=== PATIENT | female | born 1940 | race Caucasian/White ===

== ENCOUNTER → 2017-08-06 | Outpatient (CLI) | payer MEDICARE ==
[~2017-08-06] MED LIST: ALLO300 PO; ASPI325 PO; ASPI81CH; CALCAVITD PO; CEFU250 PO; CEPH500 PO; CYCL10 PO; DOCU100 PO; ELIQUIS5 MG PO; ERGO50000 PO; EXEM25 PO; FENO160 PO; FERR325 PO; FISH OIL PO; HYDACE5 PO; HYDACE7.5; HYDACE7.5 PO; HYDCOR2.5B TOP; HYDMOR2 PO; Hydrocodone-Ap1 EA20; IBUPROFEN PO; LEVSOD75 PO; LINZESS145 MCG PO; LISI20 PO; LISINOPRIL PO; METO100ER PO; MULTIVITAMIN PO; MULVITA PO; MULVITMIND PO; NAPR550 PO; NORT10 PO; NORT50 PO; Norco 7.5-3251 EACH PO; Nystatin15 GM TOP; OLME20; OXYB5 PO; PANT40 PO; Percocet 5-3251 EACH PO; SENN187 PO; SILSUL1TC; SIMV10 PO; STOMUL PO; STOOL SOFTENER PO; TRAZ100 PO; TRIM100 PO; VITAMIN C PO; WARF5; ZESTRIL40 MG PO
[2017-08-06 10:15] LABS: BASOPHILS ABSOLUTE AUTO 0.08 K/mm3 (0.00-0.23); BASOPHILS PERCENT AUTO 1 % (0-2); EOSINOPHILS ABSOLUTE AUTO 0.27 K/mm3 (0.00-0.68); EOSINOPHILS PERCENT AUTO 3 % (0-6); Hematocrit 46.4 % (33.0-51.0); Hemoglobin 15.4 g/dL (11.5-16.0); IMMATURE GRAN ABSOLUTE AUTO 0.04 K/mm3 (0.00-0.10); IMMATURE GRAN PERCENT AUTO 1 % (0-1); LYMPHOCYTES PERCENT AUTO 23 % (21-46); MONOCYTES ABSOLUTE AUTO 0.98 K/mm3 (0.16-1.47); MONOCYTES PERCENT AUTO 12 % (4-13); Mean Corpuscular HGB 32.5 pg (26.0-34.0); Mean Corpuscular HGB Conc 33.2 g/dL (31.5-36.5); Mean Corpuscular Volume 98 fL (80-100); Mean Platelet Volume 10.5 fL (9.1-12.4); NEUTROPHILS ABSOLUTE AUTO 5.07 K/mm3 (1.96-9.15); NEUTROPHILS PERCENT AUTO 61 % (41-73); Platelet Count 200 K/mm3 (150-400); RDW Coefficient Variation 13.6 % (11.7-14.2); RDW Standard Deviation 49.7 fL (35.1-46.3); Red Blood Cell Count 4.74 M/mm3 (3.80-5.20); White Blood Cell Count 8.34 K/mm3 (4.00-11.30)
[2017-08-06 10:28] LABS: Albumin, Blood 3.5 g/dL (3.4-5.0); Albumin/Globulin Ratio 0.9 (0.8-1.8); Bilirubin, Total 0.6 mg/dL (0.1-1.0); Bun/Creatinine Ratio 13.5 (12.0-20.0); Calcium, Blood 8.7 mg/dL (8.5-10.1); Creatinine, Blood 1.04 mg/dL (0.40-1.00); Globulin, Blood 3.7 g/dL (2.2-4.0); Total Protein, Blood 7.2 g/dL (6.4-8.2)
== END ==
LOC: LAB EV 10:12 → LAB SHORT 10:12
PROVIDERS: General Practice
DX: R06.2 Wheezing (principal)
CPT/HCPCS: 80053; 85025

== ENCOUNTER → 2017-08-15 | Outpatient (CLI) | payer MEDICARE | LOC: LAB EV 16:07 | DX: R05 Cough (principal) | CPT/HCPCS: 87070; 87077; 87186; 87205 ==

== ENCOUNTER 2017-12-29 00:20 | Emergency (ER) | payer OTHER, MEDICARE ==
[~2017-12-29] VITALS: Ht 152.4 cm; Wt 120.2 kg
[2017-12-29 04:45] LABS: Calcium, Ionized (POC) 1.14 mmol/L (1.10-1.46); Chloride (POC) 110 mmol/L (98-108); Creatinine (POC) 0.8 mg/dL (0.6-1.0); Glucose (ISTAT POC) 101 mg/dL (70-99); Sodium (POC) 144 mmol/L (135-148); Total CO2 (POC) 24 mmol/L (21-32)
== END 2017-12-29 05:33 | disposition home or self-care (01) ==
LOC: ER 00:20
PROVIDERS: Emergency Medicine
DX: R60.0 Localized edema (principal); E11.9 Type 2 diabetes mellitus without complications; Z79.899 Other long term (current) drug therapy; Z79.01 Long term (current) use of anticoagulants
CPT/HCPCS: 36415; 80047; 83880; 85014; 99284

== ENCOUNTER → 2018-02-19 | Outpatient (CLI) | payer MEDICARE | END | disposition home or self-care (01) | LOC: LAB EV 17:29 → LAB SHORT 17:29 | DX: N75.0 Cyst of Bartholin's gland (principal) | CPT/HCPCS: 87070; 87075; 87205 ==

== ENCOUNTER → 2018-04-23 | Outpatient (CLI) | payer MEDICARE | END | disposition home or self-care (01) | LOC: LAB 14:48 → LAB SHORT 14:48 | DX: N89.9 Noninflammatory disorder of vagina, unspecified (principal) | CPT/HCPCS: 87529 ==

== ENCOUNTER → 2019-02-02 | Outpatient (CLI) | payer MEDICARE, SELFPAY ==
[2019-02-02 10:40] LABS: BASOPHILS ABSOLUTE AUTO 0.04 K/mm3 (0.00-0.23); BASOPHILS PERCENT AUTO 0 % (0-2); EOSINOPHILS ABSOLUTE AUTO 0.01 K/mm3 (0.00-0.68); EOSINOPHILS PERCENT AUTO 0 % (0-6); Hematocrit 40.7 % (33.0-51.0); Hemoglobin 13.8 g/dL (11.5-16.0); IMMATURE GRAN ABSOLUTE AUTO 0.08 K/mm3 (0.00-0.10); IMMATURE GRAN PERCENT AUTO 1 % (0-1); LYMPHOCYTES ABSOLUTE AUTO 1.37 K/mm3 (0.84-5.20); LYMPHOCYTES PERCENT AUTO 8 % (21-46); MONOCYTES ABSOLUTE AUTO 1.09 K/mm3 (0.16-1.47); MONOCYTES PERCENT AUTO 7 % (4-13); Mean Corpuscular HGB 32.9 pg (26.0-34.0); Mean Corpuscular HGB Conc 33.9 g/dL (31.5-36.5); Mean Corpuscular Volume 97 fL (80-100); Mean Platelet Volume 10.7 fL (9.1-12.4); NEUTROPHILS ABSOLUTE AUTO 13.75 K/mm3 (1.96-9.15); NEUTROPHILS PERCENT AUTO 84 % (41-73); Platelet Count 153 K/mm3 (150-400); RDW Coefficient Variation 14.1 % (11.7-14.2); RDW Standard Deviation 50.1 fL (35.1-46.3); Red Blood Cell Count 4.19 M/mm3 (3.80-5.20); White Blood Cell Count 16.34 K/mm3 (4.00-11.30)
[2019-02-02 10:49] LABS: Albumin, Blood 2.7 g/dL (3.4-5.0); Albumin/Globulin Ratio 0.7 (0.8-1.8); Bilirubin, Total 0.9 mg/dL (0.1-1.0); Bun/Creatinine Ratio 13.3 (12.0-20.0); Creatinine, Blood 0.98 mg/dL (0.40-1.00); Globulin, Blood 3.9 g/dL (2.2-4.0); Potassium, Blood 4.1 mmol/L (3.5-5.5); Total Protein, Blood 6.6 g/dL (6.4-8.2)
[2019-02-02 11:20] LABS: International Normalized Ratio 1.41; Prothrombin Time Results 14.5 Sec (9.7-11.5)
== END ==
LOC: LAB EV 10:34 → LAB SHORT 10:34
PROVIDERS: Physician Assistant
DX: Z79.01 Long term (current) use of anticoagulants (principal); Z51.81 Encounter for therapeutic drug level monitoring; L03.119 Cellulitis of unspecified part of limb
CPT/HCPCS: 80053; 85025; 85610

== ENCOUNTER → 2019-02-03 | Outpatient (CLI) | payer MEDICARE, SELFPAY ==
[2019-02-03 11:41] LABS: BASOPHILS ABSOLUTE AUTO 0.05 K/mm3 (0.00-0.23); BASOPHILS PERCENT AUTO 1 % (0-2); EOSINOPHILS ABSOLUTE AUTO 0.11 K/mm3 (0.00-0.68); EOSINOPHILS PERCENT AUTO 1 % (0-6); Hematocrit 41.7 % (33.0-51.0); Hemoglobin 13.6 g/dL (11.5-16.0); IMMATURE GRAN ABSOLUTE AUTO 0.04 K/mm3 (0.00-0.10); IMMATURE GRAN PERCENT AUTO 0 % (0-1); LYMPHOCYTES ABSOLUTE AUTO 1.44 K/mm3 (0.84-5.20); LYMPHOCYTES PERCENT AUTO 15 % (21-46); MONOCYTES ABSOLUTE AUTO 0.74 K/mm3 (0.16-1.47); MONOCYTES PERCENT AUTO 8 % (4-13); Mean Corpuscular HGB 32.5 pg (26.0-34.0); Mean Corpuscular HGB Conc 32.6 g/dL (31.5-36.5); Mean Platelet Volume 10.5 fL (9.1-12.4); NEUTROPHILS ABSOLUTE AUTO 7.32 K/mm3 (1.96-9.15); NEUTROPHILS PERCENT AUTO 76 % (41-73); Platelet Count 158 K/mm3 (150-400); RDW Coefficient Variation 14.1 % (11.7-14.2); RDW Standard Deviation 51.8 fL (35.1-46.3); Red Blood Cell Count 4.19 M/mm3 (3.80-5.20)
[2019-02-03 11:43] LABS: Mean Corpuscular Volume 100 fL (80-100)
[2019-02-03 11:51] LABS: Alanine Aminotransfer (ALT/SGP 35 U/L (12-78); Albumin, Blood 2.8 g/dL (3.4-5.0); Albumin/Globulin Ratio 0.7 (0.8-1.8); Alk Phos 53 U/L (40-126); Anion Gap 10 mmol/L (6-16); Aspartate Aminotrans (AST/SGOT 29 U/L (12-37); Bilirubin, Total 0.4 mg/dL (0.1-1.0); Blood Urea Nitrogen 19 mg/dL (8-24); Bun/Creatinine Ratio 21.3 (12.0-20.0); CO2, Blood 26 mmol/L (21-32); Calcium, Blood 8.1 mg/dL (8.5-10.1); Chloride, Blood 104 mmol/L (98-108); Creatinine, Blood 0.89 mg/dL (0.40-1.00); Glomerular Filtration Rate >60 (60-); Glucose, Blood 174 mg/dL (70-99); Potassium, Blood 3.9 mmol/L (3.5-5.5); Sodium, Blood 140 mmol/L (136-145); Total Protein, Blood 6.8 g/dL (6.4-8.2)
[2019-02-03 12:25] LABS: International Normalized Ratio 1.4; Prothrombin Time Results 14.4 Sec (9.7-11.5)
== END | disposition home or self-care (01) ==
LOC: LAB EV 11:36 → LAB SHORT 11:36
PROVIDERS: Physician Assistant
DX: Z79.01 Long term (current) use of anticoagulants (principal); Z51.81 Encounter for therapeutic drug level monitoring; L03.119 Cellulitis of unspecified part of limb
CPT/HCPCS: 80053; 85025; 85610

== ENCOUNTER → 2019-04-22 | Outpatient (CLI) | payer MEDICARE | END | disposition home or self-care (01) | LOC: LAB EV 10:19 → LAB SHORT 10:19 | DX: S81.801A Unspecified open wound, right lower leg, initial encounter (principal) | CPT/HCPCS: 87070; 87075; 87077; 87186; 87205 ==

== ENCOUNTER → 2019-08-16 | Outpatient (CLI) | payer OTHER ==
[2019-08-17 10:32] LABS: Candida species (DNA Probe) Negative (NEGATIVE); G. vaginalis (DNA Probe) Positive (NEGATIVE); T. vaginalis (DNA Probe) Negative (NEGATIVE)
== END | disposition home or self-care (01) ==
LOC: LAB SHORT 11:45 → LAB 11:45
PROVIDERS: Advanced Practice Midwife
DX: N76.0 Acute vaginitis (principal)
CPT/HCPCS: 87070; 87147; 87205; 87480; 87510; 87660

== ENCOUNTER → 2019-09-09 | Outpatient (CLI) | payer OTHER ==
[2019-09-10 13:23] LABS: Candida species (DNA Probe) Negative (NEGATIVE); G. vaginalis (DNA Probe) Negative (NEGATIVE); T. vaginalis (DNA Probe) Negative (NEGATIVE)
== END | disposition home or self-care (01) ==
LOC: LAB SHORT 11:38 → LAB 11:38
PROVIDERS: Advanced Practice Midwife
DX: N76.0 Acute vaginitis (principal)
CPT/HCPCS: 87480; 87510; 87660

== ENCOUNTER → 2019-09-20 | Outpatient (CLI) | payer OTHER | END | disposition home or self-care (01) | LOC: LAB 10:28 → LAB SHORT 10:28 | DX: N76.0 Acute vaginitis (principal) | CPT/HCPCS: 87070; 87205 ==

== ENCOUNTER → 2019-11-13 | Outpatient (CLI) | payer OTHER | END | disposition home or self-care (01) | LOC: LAB SHORT 15:32 → LAB 15:32 → EDSTATUS 11-12 14:55 → LAB FUT 11-12 14:55 | DX: L08.9 Local infection of the skin and subcutaneous tissue, unspecified (principal) | CPT/HCPCS: 87070; 87205 ==

== ENCOUNTER 2020-01-19 13:04 | Inpatient (IN) | payer OTHER ==
[~2020-01-19] VITALS: Ht 172.7 cm; Wt 121.6 kg
[~2020-01-19 13:04] MED LIST changes: -ZESTRIL40 MG PO
[2020-01-19 13:52] LABS: PO2 Arterial 64.4 mmHg (80-100); pH Blood Arterial 7.43 (7.35-7.45)
[2020-01-19] MEDS ORDERED: WARF5 PO (13:54)
[2020-01-19] MEDS ORDERED: WARF2.5 PO (13:55)
[2020-01-19] MEDS ORDERED: ACYC200 PO (13:56)
[2020-01-19] MEDS ORDERED: OXYB5 PO (13:56)
[2020-01-19 14:06] LABS: BASOPHILS ABSOLUTE AUTO 0.06 K/mm3 (0.00-0.23); BASOPHILS PERCENT AUTO 0 % (0-2); EOSINOPHILS PERCENT AUTO 0 % (0-6); Hematocrit 43.9 % (33.0-51.0); Hemoglobin 14.1 g/dL (11.5-16.0); IMMATURE GRAN ABSOLUTE AUTO 0.09 K/mm3 (0.00-0.10); IMMATURE GRAN PERCENT AUTO 1 % (0-1); LYMPHOCYTES ABSOLUTE AUTO 1.13 K/mm3 (0.84-5.20); LYMPHOCYTES PERCENT AUTO 7 % (21-46); MONOCYTES ABSOLUTE AUTO 1.55 K/mm3 (0.16-1.47); MONOCYTES PERCENT AUTO 10 % (4-13); Mean Corpuscular HGB 30.2 pg (26.0-34.0); Mean Corpuscular HGB Conc 32.1 g/dL (31.5-36.5); Mean Corpuscular Volume 94 fL (80-100); Mean Platelet Volume 10.7 fL (9.1-12.4); NEUTROPHILS ABSOLUTE AUTO 12.37 K/mm3 (1.96-9.15); NEUTROPHILS PERCENT AUTO 81 % (41-73); Platelet Count 189 K/mm3 (150-400); RDW Coefficient Variation 14.4 % (11.7-14.2); Red Blood Cell Count 4.67 M/mm3 (3.80-5.20)
[2020-01-19 14:32] LABS: Alanine Aminotransfer (ALT/SGP 19 U/L (12-78); Albumin/Globulin Ratio 0.6 (0.8-1.8); Alk Phos 50 U/L (50-136); Anion Gap 4 mmol/L (6-16); Aspartate Aminotrans (AST/SGOT 33 U/L (12-37); Blood Urea Nitrogen 18 mg/dL (8-24); Bun/Creatinine Ratio 16.8 (12.0-20.0); CO2, Blood 27 mmol/L (21-32); Calcium, Blood 8.3 mg/dL (8.5-10.1); Chloride, Blood 104 mmol/L (98-108); Creatinine, Blood 1.07 mg/dL (0.40-1.00); Globulin, Blood 4.8 g/dL (2.2-4.0); Glomerular Filtration Rate 52 (60-); Glucose, Blood 162 mg/dL (70-99); Potassium, Blood 4.9 mmol/L (3.5-5.5); Sodium, Blood 135 mmol/L (136-145); Total Protein, Blood 7.8 g/dL (6.4-8.2); Troponin I <0.015 ng/mL (0.000-0.040)
[2020-01-19 16:34] LABS: Source, Urine Catheter
[2020-01-19 16:38] LABS: Bilirubin, Urine Neg (Neg); Blood, Urine 5+ (Neg); Glucose Qualitative, Urine Neg (Neg); Ketones, Urine 2+ (Neg); Leukocyte Esterase, Urine 3+ (Neg); Nitrite, Urine Pos (Neg); Protein, Urine 2+ (Neg); Urobilinogen, Urine NORM (Normal); pH, Urine 6.5 (5.0-8.0)
[2020-01-19 16:45] LABS: Appearance, Urine Hazy (Clear); Color, Urine Yellow (P-Yellow)
[2020-01-19 16:46] LABS: White Blood Cells, Urine TNTC /hpf (0-5)
[2020-01-19 16:47] LABS: Bacteria Many /hpf; Squamous Epithelial Cells Few /hpf (Few)
[2020-01-19] MEDS ORDERED: HYDACE10B PO (18:06)
[2020-01-19 19:23] LABS: International Normalized Ratio 2.52; Prothrombin Time Results 25.6 Sec (9.7-11.5)
[2020-01-20 03:53] LABS: BASOPHILS ABSOLUTE AUTO 0.06 K/mm3 (0.00-0.23); BASOPHILS PERCENT AUTO 0 % (0-2); EOSINOPHILS PERCENT AUTO 0 % (0-6); Hematocrit 39.9 % (33.0-51.0); Hemoglobin 12.5 g/dL (11.5-16.0); IMMATURE GRAN ABSOLUTE AUTO 0.09 K/mm3 (0.00-0.10); IMMATURE GRAN PERCENT AUTO 1 % (0-1); LYMPHOCYTES ABSOLUTE AUTO 2.32 K/mm3 (0.84-5.20); LYMPHOCYTES PERCENT AUTO 12 % (21-46); MONOCYTES PERCENT AUTO 11 % (4-13); Mean Corpuscular HGB 30.4 pg (26.0-34.0); Mean Corpuscular HGB Conc 31.3 g/dL (31.5-36.5); Mean Corpuscular Volume 97 fL (80-100); Mean Platelet Volume 10.7 fL (9.1-12.4); NEUTROPHILS ABSOLUTE AUTO 14.88 K/mm3 (1.96-9.15); NEUTROPHILS PERCENT AUTO 77 % (41-73); Platelet Count 161 K/mm3 (150-400); RDW Coefficient Variation 14.6 % (11.7-14.2); RDW Standard Deviation 52.7 fL (35.1-46.3); Red Blood Cell Count 4.11 M/mm3 (3.80-5.20); White Blood Cell Count 19.45 K/mm3 (4.00-11.30)
[2020-01-20 04:09] LABS: Bun/Creatinine Ratio 14.7 (12.0-20.0); Calcium, Blood 7.2 mg/dL (8.5-10.1); Creatinine, Blood 1.16 mg/dL (0.40-1.00); Potassium, Blood 4.2 mmol/L (3.5-5.5)
[2020-01-20 04:17] LABS: International Normalized Ratio 2.43; Prothrombin Time Results 24.7 Sec (9.7-11.5)
--- NOTE | 2020-01-20 06:11 | NUR ---
ADMIT NOTE/SHIFT SUMMARY PATIENT VERY SLEEPY UPON ADMIT AND IS UNABLE TO FINISH HER SENTENCES. PATIENT ALSO SLOW WITH HER RESPONSES. PATIENT MEDICATED FOR AN ELEIVATED TEMP PER ORDERS. THROUGHOUT THE NIGHT PATIENT APPEARED TO BE ABLE TO STAY AWAKE BETTER AND CARRY ON A CONVERSATION BETTER. PATIENT APPEARED TO BE ALERT AND ORIENTED X 3. PATIENT ENCOURAGED TO TURN BUT DOES NOT LIKE TO HAVE THE PILLOW UNDERNEATH HER. IV FLUIDS RUNNING PER ORDERS. WILL CONTINUE TO MONITOR PATIENT AND REPORT TO ONCOMING RN.
--- NOTE | 2020-01-20 18:12 | NUR ---
SHIFT SUMMARY; A/A/OX4 DURING AM SHIFT. BEDREST DURING SHIFT. JOHNSON IN PLACE DRAINING CLOUDY DARK YELLOW URINE. IV FLUIDS INFUSING AT 100ML/HR. AT APPROX 1600 APPEARED AGITATED AND CONFUSED. SEVERAL REQUESTS BY PT, THEN TOLD RN'S TO "GET OUT OF ROOM". STATES IS BRINGING COCKTAILS FOR A CLOSET LIBERTARIAN. SPOUSE ARRIVES AND STATES APPEARS AT BASELINE AND JUST GETS FRUSTRATED AND EXPRESSES HERSELF IN THIS MANOR. ASKED SPOUSE SEVERAL TIMES IF HE FEELS SHE IS MORE CONFUSED THAN YESTERDAY AND HE STATES NO. ASSISTED TO BEDPAN FOR BM IN EVENING. REDNESS NOTED TO RIGHT BUTTOX WITH SMALL BUMP WITH NO TISSUE BREAKDOWN. Q2 TURNS MAINTAINED DURING SHIFT. WILL CONTINUE TO MONITOR AND TREAT UNTIL SHIFT CHANGE.
--- NOTE | 2020-01-20 21:25 | NUR ---
ASSUMED CARE OF PATIENT AT APPROXIMATELY 1900 FROM SIDNEY Cool RN. PATIENT ALERT AND ORIENTED X4; MAKES ODD STATEMENTS AT TIMES. PATIENT BEDREST; Q2H TURNS. PATIENT DENIES PAIN, NUMBNESS, TINGLING, DIZZINESS OR NAUSEA. PATIENT NSR W/ BBB ON TELE; OXYGEN SATURATION ABOVE 90% ON 3LPM VIA NC (BASELINE). IVF INFUSING PER ORDER. URINARY CATH DRAINING OH URINE. PATIENT ATTEMPTED BM ON BEDPAN BUT ONLY HAD GAS. PATIENT CURRENTLY RESTING IN BED; CALL LIGHT IN REACH; BED IN LOWEST POSISTION; BED ALARM ON; WILL CONTINUE TO MONITOR AND ASSESS UNTIL END OF SHIFT.
--- NOTE | 2020-01-21 04:13 | NUR ---
CALLED DR. IRVING REGARDING PATIENT'S INCREASE IN BLOOD PRESSURE; ORDERS TO D/C IV FLUIDS. WILL CONTINUE TO MONITOR AND ASSESS UNTIL END OF SHIFT
[2020-01-21 04:31] LABS: BASOPHILS ABSOLUTE AUTO 0.03 K/mm3 (0.00-0.23); BASOPHILS PERCENT AUTO 0 % (0-2); EOSINOPHILS ABSOLUTE AUTO 0.01 K/mm3 (0.00-0.68); EOSINOPHILS PERCENT AUTO 0 % (0-6); Hematocrit 40.2 % (33.0-51.0); Hemoglobin 12.3 g/dL (11.5-16.0); IMMATURE GRAN ABSOLUTE AUTO 0.08 K/mm3 (0.00-0.10); IMMATURE GRAN PERCENT AUTO 1 % (0-1); LYMPHOCYTES ABSOLUTE AUTO 1.58 K/mm3 (0.84-5.20); LYMPHOCYTES PERCENT AUTO 11 % (21-46); MONOCYTES ABSOLUTE AUTO 1.78 K/mm3 (0.16-1.47); MONOCYTES PERCENT AUTO 12 % (4-13); Mean Corpuscular HGB 29.4 pg (26.0-34.0); Mean Corpuscular HGB Conc 30.6 g/dL (31.5-36.5); Mean Corpuscular Volume 96 fL (80-100); Mean Platelet Volume 11.5 fL (9.1-12.4); NEUTROPHILS ABSOLUTE AUTO 11.12 K/mm3 (1.96-9.15); NEUTROPHILS PERCENT AUTO 76 % (41-73); Platelet Count 167 K/mm3 (150-400); RDW Coefficient Variation 14.4 % (11.7-14.2); RDW Standard Deviation 51.6 fL (35.1-46.3); Red Blood Cell Count 4.18 M/mm3 (3.80-5.20)
[2020-01-21 04:43] LABS: International Normalized Ratio 2.18; Prothrombin Time Results 22.3 Sec (9.7-11.5)
[2020-01-21 04:55] LABS: Anion Gap 3 mmol/L (6-16); Blood Urea Nitrogen 14 mg/dL (8-24); Bun/Creatinine Ratio 15.5 (12.0-20.0); CO2, Blood 28 mmol/L (21-32); Calcium, Blood 7.4 mg/dL (8.5-10.1); Chloride, Blood 108 mmol/L (98-108); Glomerular Filtration Rate >60 (60-); Glucose, Blood 143 mg/dL (70-99); Potassium, Blood 4.1 mmol/L (3.5-5.5); Sodium, Blood 139 mmol/L (136-145)
--- NOTE | 2020-01-21 06:16 | NUR ---
PATIENT SLEPT ABOUT SIX HOURS LAST NIGHT. PATIENT REQUESTED BEDPAN MULTIPLE TIMES AND DID NOT HAVE MUCH OUTPUT; SMALL PELLETS. WILL CONTINUE TO MONITOR AND ASSESS UNTIL END OF SHIFT.
--- NOTE | 2020-01-21 18:47 | NUR ---
Call to Nena Duenas regarding pt's elevated blood pressure, still maintaining following administration of regularly scheduled meds this evening. New orders received for apresoline, which was administered at this time.
[2020-01-22 03:41] LABS: BASOPHILS ABSOLUTE AUTO 0.05 K/mm3 (0.00-0.23); BASOPHILS PERCENT AUTO 0 % (0-2); EOSINOPHILS ABSOLUTE AUTO 0.01 K/mm3 (0.00-0.68); EOSINOPHILS PERCENT AUTO 0 % (0-6); Hematocrit 42.9 % (33.0-51.0); Hemoglobin 13.4 g/dL (11.5-16.0); IMMATURE GRAN ABSOLUTE AUTO 0.05 K/mm3 (0.00-0.10); IMMATURE GRAN PERCENT AUTO 0 % (0-1); LYMPHOCYTES PERCENT AUTO 12 % (21-46); MONOCYTES ABSOLUTE AUTO 1.59 K/mm3 (0.16-1.47); MONOCYTES PERCENT AUTO 12 % (4-13); Mean Corpuscular HGB Conc 31.2 g/dL (31.5-36.5); Mean Corpuscular Volume 96 fL (80-100); Mean Platelet Volume 10.3 fL (9.1-12.4); NEUTROPHILS ABSOLUTE AUTO 9.71 K/mm3 (1.96-9.15); NEUTROPHILS PERCENT AUTO 75 % (41-73); Platelet Count 173 K/mm3 (150-400); RDW Coefficient Variation 14.2 % (11.7-14.2); Red Blood Cell Count 4.47 M/mm3 (3.80-5.20); White Blood Cell Count 12.91 K/mm3 (4.00-11.30)
[2020-01-22 03:55] LABS: International Normalized Ratio 2.3; Prothrombin Time Results 23.5 Sec (9.7-11.5)
[2020-01-22 04:02] LABS: Anion Gap 6 mmol/L (6-16); Blood Urea Nitrogen 12 mg/dL (8-24); Bun/Creatinine Ratio 18.2 (12.0-20.0); CO2, Blood 23 mmol/L (21-32); Calcium, Blood 7.8 mg/dL (8.5-10.1); Chloride, Blood 107 mmol/L (98-108); Creatinine, Blood 0.66 mg/dL (0.40-1.00); Glomerular Filtration Rate >60 (60-); Glucose, Blood 140 mg/dL (70-99); Potassium, Blood 4.1 mmol/L (3.5-5.5); Sodium, Blood 136 mmol/L (136-145)
--- NOTE | 2020-01-22 05:31 | NUR ---
SHIFT SUMMARY PT SLEEPING IN ROOM COMFORTABLY AT THIS TIME. NO ACUTE CHANGES IN STATUS T/O NIGHT. PT SLEPT WELL T/O NIGHT. RESP EVEN UNLABORED ON 3.5 L NC W/ SATS >92%. JOHNSON CATH IN PLACE DRAINING TO GRAVITY. PT SORES TO LABIA CLEANED ONCE DURING NIGHT, D/T PT SCRATCHING AT THEM AND CAUSING BLEEDING. PT DENIED OTHER NEEDS. DENIED ANY CP OR SOB. MEDICATED FOR HIGH BP DURING NIGHT. PT CONTINUES TO HAVE HTN DESPITE PRN MEDS. CALL LIGHT IN REACH.
--- NOTE | 2020-01-22 08:52 | NUR ---
CARE ASSUMED CARE AND REPORT ASSUMED FROM NIGHT RN. PT SITTING UPRIGHT IN BED BUT IS DROWSY AND SLOW TO RESPOND. A/O X 3. DENIES ANY PAIN THIS AM. STATES VAGINAL BURNING AND STINGING HAS RESOLVED SINCE HAVING JOHNSON CATHETER INSERTED. LUNG SOUNDS DIMINISHED THROUGHOUT ALL HU. SPO2 93% ON 3.5L. BP ELEVATED 212/110. MD ROJAS AWARE AND NORVASC 2.5 MG GIVEN. CXR TO BE OBTAINED THIS AM. PT REFUSING TO BE FITTED FOR CPAP. TEMP 99.4. UPDATED AT BEDSIDE. IV SALINE LOCKED. IRREGULAR RHYTHM, HR 100-120. 0845 - PT WHEELED DOWN TO XRAY WITH TRANSPORT.
--- NOTE | 2020-01-22 09:27 | NUR ---
RETURN FROM XRY 0915 - PT RETURNED FROM XRAY. SITTING UP IN BED EATING BREAKFAST. SPO2 94% ON 4L NC
--- NOTE | 2020-01-22 12:28 | NUR ---
REASSESSMENT PT SITTING UPRIGHT IN BED. WAS SLEEPING UPON ENTRANCE INTO ROOM. BP ELEVATED; SEE TRENDS. HYDRALAZINE 10 MG IVP GIVEN AT 1220; WILL RECHECK BP AFTER LUNCH. PT CONTINUES TO WEAR 4L NC O2. WILL CONTINUE TO MONITOR.
--- NOTE | 2020-01-22 16:22 | NUR ---
REASSESSMENT PT RECEIVED COMPLETE BEDBATH AND LINEN CHANGE WITH CATHETER CARE AND SKIN CARE TO PERINEUM. HAD SMEAR OF A BM. BREIF CHANGED UNDER BUTTOCKS AND MEPILEX APPLIED TO BUTTOCKS. OXYCODONE PO GIVEN FOR PAIN. ANBX INFUSING. HYDRALAZINE 10 MG IVP GIVEN FOR ELEVATED BP. LOW GRADE TEMP. WILL CONTINUE TO MONITOR.
--- NOTE | 2020-01-22 18:09 | NUR ---
SHIFT SUMMARY PT REMAINED IN BED ENTIRE SHIFT. BP ELEVATED DURING SHIFT. PT RECEIVED 2 DOSES OF HYDRALAZINE AND HAS BEEN STARTED ON NORVASC. TMAX 99.6. 02 NEEDS DOWN TO 2L NC. CONTINUES TO REFUSE RECOMMENDATIONS FOR CPAP. RECIEVED COMPLETE BEDBATH AND LINEN CHANGE. BRIEF LOOSELY PLACED UNDER PT TO OBTAIN CONTENTS LEAKING FROM LESIONS IN RADHA AREA. TRAIMCINOLONE AND NYSTATIN CREAM APPLIED TO PANUS AND ABDOMINAL FOLDS. HAS BEEN AT BEDSIDE OFF/ON DURING ENTIRE SHIFT. WILL GIVE BEDSIDE, HANDOFF REPORT TO KOBE BOO.
[2020-01-23 04:10] LABS: BASOPHILS ABSOLUTE AUTO 0.06 K/mm3 (0.00-0.23); BASOPHILS PERCENT AUTO 1 % (0-2); EOSINOPHILS ABSOLUTE AUTO 0.04 K/mm3 (0.00-0.68); EOSINOPHILS PERCENT AUTO 0 % (0-6); Hematocrit 42.3 % (33.0-51.0); Hemoglobin 13.8 g/dL (11.5-16.0); IMMATURE GRAN ABSOLUTE AUTO 0.05 K/mm3 (0.00-0.10); IMMATURE GRAN PERCENT AUTO 0 % (0-1); LYMPHOCYTES ABSOLUTE AUTO 1.97 K/mm3 (0.84-5.20); LYMPHOCYTES PERCENT AUTO 17 % (21-46); MONOCYTES ABSOLUTE AUTO 1.65 K/mm3 (0.16-1.47); MONOCYTES PERCENT AUTO 14 % (4-13); Mean Corpuscular HGB Conc 32.6 g/dL (31.5-36.5); Mean Corpuscular Volume 92 fL (80-100); Mean Platelet Volume 10.7 fL (9.1-12.4); NEUTROPHILS ABSOLUTE AUTO 7.67 K/mm3 (1.96-9.15); NEUTROPHILS PERCENT AUTO 67 % (41-73); Platelet Count 225 K/mm3 (150-400); RDW Coefficient Variation 14.3 % (11.7-14.2); RDW Standard Deviation 48.3 fL (35.1-46.3); White Blood Cell Count 11.44 K/mm3 (4.00-11.30)
[2020-01-23 04:24] LABS: International Normalized Ratio 2.57; Prothrombin Time Results 26.1 Sec (9.7-11.5)
[2020-01-23 04:31] LABS: Anion Gap 7 mmol/L (6-16); Blood Urea Nitrogen 11 mg/dL (8-24); Bun/Creatinine Ratio 16.5 (12.0-20.0); CO2, Blood 25 mmol/L (21-32); Calcium, Blood 8.1 mg/dL (8.5-10.1); Chloride, Blood 105 mmol/L (98-108); Creatinine, Blood 0.67 mg/dL (0.40-1.00); Glomerular Filtration Rate >60 (60-); Glucose, Blood 133 mg/dL (70-99); Potassium, Blood 3.7 mmol/L (3.5-5.5); Sodium, Blood 137 mmol/L (136-145)
--- NOTE | 2020-01-23 06:33 | NUR ---
SHIFT SUMMARY PT RESTING IN ROOM AT THIS TIME. PT HAS HAD SEVERAL EPISODES OF AGGITATION AND FRUSTRATION DURING NIGHT. PT MADE MULTIPLE ODD COMMENTS DURING NIGHT DEMANDING STAFF TO LEAVE THE ROOM, OR TO "PAY HER WHAT SHE'S DUE". PT THREATENED TO SLAP INFORMATION SYSTEMS SECURITY DEVELOPER DURING MORNING DRAW. AND APPEARS TO BE MORE CONFUSED THIS AM. RESP EVEN AND SLIGHTLY TACHY ON 2L NC W/ SATS >92%. JOHNSON CATH IN PLACE DRAINING YELLOW URINE. LABIA SORES CLEANED DURING NIGHT AFTER BOOST, PT REPORTS PAINFUL TO TOUCH, MINOR BLEEDING NOTED TO AREA, SOME REDNESS FROM SCRATCHING NOTED. PT ALSO STATES THIS AM "DO NOT TALK ABOUT THAT DIABETIC NONSENSE IN HERE. IF YOU MENTION DIABETES I'LL SLAP YOU AND KICK YOU OUT". AT THIS TIME, EDUCATION IS NOT CONDUCIVE TO CALMING PT. WILL PASS ALONG TO DAY SHIFT RN. CALL LIGHT IN REACH.
--- NOTE | 2020-01-23 07:25 | NUR ---
ASSUMED PATIENT CARE. PATIENT RESTING COMFORTABLY IN BED, NO SIGNS OF ACUTE DISTRESS, WCTM.
--- NOTE | 2020-01-23 10:45 | NUR ---
PATIENT BP REMAINS ELEVATED, DR. ROJAS NOTIFIED. THIS RN RECHECKED BP AFTER PO BP MEDS ADMINISTERED, BP REMAINED ELEVATED AND HYDRALAZINE GIVEN. WCJOHN.
[2020-01-23 14:44] LABS: Thyroid Stimulating Hormone 3.19 uIU/mL (0.360-4.800); Troponin I 0.025 ng/mL (0.000-0.040)
--- NOTE | 2020-01-23 18:14 | NUR ---
NO ACUTE EVENTS THIS SHIFT. PATIENT MINIMALLY PARTICIPATED IN REPOSITIONING T/O SHIFT. PATIENT'S RADHA AREA CHECKED T/O SHIFT, NO NOTABLE DISCHARGE NOTED. PATIENT IS ANXIOUS REGARDING DISCHARGE PLANS, PERSONAL FINANCES, AND FAMILY DYNAMICS, THERAPEUTIC LISTENING PROVIDED BY THIS RN. BP ELEVATED THIS SHIFT, DR. ROJAS NOTIFIED, MEDICATIONS ADJUSTED AND GIVEN PER EMAR BY THIS RN. PLAN IS TO DISCHARGE TO SNF PENDING PT EVAL AND AFEBRILE STATUS.
--- NOTE | 2020-01-23 19:17 | NUR ---
RELINQUISHED PATIENT CARE.
[2020-01-24 04:19] LABS: BASOPHILS ABSOLUTE AUTO 0.11 K/mm3 (0.00-0.23); BASOPHILS PERCENT AUTO 1 % (0-2); EOSINOPHILS ABSOLUTE AUTO 0.14 K/mm3 (0.00-0.68); EOSINOPHILS PERCENT AUTO 1 % (0-6); Hematocrit 48.1 % (33.0-51.0); Hemoglobin 15.6 g/dL (11.5-16.0); IMMATURE GRAN ABSOLUTE AUTO 0.14 K/mm3 (0.00-0.10); IMMATURE GRAN PERCENT AUTO 1 % (0-1); LYMPHOCYTES ABSOLUTE AUTO 1.88 K/mm3 (0.84-5.20); LYMPHOCYTES PERCENT AUTO 17 % (21-46); MONOCYTES ABSOLUTE AUTO 1.47 K/mm3 (0.16-1.47); MONOCYTES PERCENT AUTO 13 % (4-13); Mean Corpuscular HGB 29.7 pg (26.0-34.0); Mean Corpuscular HGB Conc 32.4 g/dL (31.5-36.5); Mean Corpuscular Volume 92 fL (80-100); Mean Platelet Volume 10.3 fL (9.1-12.4); NEUTROPHILS ABSOLUTE AUTO 7.37 K/mm3 (1.96-9.15); NEUTROPHILS PERCENT AUTO 66 % (41-73); Platelet Count 253 K/mm3 (150-400); RDW Standard Deviation 47.8 fL (35.1-46.3); Red Blood Cell Count 5.25 M/mm3 (3.80-5.20); White Blood Cell Count 11.11 K/mm3 (4.00-11.30)
[2020-01-24 04:42] LABS: Alanine Aminotransfer (ALT/SGP 30 U/L (12-78); Albumin, Blood 2.4 g/dL (3.4-5.0); Albumin/Globulin Ratio 0.5 (0.8-1.8); Alk Phos 59 U/L (50-136); Anion Gap 8 mmol/L (6-16); Aspartate Aminotrans (AST/SGOT 41 U/L (12-37); Bilirubin, Total 0.5 mg/dL (0.1-1.0); Blood Urea Nitrogen 13 mg/dL (8-24); Bun/Creatinine Ratio 19.2 (12.0-20.0); CO2, Blood 25 mmol/L (21-32); Calcium, Blood 8.3 mg/dL (8.5-10.1); Chloride, Blood 105 mmol/L (98-108); Creatinine, Blood 0.68 mg/dL (0.40-1.00); Globulin, Blood 5.1 g/dL (2.2-4.0); Glomerular Filtration Rate >60 (60-); Glucose, Blood 133 mg/dL (70-99); Potassium, Blood 3.7 mmol/L (3.5-5.5); Sodium, Blood 138 mmol/L (136-145); Total Protein, Blood 7.5 g/dL (6.4-8.2)
--- NOTE | 2020-01-24 05:43 | NUR ---
SHIFT SUMMARY PT SLEEPING IN ROOM COMFORTABLY AT THIS TIME. NO ACUTE CHANGES IN STATUS. PT DID HAVE 1 LARGE BM DURING NIGHT. PT WAS ABLE TO MOVE TO BSC W/ 1 ASSIST FOR BM. PT NOW ON RA W/ SATS >92%. DENIED ANY SOB OR CP. PT CONTINUES TO HAVE CONFUSION UPON WAKING. REQUIRES SOME REORIENTATION. PT CONTINUES TO MAKE ODD STATEMENTS AND BE AGGITATED TO STAFF AT TIMES. LABIA SORES OPEN AND CONTINUE TO OOZE SMALL AMOUNTS OF BLOOD. SORES CLEANED AND DRIED DURING SHIFT. PT DENIED OTHER NEEDS. CALL LIGHT IN REACH.
--- NOTE | 2020-01-24 08:28 | NUR ---
ASSUMED CARE AT 0700, REPORT EMA HARMON. RESTING IN BED IN LOW FOWLERS SUPINE. JOHNSON CATH IN PLACE DRAINING OH URINE. LABIAL LESIONS OPEN AND APPEAR RAW, SLIGHT SERIOUS DRAINAGE AT THIS TIME. PT STATES SHE TOOK A VACATION TO [place] ON THE TV, THEN CHANGES SUBJECT AND STATES DOESN'T LIKE TO LOOK AT BIG THINGS. POINTS AT COMMODE AND STATES DID YOU SEE THAT LITTLE THING. WILL CONTINUE TO MONITOR AND PLAN FOR POSSIBLE DC TODAY TO [facility].
[2020-01-24 11:47] LABS: International Normalized Ratio 3.16; Prothrombin Time Results 31.7 Sec (9.7-11.5)
--- NOTE | 2020-01-24 17:39 | NUR ---
SHIFT SUMMARY PATIENT TO THE FLOOR MID AFTERNOON. PATIENT ALERT AND ORIENTED THIS SHIFT. PATIENT REPONDS WITH SHORT ANSWERS. PATIENT HAS REMIANED IN BED THIS SHIFT. PATIENT'S IN THE ROOM SHORTLY AFTER PATIENT'S ARRIVAL. PATIENT PROVIDED WITH ICE WATER. NO FURTHER NEEDS AT THIS TIME.
--- NOTE | 2020-01-25 04:43 | NUR ---
SHIFT SUMMARY: 79 Y/O OBESE FEMALE RESTED COMFORTABLY ALL SHIFT; PTS JOHNSON DRAINING CLEAR YELLOW FLUID; DENIES PAIN OR NAUSEA; ALERT AND ORIENTED X 2, ABLE TO FOLLOW SIMPLE VERBAL COMMANDS; BED ALARM APPLIED, BED LOW POSITION WITH CALL LIGHT AT SIDE.
[2020-01-25 04:53] LABS: International Normalized Ratio 2.69; Prothrombin Time Results 27.2 Sec (9.7-11.5)
[2020-01-25 04:55] LABS: Albumin, Blood 2.4 g/dL (3.4-5.0); Anion Gap 6 mmol/L (6-16); Blood Urea Nitrogen 13 mg/dL (8-24); Bun/Creatinine Ratio 16.8 (12.0-20.0); CO2, Blood 27 mmol/L (21-32); Calcium, Blood 8.3 mg/dL (8.5-10.1); Chloride, Blood 108 mmol/L (98-108); Creatinine, Blood 0.78 mg/dL (0.40-1.00); Glomerular Filtration Rate >60 (60-); Glucose, Blood 126 mg/dL (70-99); Magnesium, Blood 2.1 mg/dL (1.6-2.4); Phosphorus, Blood 3.8 mg/dL (2.5-4.9); Potassium, Blood 3.7 mmol/L (3.5-5.5); Sodium, Blood 141 mmol/L (136-145)
[2020-01-25] MEDS ORDERED: ACET500 PO (11:15)
[2020-01-25] MEDS ORDERED: AMLO5 PO (11:16)
[2020-01-25] MEDS ORDERED: CEFTRIAXON2 GM/50 M1 IV (11:17)
[2020-01-25] MEDS ORDERED: FURO20 PO (11:17)
[2020-01-25] MEDS ORDERED: NYSTRIT TOP (11:18)
[2020-01-25] MEDS ORDERED: POTA20LUD PO (11:19)
[2020-01-25] MEDS ORDERED: ONDA4 PO (11:19)
[2020-01-25] MEDS ORDERED: SPIR25 PO (11:20)
[2020-01-25] MEDS ORDERED: VISBIOME PROBIOTIC PO (11:21)
--- NOTE | 2020-01-25 16:29 | NUR ---
DISCHARGE NOTE PATIENT HAS BEEN ALERT AND ORIENTED THROUGHOUT THIS SHIFT. PATIENT'S IN THE ROOM THIS MORNING AND AGAIN THIS AFTERNOON. PATIENT DISCHARGED TO [facility] VIA WHEELCHAIR AMBULANCE. REPORT CALLED TO [facility]. JOHNSON CATHETER REMOVED PRIOR TO DISCHARGE. POWERGLIDE WAS PLACED BY SARAHI Arana THIS AM FOR ANTIBIOTIC ADMINISTRATION AT [facility]. PATIENT WORKED WITH PT THIS SHIFT. PATIENT TRANSFERED TO WHEELCHAIR WITH 2 PERSON MODERATE ASSIST. PATIENT BELONGINGS WITH PATIENT'S UPON DISCHARGE.
== END 2020-01-25 16:19 | DRG 871 ==
LOC: ER 13:04 → ERHOLD 13:05 → PCU 13:05 → ERHOLD 13:05 → PCU 20:10 → MEDS 01-24 15:43
PROVIDERS: Emergency Medicine; Family Medicine; Internal Medicine Gastroenterology; Physician Assistant; ADMIT Internal Medicine Endocrinology, Diabetes & Metabolism
DX: A41.50 Gram-negative sepsis, unspecified (principal); J96.01 Acute respiratory failure with hypoxia; G92 Toxic encephalopathy; Z68.43 Body mass index [BMI] 50.0-59.9, adult; E66.2 Morbid (severe) obesity with alveolar hypoventilation; N39.0 Urinary tract infection, site not specified; E03.9 Hypothyroidism, unspecified; I10 Essential (primary) hypertension; Z90.12 Acquired absence of left breast and nipple; Z96.641 Presence of right artificial hip joint; E11.9 Type 2 diabetes mellitus without complications; R32 Unspecified urinary incontinence; Z96.653 Presence of artificial knee joint, bilateral; Z79.01 Long term (current) use of anticoagulants; G89.4 Chronic pain syndrome; I27.20 Pulmonary hypertension, unspecified; Z86.711 Personal history of pulmonary embolism
CPT/HCPCS: 36415; 36416; 36600; 51702; 71046; 71260; 80048; 80053; 80069; 81001; 82803; 82947; 83605; 83735; 83880; 84443; 84484; 85025; 85610; 87040; 87077; 87086; 87186; 93005; 93010; 93306; 94640; 96361-59; 96365-59; 96367-59; 96376-59; 97110; 97162; 97166; 97530; 99285-25; A9270; J0360; J0456; J0696; J7030; J7050; Q9967; U0002

== ENCOUNTER → 2020-04-06 | Outpatient (CLI) | payer OTHER ==
[~2020-04-06] MED LIST changes: +ACET500 PO; +ACYC200 PO; +AMLO5 PO; +CEFTRIAXON2 GM/50 M1 IV; +FURO20 PO; +HYDACE10B PO; +NYSTRIT TOP; +ONDA4 PO; +POTA20LUD PO; +SPIR25 PO; +VISBIOME PROBIOTIC PO; +WARF2.5 PO; +WARF5 PO
== END | disposition home or self-care (01) ==
LOC: LAB 18:47 → LAB SHORT 18:47
DX: R10.2 Pelvic and perineal pain (principal); Z96.0 Presence of urogenital implants
CPT/HCPCS: 87077; 87086; 87186

== ENCOUNTER 2020-04-19 20:02 | Emergency (ER) | payer OTHER ==
[~2020-04-19] VITALS: Ht 154.9 cm; Wt 110.7 kg
== END 2020-04-20 02:47 | disposition home or self-care (01) ==
LOC: ER 20:02
DX: Z48.00 Encounter for change or removal of nonsurgical wound dressing (principal); E11.9 Type 2 diabetes mellitus without complications; Z88.5 Allergy status to narcotic agent; Z88.6 Allergy status to analgesic agent; Z79.01 Long term (current) use of anticoagulants; Z79.899 Other long term (current) drug therapy
CPT/HCPCS: 99283

== ENCOUNTER → 2020-05-14 | Outpatient (CLI) | payer OTHER ==
[~2020-05-14] MED LIST changes: +LIDO700A20 TOP
== END | disposition home or self-care (01) ==
LOC: LAB 17:48
DX: K12.0 Recurrent oral aphthae (principal)
CPT/HCPCS: 87070; 87147; 87205

== ENCOUNTER → 2020-08-20 | Outpatient (CLI) | payer OTHER, SELFPAY | END | disposition home or self-care (01) | LOC: LAB SHORT 11:49 → LAB 11:49 | DX: K12.0 Recurrent oral aphthae (principal) | CPT/HCPCS: 87070; 87077; 87147; 87186; 87205 ==

== ENCOUNTER 2020-10-07 01:10 | Day surgery (SDC) | payer OTHER ==
[~2020-10-07 01:10] MED LIST changes: -LIDO700A20 TOP
== END 2020-10-07 23:23 | disposition home or self-care (01) ==
LOC: WOUND 01:10
DX: S31.40XA Unspecified open wound of vagina and vulva, initial encounter (principal); X58.XXXA Exposure to other specified factors, initial encounter; L30.4 Erythema intertrigo
CPT/HCPCS: A9270; G0463

== ENCOUNTER → 2020-10-20 | Outpatient (CLI) | payer OTHER ==
[~2020-10-20] MED LIST changes: +LIDO700A20 TOP
== END | disposition home or self-care (01) ==
LOC: LAB SHORT 18:09 → LAB 18:09
DX: N76.4 Abscess of vulva (principal)
CPT/HCPCS: 87070; 87075; 87205

== ENCOUNTER 2020-10-26 00:18 | Day surgery (SDC) | payer OTHER | END 2020-10-26 22:56 | disposition home or self-care (01) | LOC: WOUND 00:18 | DX: S31.40XD Unspecified open wound of vagina and vulva, subsequent encounter (principal); X58.XXXD Exposure to other specified factors, subsequent encounter; N76.4 Abscess of vulva; L02.214 Cutaneous abscess of groin; B00.9 Herpesviral infection, unspecified; E03.9 Hypothyroidism, unspecified; E78.5 Hyperlipidemia, unspecified; Z86.711 Personal history of pulmonary embolism; E11.9 Type 2 diabetes mellitus without complications; E66.01 Morbid (severe) obesity due to excess calories | CPT/HCPCS: A9270; G0463 ==

== ENCOUNTER 2020-11-02 00:19 | Day surgery (SDC) | payer OTHER | END 2020-11-02 23:02 | disposition home or self-care (01) | LOC: WOUND 00:19 | DX: S31.40XD Unspecified open wound of vagina and vulva, subsequent encounter (principal); L02.214 Cutaneous abscess of groin; N76.4 Abscess of vulva; B00.9 Herpesviral infection, unspecified; E11.9 Type 2 diabetes mellitus without complications; E66.01 Morbid (severe) obesity due to excess calories; E03.9 Hypothyroidism, unspecified; E78.5 Hyperlipidemia, unspecified | CPT/HCPCS: A9270; G0463 ==

== ENCOUNTER 2020-11-16 00:43 | Day surgery (SDC) | payer OTHER | END 2020-11-16 23:02 | disposition home or self-care (01) | LOC: WOUND 00:43 | DX: S31.40XD Unspecified open wound of vagina and vulva, subsequent encounter (principal); X58.XXXD Exposure to other specified factors, subsequent encounter; N76.4 Abscess of vulva; L02.214 Cutaneous abscess of groin; B00.9 Herpesviral infection, unspecified | CPT/HCPCS: A9270; G0463 ==

== ENCOUNTER 2020-11-30 00:57 | Day surgery (SDC) | payer OTHER | END 2020-12-01 02:59 | disposition home or self-care (01) | LOC: WOUND 00:57 | DX: S31.40XD Unspecified open wound of vagina and vulva, subsequent encounter (principal); X58.XXXD Exposure to other specified factors, subsequent encounter; N76.4 Abscess of vulva; L02.214 Cutaneous abscess of groin; B00.9 Herpesviral infection, unspecified; E03.9 Hypothyroidism, unspecified; E78.5 Hyperlipidemia, unspecified; E11.9 Type 2 diabetes mellitus without complications | CPT/HCPCS: A9270; G0463 ==

== ENCOUNTER 2020-12-07 00:40 | Day surgery (SDC) | payer OTHER | END 2020-12-07 23:41 | disposition home or self-care (01) | LOC: WOUND 00:40 | DX: L98.492 Non-pressure chronic ulcer of skin of other sites with fat layer exposed (principal); N76.4 Abscess of vulva; B00.9 Herpesviral infection, unspecified; E78.5 Hyperlipidemia, unspecified; I47.1 Supraventricular tachycardia; E03.9 Hypothyroidism, unspecified; M10.9 Gout, unspecified; E66.01 Morbid (severe) obesity due to excess calories; Z68.42 Body mass index [BMI] 45.0-49.9, adult; Z86.711 Personal history of pulmonary embolism; Z85.3 Personal history of malignant neoplasm of breast | CPT/HCPCS: A9270; G0463 ==

== ENCOUNTER 2020-12-21 03:40 | Day surgery (SDC) | payer OTHER | END 2020-12-21 23:00 | disposition home or self-care (01) | LOC: WOUND 03:40 | DX: S31.40XD Unspecified open wound of vagina and vulva, subsequent encounter (principal); X58.XXXD Exposure to other specified factors, subsequent encounter; N76.4 Abscess of vulva; L02.214 Cutaneous abscess of groin; B00.9 Herpesviral infection, unspecified; E03.9 Hypothyroidism, unspecified; E78.5 Hyperlipidemia, unspecified; E11.9 Type 2 diabetes mellitus without complications; Z86.711 Personal history of pulmonary embolism | CPT/HCPCS: G0463 ==

== ENCOUNTER 2021-01-04 02:47 | Day surgery (SDC) | payer OTHER | END 2021-01-04 23:49 | disposition home or self-care (01) | LOC: WOUND 02:47 | DX: S31.40XD Unspecified open wound of vagina and vulva, subsequent encounter (principal); X58.XXXD Exposure to other specified factors, subsequent encounter; N76.4 Abscess of vulva; L02.214 Cutaneous abscess of groin; B00.9 Herpesviral infection, unspecified; E03.9 Hypothyroidism, unspecified; E78.5 Hyperlipidemia, unspecified; E11.9 Type 2 diabetes mellitus without complications | CPT/HCPCS: A9270; G0463 ==

== ENCOUNTER 2021-01-06 10:41 | Inpatient (IN) | payer OTHER, MEDICARE ==
[~2021-01-06] VITALS: Ht 154.9 cm; Wt 108.9 kg
[2021-01-06 11:15] LABS: BASOPHILS ABSOLUTE AUTO 0.08 K/mm3 (0.00-0.23); BASOPHILS PERCENT AUTO 1 % (0-2); EOSINOPHILS ABSOLUTE AUTO 0.01 K/mm3 (0.00-0.68); EOSINOPHILS PERCENT AUTO 0 % (0-6); IMMATURE GRAN ABSOLUTE AUTO 0.08 K/mm3 (0.00-0.10); IMMATURE GRAN PERCENT AUTO 1 % (0-1); LYMPHOCYTES ABSOLUTE AUTO 3.39 K/mm3 (0.84-5.20); LYMPHOCYTES PERCENT AUTO 22 % (21-46); MONOCYTES ABSOLUTE AUTO 1.42 K/mm3 (0.16-1.47); MONOCYTES PERCENT AUTO 9 % (4-13); Mean Corpuscular HGB 29.6 pg (26.0-34.0); Mean Corpuscular HGB Conc 32.4 g/dL (31.5-36.5); Mean Corpuscular Volume 91 fL (80-100); Mean Platelet Volume 10.5 fL (9.1-12.4); NEUTROPHILS ABSOLUTE AUTO 10.56 K/mm3 (1.96-9.15); NEUTROPHILS PERCENT AUTO 68 % (41-73); Platelet Count 228 K/mm3 (150-400); RDW Standard Deviation 57.8 fL (35.1-46.3); Red Blood Cell Count 4.05 M/mm3 (3.80-5.20); White Blood Cell Count 15.54 K/mm3 (4.00-11.30)
[2021-01-06 11:27] LABS: Albumin, Blood 3.2 g/dL (3.4-5.0); Albumin/Globulin Ratio 0.7 (0.8-1.8); Bilirubin, Total 0.5 mg/dL (0.1-1.0); Bun/Creatinine Ratio 17.5 (12.0-20.0); Calcium, Blood 8.5 mg/dL (8.5-10.1); Creatinine, Blood 1.26 mg/dL (0.40-1.00); Globulin, Blood 4.6 g/dL (2.2-4.0); Potassium, Blood 5.7 mmol/L (3.5-5.5); Total Protein, Blood 7.8 g/dL (6.4-8.2)
[2021-01-06] MEDS ORDERED: ZESTRIL40 M1 PO (12:31)
[2021-01-06 13:07] LABS: Source, Urine Clean Catch
[2021-01-06 13:10] LABS: Appearance, Urine Hazy (Clear); Bilirubin, Urine Neg (Neg); Blood, Urine 1+ (Neg); Color, Urine Yellow (P-Yellow); Glucose Qualitative, Urine Neg (Neg); Ketones, Urine Neg (Neg); Leukocyte Esterase, Urine 3+ (Neg); Nitrite, Urine Neg (Neg); Protein, Urine 1+ (Neg); Urobilinogen, Urine NORM (Normal)
[2021-01-06 13:27] LABS: Bacteria Many /hpf; Red Blood Cells, Urine 0-2 /hpf (0-2); Squamous Epithelial Cells Rare /hpf (Few); White Blood Cells, Urine 50-100 /hpf (0-5)
[2021-01-06] MEDS ORDERED: WARF4 PO (13:31)
[2021-01-06 18:01] LABS: International Normalized Ratio 1.88; Prothrombin Time Results 19.6 Sec (9.7-11.5)
--- NOTE | 2021-01-06 19:24 | NUR ---
SHIFT SUMMARY: ASSUMED CARE OF PATIENT UPON HER ARRIVAL FROM ED AT 1814. AROUSES TO SPEECH, IS GRUNTING WITH MOVEMENT. OXYGEN AT 2 L/MIN NC, PLACED IN ED SHE DESATS TO MID 80%'S WHEN SLEEPING. JOHNSON CATHETER DRAINING CLOUDY YELLOW URINE. C/O PAIN NEAR LABIAL WOUND, BUT DENIED NEED FOR PAIN MEDICATION AT THIS TIME. REPORT GIVEN TO KOBE DUTTON RN.
--- NOTE | 2021-01-07 04:33 | NUR ---
SHIFT SUMMARY PATIENT HAD NO ACUTE CHANGES OBSERVED. AXO X 3 AND BEDREST. ON 2L O2 NC. JOHNSON PATENT AND DRAINING TO GRAVITY. PIV REMAINS INTACT. IV ABX INFUSED. NS INFUSING AT 100 mL/HR. LOW GRADE TEMP 99.0 DOWN FROM 100.6 AT SHIFT CHANGE. VSS. DENIES SOB AND N/V. RIGHT LABIA PAIN AT TIMES BUT DENIES PAIN MEDICATION. TAKES MEDICATION WHOLE WITH WATER. CALL LIGHT IN REACH. BED IN LOWEST POSITION. WILL CONTINUE TO MONITOR UNTIL DAY SHIFT NURSE ASSUMES CARE.
[2021-01-07 05:28] LABS: BASOPHILS ABSOLUTE AUTO 0.07 K/mm3 (0.00-0.23); BASOPHILS PERCENT AUTO 1 % (0-2); EOSINOPHILS ABSOLUTE AUTO 0.07 K/mm3 (0.00-0.68); EOSINOPHILS PERCENT AUTO 1 % (0-6); Hematocrit 34.5 % (33.0-51.0); Hemoglobin 11.1 g/dL (11.5-16.0); IMMATURE GRAN ABSOLUTE AUTO 0.04 K/mm3 (0.00-0.10); IMMATURE GRAN PERCENT AUTO 0 % (0-1); LYMPHOCYTES ABSOLUTE AUTO 3.67 K/mm3 (0.84-5.20); LYMPHOCYTES PERCENT AUTO 39 % (21-46); MONOCYTES ABSOLUTE AUTO 1.08 K/mm3 (0.16-1.47); MONOCYTES PERCENT AUTO 12 % (4-13); Mean Corpuscular HGB 29.7 pg (26.0-34.0); Mean Corpuscular HGB Conc 32.2 g/dL (31.5-36.5); Mean Corpuscular Volume 92 fL (80-100); Mean Platelet Volume 10.4 fL (9.1-12.4); NEUTROPHILS ABSOLUTE AUTO 4.42 K/mm3 (1.96-9.15); NEUTROPHILS PERCENT AUTO 47 % (41-73); Platelet Count 191 K/mm3 (150-400); RDW Coefficient Variation 17.1 % (11.7-14.2); RDW Standard Deviation 58.3 fL (35.1-46.3); Red Blood Cell Count 3.74 M/mm3 (3.80-5.20); White Blood Cell Count 9.35 K/mm3 (4.00-11.30)
[2021-01-07 05:39] LABS: International Normalized Ratio 1.79; Prothrombin Time Results 18.7 Sec (9.7-11.5)
[2021-01-07 06:11] LABS: Alanine Aminotransfer (ALT/SGP 18 U/L (12-78); Albumin, Blood 2.8 g/dL (3.4-5.0); Albumin/Globulin Ratio 0.8 (0.8-1.8); Alk Phos 39 U/L (50-136); Anion Gap 6 mmol/L (6-16); Aspartate Aminotrans (AST/SGOT 20 U/L (12-37); Bilirubin, Total 0.5 mg/dL (0.1-1.0); Blood Urea Nitrogen 14 mg/dL (8-24); Bun/Creatinine Ratio 15.7 (12.0-20.0); CO2, Blood 23 mmol/L (21-32); Calcium, Blood 7.8 mg/dL (8.5-10.1); Chloride, Blood 111 mmol/L (98-108); Creatinine, Blood 0.89 mg/dL (0.40-1.00); Globulin, Blood 3.5 g/dL (2.2-4.0); Glomerular Filtration Rate >60 (60-); Glucose, Blood 111 mg/dL (70-99); Phosphorus, Blood 3.6 mg/dL (2.5-4.9); Potassium, Blood 4.9 mmol/L (3.5-5.5); Sodium, Blood 140 mmol/L (136-145); Total Protein, Blood 6.3 g/dL (6.4-8.2)
[2021-01-07] MEDS ORDERED: Norco 10-325 T1 EACH PO (11:03)
--- NOTE | 2021-01-07 19:26 | NUR ---
SHIFT SUMMARY: NO ACUTE EVENTS. MENTATION HAS CLEARED, AND NEIGHBOR STATED SHE IS BACK TO HER BASLINE. NO EVENTS ON TELEMETRY. C/O PAIN IN PERIAREA WHILE SITTING IN CHAIR; MEDICATED PER EMAR WITH GOOD RELIEF. APPLIED LIDOCAINE OINTMENT AFTER CATH AND PERICARE THIS AFTERNOON. R LABIA IS INDURATED, RUST COLORED DRAINAGE ON ATTENDS. JOHNSON DRAINING ADEQUATE URINE. DR. LUIS A VYAS (SP?), HER SILL WORKER, STOPPED IN FOR A VISIT TODAY, STATED THAT WOUND CULTURES ARE PENDING. GOOD APPETITE, CBG < 150. WORKED WITH PT/OT. HOPING TO GO HOME TOMORROW.
--- NOTE | 2021-01-08 03:54 | NUR ---
SHIFT SUMMARY PATIENT HAD NO ACUTE CHANGES OBSERVED. AXOX 3 AND ONE ASSIST TO BSC. JOHNSON PATENT AND DRAINING TO GRAVITY. PIV REMAINS INTACT. NS INFUSING AT 50 mL/HR. IV ABX INFUSED. SOLAR THERMAL TECHNICIAN REPORTS NSR 88. RIGHT LABIA PAIN AT TIMES AND DENIES PAIN MEDICATION. VSS/AFEBRILE. DENIES SOB AND N/V. ANXIOUS T/O SHIFT. CALL LIGHT IN REACH. BED IN LOWEST POSITION. WILL CONTINUE TO MONITOR UNTIL DAY SHIFT NURSE ASSUMES CARE.
[2021-01-08 05:53] LABS: BASOPHILS ABSOLUTE AUTO 0.07 K/mm3 (0.00-0.23); BASOPHILS PERCENT AUTO 1 % (0-2); EOSINOPHILS ABSOLUTE AUTO 0.24 K/mm3 (0.00-0.68); EOSINOPHILS PERCENT AUTO 3 % (0-6); Hematocrit 34.5 % (33.0-51.0); Hemoglobin 10.9 g/dL (11.5-16.0); IMMATURE GRAN ABSOLUTE AUTO 0.05 K/mm3 (0.00-0.10); IMMATURE GRAN PERCENT AUTO 1 % (0-1); LYMPHOCYTES ABSOLUTE AUTO 3.43 K/mm3 (0.84-5.20); LYMPHOCYTES PERCENT AUTO 42 % (21-46); MONOCYTES ABSOLUTE AUTO 1.05 K/mm3 (0.16-1.47); MONOCYTES PERCENT AUTO 13 % (4-13); Mean Corpuscular HGB 29.2 pg (26.0-34.0); Mean Corpuscular HGB Conc 31.6 g/dL (31.5-36.5); Mean Corpuscular Volume 93 fL (80-100); Mean Platelet Volume 10.4 fL (9.1-12.4); NEUTROPHILS ABSOLUTE AUTO 3.35 K/mm3 (1.96-9.15); NEUTROPHILS PERCENT AUTO 41 % (41-73); Platelet Count 199 K/mm3 (150-400); RDW Coefficient Variation 16.9 % (11.7-14.2); RDW Standard Deviation 57.8 fL (35.1-46.3); Red Blood Cell Count 3.73 M/mm3 (3.80-5.20); White Blood Cell Count 8.19 K/mm3 (4.00-11.30)
[2021-01-08 06:04] LABS: International Normalized Ratio 2.15; Prothrombin Time Results 22.2 Sec (9.7-11.5)
[2021-01-08 06:16] LABS: Anion Gap 6 mmol/L (6-16); Blood Urea Nitrogen 12 mg/dL (8-24); Bun/Creatinine Ratio 14.4 (12.0-20.0); CO2, Blood 23 mmol/L (21-32); Calcium, Blood 7.8 mg/dL (8.5-10.1); Chloride, Blood 110 mmol/L (98-108); Creatinine, Blood 0.83 mg/dL (0.40-1.00); Glomerular Filtration Rate >60 (60-); Glucose, Blood 132 mg/dL (70-99); Potassium, Blood 4.2 mmol/L (3.5-5.5); Sodium, Blood 139 mmol/L (136-145)
--- NOTE | 2021-01-08 16:30 | NUR ---
PRUNE JUICE OFFERRED TO THE PATIENT. SHE REFUSED.
--- NOTE | 2021-01-08 17:26 | NUR ---
PATIENT IS ALERT AND ORIENTED. SHE C/O RIGHT LABIA PAIN. C/O BACK/BUTTOCKS PAIN WHILE LAYING IN BED, REPOSITIONED IN BED WITH PILLOWS. C/O CONSTIPATION, GIVEN PRUNE JUICE. JOHNSON IS IN PLACE. NS @ 50 ML/HR. HER VISITED HER AT THE BEDSIDE DURING VISITING HOURS. WORKED WITH PT AND OT TODAY. WILL CONTINUE TO MONITOR.
[2021-01-08 21:12] LABS: Vancomycin, Trough 11.3 ug/mL (5.0-10.0)
--- NOTE | 2021-01-09 02:06 | NUR ---
PT UP TO A RECLINING CHAIR, PER HER REQUEST. SHE REPORTS SHE SLEEPS IN A RECLINER AT HOME.
[2021-01-09 05:47] LABS: International Normalized Ratio 1.99; Prothrombin Time Results 20.7 Sec (9.7-11.5)
--- NOTE | 2021-01-09 06:20 | NUR ---
SHIFT SUMMARY - NO ACUTE CHANGES THROUGHOUT THIS SHIFT. PT WAS UNABLE TO GET COMFORTABLE IN BED. PT REPORTED SHE SLEPT IN A RECLINER CHAIR AT HOME. WE PROVIDED A RECLINER CHAIR, AND PT WAS ABLE TO SLEEP FOR APPX 2 HOURS TONIGHT. JOHNSON IS DRAINING CLEAR YELLOW URINE. NORMAL SALINE INFUSING TO R HAND IV SITE WITHOUT COMPLICATIONS. PT HAS REMAINED ALERT AND ORIENTED THROUGHOUT THE NIGHT, AND HAS BEEN COOPERATIVE WITH CARE. CALL LIGHT WITHIN REACH. BED IN LOW POSITION. FLUIDS AT BEDSIDE.
[2021-01-09] MEDS ORDERED: ACET325 PO (14:27)
[2021-01-09] MEDS ORDERED: CEFD300 PO (14:28)
== END 2021-01-09 14:52 | disposition home or self-care (01) | DRG 871 ==
LOC: ER 10:41 → MEDS 15:35 → ERHOLD 15:35 → MEDS 18:11
PROVIDERS: Student in an Organized Health Care Education/Training Program; ADMIT Hospitalist
DX: A41.59 Other Gram-negative sepsis (principal); G92 Toxic encephalopathy; N39.0 Urinary tract infection, site not specified; N17.9 Acute kidney failure, unspecified; D68.59 Other primary thrombophilia; L03.315 Cellulitis of perineum; Z68.42 Body mass index [BMI] 45.0-49.9, adult; N76.1 Subacute and chronic vaginitis; E11.9 Type 2 diabetes mellitus without complications; I10 Essential (primary) hypertension; K80.20 Calculus of gallbladder without cholecystitis without obstruction; E87.5 Hyperkalemia; E66.01 Morbid (severe) obesity due to excess calories; G47.33 Obstructive sleep apnea (adult) (pediatric); B02.9 Zoster without complications; K57.30 Diverticulosis of large intestine without perforation or abscess without bleeding; G89.4 Chronic pain syndrome; Z96.652 Presence of left artificial knee joint; I89.0 Lymphedema, not elsewhere classified; R32 Unspecified urinary incontinence; Z96.641 Presence of right artificial hip joint; B96.4 Proteus (mirabilis) (morganii) as the cause of diseases classified elsewhere; Z99.89 Dependence on other enabling machines and devices; W18.39XA Other fall on same level, initial encounter; Y92.009 Unspecified place in unspecified non-institutional (private) residence as the place of occurrence of the external cause; Z90.89 Acquired absence of other organs; Z79.899 Other long term (current) drug therapy; Z79.01 Long term (current) use of anticoagulants; Z90.710 Acquired absence of both cervix and uterus; Z85.3 Personal history of malignant neoplasm of breast; Z90.722 Acquired absence of ovaries, bilateral; Z90.12 Acquired absence of left breast and nipple; Z86.711 Personal history of pulmonary embolism; Z99.81 Dependence on supplemental oxygen
CPT/HCPCS: 36415; 51702; 71045; 74177; 80048; 80053; 80202; 81001; 82947; 83605; 83735; 84100; 85025; 85610; 87040; 87077; 87086; 87186; 96365-59; 96366; 96375; 97110; 97116; 97162; 97167; 97530; 99285-25; A9270; J0696; J1170; J3370; J7030; J7050; P9046; Q9967

== ENCOUNTER 2021-01-18 00:19 | Day surgery (SDC) | payer OTHER ==
[~2021-01-18 00:19] MED LIST changes: +ACET325 PO; +CEFD300 PO; +Norco 10-325 T1 EACH PO; +WARF4 PO; +ZESTRIL40 M1 PO
== END 2021-01-18 22:59 | disposition home or self-care (01) ==
LOC: WOUND 00:19
DX: S31.40XD Unspecified open wound of vagina and vulva, subsequent encounter (principal); X58.XXXD Exposure to other specified factors, subsequent encounter; N76.4 Abscess of vulva; L02.214 Cutaneous abscess of groin; B00.9 Herpesviral infection, unspecified
CPT/HCPCS: A9270; G0463

== ENCOUNTER 2021-02-01 02:25 | Day surgery (SDC) | payer OTHER | END 2021-02-01 23:50 | disposition home or self-care (01) | LOC: WOUND 02:25 | DX: L02.214 Cutaneous abscess of groin (principal); B00.9 Herpesviral infection, unspecified; E03.9 Hypothyroidism, unspecified; E78.5 Hyperlipidemia, unspecified; E11.9 Type 2 diabetes mellitus without complications; E66.01 Morbid (severe) obesity due to excess calories; Z86.711 Personal history of pulmonary embolism; Z85.3 Personal history of malignant neoplasm of breast; Z68.42 Body mass index [BMI] 45.0-49.9, adult | CPT/HCPCS: A9270; G0463 ==

== ENCOUNTER 2021-07-15 07:45 | Day surgery (SDC) | payer OTHER ==
[~2021-07-15] VITALS: Ht 154.9 cm; Wt 118.4 kg
[~2021-07-15 07:45] MED LIST changes: +NYAMYC15 G1 TOP
[2021-07-15] MEDS ORDERED: Vitamin D1000 UNI1 PO (08:29)
[2021-07-15] MEDS ORDERED: ALEVAZOL56.7 G1 TOP (08:29)
--- NOTE | 2021-07-15 10:05 | NUR ---
PT TO RECOVERY ROOM POST PROCEDURE. PT DROWSY, BUT CONVERSING APPROPRIATELY; DENIES PAIN POST PROCEDURE. MONITOR SR 90'S, B/P 123/76, AFEBRILE, SPO2 96% RA. LOWER ABD SP CATH IN PLACE, NO SWELLING/HEMATOMA, GAUZE AND TEGADERM DRSG INTACT; CONNECTED TO DRAINAGE BAG DRAINING YELLOW URINE.
--- NOTE | 2021-07-15 12:15 | NUR ---
PT TOTAL ASSIT DRESSING AND TRANSFER TO W/C, SITE UNCHANGED; IV REMOVED-CANNULA INTACT.
--- NOTE | 2021-07-15 12:28 | NUR ---
PT AND RECEIVED DISCHARGE INSTRUCTIONS, MED LIST AND AFTER CARE INSTRUCTIONS; VERBALIZED GOOD UNDERSTANDING. PT LEFT FACILITY VIA W/C, CONDITION STABLE.
[2021-07-15] MEDS ORDERED: SPIRONOLACTONE25 MG PO (23:28)
[2021-07-15] MEDS ORDERED: CYCL10 PO (23:29)
[2021-07-15] MEDS ORDERED: EXEM25 PO (23:29)
[2021-07-15] MEDS ORDERED: JANTOVEN4 M2 PO (23:29)
[2021-07-15] MEDS ORDERED: SOLI5 (23:30)
[2021-07-15] MEDS ORDERED: HYDROCODONE-AC1 EAC7 PO (23:34)
== END 2021-07-15 12:28 | disposition home or self-care (01) ==
LOC: MHTC 07:45
DX: R32 Unspecified urinary incontinence (principal); S31.4 Open wound of vagina and vulva; X58.XXXS Exposure to other specified factors, sequela; I10 Essential (primary) hypertension; E78.5 Hyperlipidemia, unspecified; E11.40 Type 2 diabetes mellitus with diabetic neuropathy, unspecified; G47.33 Obstructive sleep apnea (adult) (pediatric); Z97.8 Presence of other specified devices; Z88.5 Allergy status to narcotic agent; Z79.01 Long term (current) use of anticoagulants; Z79.899 Other long term (current) drug therapy
CPT/HCPCS: 99152; 99153; C1729; C1769; C1894; J2250; J3010; J7030; J7040; Q9967

== ENCOUNTER 2021-07-15 22:14 | Inpatient (IN) | payer OTHER ==
[~2021-07-15] VITALS: Ht 162.6 cm; Wt 118.8 kg
[~2021-07-15 22:14] MED LIST changes: +ALEVAZOL56.7 G1 TOP; +Vitamin D1000 UNI1 PO
[2021-07-15 22:53] LABS: BASOPHILS ABSOLUTE AUTO 0.04 K/mm3 (0.00-0.23); BASOPHILS PERCENT AUTO 0 % (0-2); EOSINOPHILS ABSOLUTE AUTO 0.02 K/mm3 (0.00-0.68); EOSINOPHILS PERCENT AUTO 0 % (0-6); Hematocrit 35.3 % (33.0-51.0); Hemoglobin 10.9 g/dL (11.5-16.0); IMMATURE GRAN ABSOLUTE AUTO 0.06 K/mm3 (0.00-0.10); IMMATURE GRAN PERCENT AUTO 0 % (0-1); LYMPHOCYTES ABSOLUTE AUTO 3.38 K/mm3 (0.84-5.20); LYMPHOCYTES PERCENT AUTO 19 % (21-46); MONOCYTES ABSOLUTE AUTO 1.42 K/mm3 (0.16-1.47); MONOCYTES PERCENT AUTO 8 % (4-13); Mean Corpuscular HGB Conc 30.9 g/dL (31.5-36.5); Mean Corpuscular Volume 87 fL (80-100); Mean Platelet Volume 10.3 fL (9.1-12.4); NEUTROPHILS ABSOLUTE AUTO 12.69 K/mm3 (1.96-9.15); NEUTROPHILS PERCENT AUTO 72 % (41-73); Platelet Count 278 K/mm3 (150-400); RDW Coefficient Variation 16.5 % (11.7-14.2); RDW Standard Deviation 52.2 fL (35.1-46.3); Red Blood Cell Count 4.04 M/mm3 (3.80-5.20); White Blood Cell Count 17.61 K/mm3 (4.00-11.30)
[2021-07-15 23:13] LABS: Albumin, Blood 3.2 g/dL (3.4-5.0); Albumin/Globulin Ratio 0.7 (0.8-1.8); Bilirubin, Total 0.4 mg/dL (0.1-1.0); Bun/Creatinine Ratio 18.5 (12.0-20.0); Calcium, Blood 8.3 mg/dL (8.5-10.1); Creatinine, Blood 0.97 mg/dL (0.40-1.00); Globulin, Blood 4.3 g/dL (2.2-4.0); Potassium, Blood 5.1 mmol/L (3.5-5.5); Total Protein, Blood 7.5 g/dL (6.4-8.2)
[2021-07-15] MEDS ORDERED: SPIRONOLACTONE25 MG PO (23:28)
[2021-07-15] MEDS ORDERED: JANTOVEN4 M2 PO (23:29)
[2021-07-15] MEDS ORDERED: CYCL10 PO (23:29)
[2021-07-15] MEDS ORDERED: EXEM25 PO (23:29)
[2021-07-15 23:30] LABS: Source, Urine Foley catheter
[2021-07-15] MEDS ORDERED: SOLI5 (23:30)
[2021-07-15] MEDS ORDERED: HYDROCODONE-AC1 EAC7 PO (23:34)
[2021-07-15 23:36] LABS: Bilirubin, Urine Neg (Neg); Blood, Urine 5+ (Neg); Glucose Qualitative, Urine Neg (Neg); Ketones, Urine Neg (Neg); Leukocyte Esterase, Urine 3+ (Neg); Nitrite, Urine Neg (Neg); Protein, Urine 3+ (Neg); Urobilinogen, Urine NORM (Normal)
[2021-07-15 23:46] LABS: Appearance, Urine Hazy (Clear); Color, Urine Yellow (P-Yellow)
[2021-07-15 23:47] LABS: Amorphous Light (0-Heavy); Bacteria Many /hpf; Squamous Epithelial Cells Few /hpf (Few); White Blood Cells, Urine TNTC /hpf (0-5)
[2021-07-16 01:03] LABS: Adenovirus Not Detected (NOT DETECT); Bordetella pertussis Not Detected (NOT DETECT); Chlamydophila pneumoniae Not Detected (NOT DETECT); Coronavirus 229E Not Detected (NOT DETECT); Coronavirus HKU1 Not Detected (NOT DETECT); Coronavirus NL63 Not Detected (NOT DETECT); Coronavirus OC43 Not Detected (NOT DETECT); Human Metapneumovirus Not Detected (NOT DETECT); Human Rhinovirus/Enterovirus Not Detected (NOT DETECT); Influenza A/2009-H1 Not Detected (NOT DETECT); Influenza A/H1 Not Detected (NOT DETECT); Influenza A/H3 Not Detected (NOT DETECT); Influenza B Not Detected (NOT DETECT); Mycoplasma pneumoniae Not Detected (NOT DETECT); Parainfluenza Virus 1 Not Detected (NOT DETECT); Parainfluenza Virus 2 Not Detected (NOT DETECT); Parainfluenza Virus 3 Not Detected (NOT DETECT); Parainfluenza Virus 4 Not Detected (NOT DETECT); Respiratory Syncytial Virus Not Detected (NOT DETECT); SARS-Cov-2 (COVID-19), BioFire Not Detected (NOT DETECT)
[2021-07-16 03:12] LABS: Albumin/Globulin Ratio 0.7 (0.8-1.8); Bilirubin, Total 0.5 mg/dL (0.1-1.0); Bun/Creatinine Ratio 17.3 (12.0-20.0); Creatinine, Blood 0.99 mg/dL (0.40-1.00); Globulin, Blood 4.3 g/dL (2.2-4.0); Potassium, Blood 4.7 mmol/L (3.5-5.5); Total Protein, Blood 7.3 g/dL (6.4-8.2)
--- NOTE | 2021-07-16 05:03 | NUR ---
SHIFT SUMMARY 80 YR F ADMITTED ON 07/15/21 FOR WEAKNESS. SHE HAD A SUPRA PUBIC CATHETER PLACED THIS MORNING AND BY AFTERNOON SHE WAS FEELING WEAK AND HAD A LOW GRADE TEMP. SHE WAS DX W/ RIGHT LUNG PNEUMONIA. SHE HAS ISSUES WITH MOBILITY DUE TO OBESITY AND IS HEAVY ON THE CALL LIGHT. SHE DENIES PAIN AND THE AREA OF THE S P CATHETER INSERTION IS C,D,I. HER SHOULD BE BRINGING HER ALVARO LIST TODAY FOR VERIFICATION. PT STATES SHE HAS NO IDEA WHAT MEDS SHE TAKES OR AT WHAT FREQUENCY. SHE STATES THAT HER TAKES CARE OF ALL OF THAT.
[2021-07-16 05:38] LABS: International Normalized Ratio 1.19; Prothrombin Time Results 12.4 Sec (9.7-11.5)
--- NOTE | 2021-07-16 17:52 | NUR ---
SHIFT SUMMARY; PATIENT REMAINS IN BED THROUGHOUT DAY ONLY GETTING UP TO WORK WITH PT OT. PATIENT HAS MUCH ANXIETY NOTED THIS AM AND IS CRYING WHEN SPEAKING WITH HER SPOUSE ON PHONE. SHE HAS EXPRESSIVE APHASIA NOTED AND IS UNABLE TO CARRY ON PHONE CONVERSATION FOR VERY LONG SHE APPEARS VERY UPSET. AFTER PHONE CALL THIS RN CALMS PATIENT DOWN AND IS ABLE TO CALM HER FEARS. SHE HAD BEEN TOLD BY A FAMILY FRIEND THAT ONLY PEOPLE WITH COVID CAME TO THE MED FLOOR AND WERE SENT THERE TO . AFTER MUCH REASSURANCE PATIENT CALMS HER FEARS AND IS ABLE TO VERBALIZE UNDERSTANDING THAT SHE DOES NOT HAVE COVID AND IS NOT SENT HERE TO . PATIENTS VITAL SIGNS ARE WNL TODAY AND HER LUNGS ARE CLEAR IN ALL 4 QUADS. PER DURING HIS ROUNDING SHE MAY GO HOME TOMORROW. WILL REMAIN AVAILABLE FOR THIS PATIENT FOR ANY WANTS OR NEEDS THAT MAY COME UP PRIOR TO SHIFT CHANGE.
--- NOTE | 2021-07-17 03:08 | NUR ---
SHIFT SUMMARY PATIENT HAD NO ACUTE CHANGES OBSERVED. AXOX 3 AND 1-2 ASSIST TO BSC. TAKES MEDICATION WHOLE WITH WATER. PIV REMAINS INTACT. ADMINISTRATIVE ASSISTANT OFFICE MANAGER REPORTS NSR @ 80. CBG 133. SUPRA PUBIC CATH PATENT AND DRAINING TO GRAVITY. VSS/AFEBRILE. DENIES PAIN, SOB, AND N/V. IV ABXS INFUSED. CALL LIGHT IN REACH. BED IN LOWEST POSITION. WILL CONTINUE TO MONITOR UNTIL DAY SHIFT NURSE ASSUMES CARE.
[2021-07-17 05:07] LABS: Hematocrit 33.5 % (33.0-51.0); Hemoglobin 10.4 g/dL (11.5-16.0); Mean Corpuscular HGB 27.5 pg (26.0-34.0); Mean Corpuscular Volume 89 fL (80-100); Mean Platelet Volume 10.1 fL (9.1-12.4); Platelet Count 244 K/mm3 (150-400); RDW Coefficient Variation 16.6 % (11.7-14.2); RDW Standard Deviation 53.8 fL (35.1-46.3); Red Blood Cell Count 3.78 M/mm3 (3.80-5.20); White Blood Cell Count 18.11 K/mm3 (4.00-11.30)
[2021-07-17 05:21] LABS: International Normalized Ratio 1.15
[2021-07-17 05:27] LABS: BASOPHILS PERCENT MAN 0 % (0-2); EOSINOPHILS PERCENT MAN 0 % (0-6); LYMPHOCYTES ABSOLUTE MAN 5.07 K/mm3 (0.84-5.20); LYMPHOCYTES PERCENT MAN 28 % (21-46); MONOCYTES ABSOLUTE MAN 2.53 K/mm3 (0.16-1.47); MONOCYTES PERCENT MAN 14 % (4-13); SEG NEUTROPHILS PERCENT MAN 58 % (41-73); TOTAL CELLS COUNTED 100
[2021-07-17 05:31] LABS: Albumin, Blood 2.7 g/dL (3.4-5.0); Albumin/Globulin Ratio 0.6 (0.8-1.8); Bilirubin, Total 0.6 mg/dL (0.1-1.0); Calcium, Blood 8.3 mg/dL (8.5-10.1); Creatinine, Blood 0.94 mg/dL (0.40-1.00); Globulin, Blood 4.6 g/dL (2.2-4.0); Phosphorus, Blood 3.1 mg/dL (2.5-4.9); Potassium, Blood 4.5 mmol/L (3.5-5.5); Total Protein, Blood 7.3 g/dL (6.4-8.2)
--- NOTE | 2021-07-17 17:29 | NUR ---
PT HAS BEEN A/O T/O THE SHIFT, AMBULATING TO BR WITH GAIT BELT, WALKER AND SBA. UP AND IN THE KENNEDY AND ROOM WITH P.T., TOLERATED WELL. IV ZITHRO CHANGED TO PO THIS AFTERNOON. NO ACUTE CHANGES NOTED THIS SHIFT, WILL CONTINUE TO MONITOR AND REPORT TO ONCOMING RN
--- NOTE | 2021-07-18 03:50 | NUR ---
SHIFT SUMMARY PATIENT HAD NO ACUTE CHANGES OBSERVED. AXOX 3 AND ONE ASSIST TO BSC. PIV REMAINS INTACT. IV ABX INFUSED. TELE DAIRA REPORTS NSR 70. CBG 137. SUPRA PUBIC CATH PATENT AND DRAINING TO GRAVITY. VSS/AFEBRILE. DENIES PAIN, SOB, AND N/V. CALL LIGHT IN REACH. BED IN LOWEST POSITION. WILL CONTINUE TO MONITOR UNTIL DAY SHIFT NURSE ASSUMES CARE.
[2021-07-18 06:17] LABS: BASOPHILS ABSOLUTE AUTO 0.08 K/mm3 (0.00-0.23); BASOPHILS PERCENT AUTO 1 % (0-2); EOSINOPHILS ABSOLUTE AUTO 0.27 K/mm3 (0.00-0.68); EOSINOPHILS PERCENT AUTO 2 % (0-6); Hematocrit 35.1 % (33.0-51.0); Hemoglobin 10.7 g/dL (11.5-16.0); Mean Corpuscular HGB 27.2 pg (26.0-34.0); Mean Corpuscular HGB Conc 30.5 g/dL (31.5-36.5); Mean Corpuscular Volume 89 fL (80-100); Mean Platelet Volume 10.1 fL (9.1-12.4); Platelet Count 238 K/mm3 (150-400); RDW Coefficient Variation 16.7 % (11.7-14.2); RDW Standard Deviation 53.6 fL (35.1-46.3); Red Blood Cell Count 3.94 M/mm3 (3.80-5.20); White Blood Cell Count 15.56 K/mm3 (4.00-11.30)
[2021-07-18 06:31] LABS: International Normalized Ratio 1.24; Prothrombin Time Results 12.8 Sec (9.7-11.5)
[2021-07-18 06:34] LABS: IMMATURE GRAN ABSOLUTE AUTO 0.06 K/mm3 (0.00-0.10); IMMATURE GRAN PERCENT AUTO 0 % (0-1); LYMPHOCYTES ABSOLUTE AUTO 4.99 K/mm3 (0.84-5.20); LYMPHOCYTES PERCENT AUTO 32 % (21-46); MONOCYTES ABSOLUTE AUTO 1.37 K/mm3 (0.16-1.47); MONOCYTES PERCENT AUTO 9 % (4-13); NEUTROPHILS ABSOLUTE AUTO 8.79 K/mm3 (1.96-9.15); NEUTROPHILS PERCENT AUTO 57 % (41-73)
[2021-07-18 06:38] LABS: Alanine Aminotransfer (ALT/SGP 14 U/L (12-78); Albumin, Blood 2.8 g/dL (3.4-5.0); Albumin/Globulin Ratio 0.6 (0.8-1.8); Alk Phos 38 U/L (50-136); Anion Gap 7 mmol/L (6-16); Aspartate Aminotrans (AST/SGOT 14 U/L (12-37); Bilirubin, Total 0.5 mg/dL (0.1-1.0); Blood Urea Nitrogen 14 mg/dL (8-24); Bun/Creatinine Ratio 16.4 (12.0-20.0); CO2, Blood 22 mmol/L (21-32); Calcium, Blood 8.4 mg/dL (8.5-10.1); Chloride, Blood 107 mmol/L (98-108); Creatinine, Blood 0.86 mg/dL (0.40-1.00); Globulin, Blood 4.6 g/dL (2.2-4.0); Glomerular Filtration Rate >60 (60-); Glucose, Blood 123 mg/dL (70-99); Potassium, Blood 4.2 mmol/L (3.5-5.5); Sodium, Blood 136 mmol/L (136-145); Total Protein, Blood 7.4 g/dL (6.4-8.2)
--- NOTE | 2021-07-18 15:20 | NUR ---
SHIFT SUMMARY: NO ACUTE EVENTS. TELE IS SR 80'S WITH OCC PVC'S AND INTERMITTENT ATRIAL ESCAPE BEATS. ON ROOM AIR, BECOMES ALMONTE. INR 1.24 TODAY, WILL RE-START COUMADIN TONIGHT. OOB WITH FWW AND 1 PERSON ASSIST. WILL LIKELY D/C HOME TOMORROW.
--- NOTE | 2021-07-18 18:32 | NUR ---
PATIENT BROKE UPPER DENTURES "TAKING A BITE ON THE SALAD.THIS IS THE SECOND TIME I'VE BROKEN THESE." PLATE APPEARS VERY THIN. CHARGE NURSES, VIKTORIYA JOHNSON ANITA AND COLE SHOWN BROKEN PLATE. PLACED IN LABELLED BAG AND BROUGHT DOWN TO SOUTH ENTRANCE AND GIVEN TO NATIONAL GUARD AND ENTRANCE SCREENER. AWARE TO LOOK FOR 80'S YEAR OLD GENTLEMAN COMING IN TO CLINICAL LAB ASSISTANT DENTURES.
--- NOTE | 2021-07-19 03:37 | NUR ---
SHIFT SUMMARY PATIENT HAD NO ACUTE CHANGES OBSERVED. AXOX 3 AND ONE ASSIST TO BSC. ON ROOM AIR. CBG 113. PIV REMAINS INTACT. IV ABX INFUSED. VIDEO GAME ENGINEER REPORTS NSR 70. DENIES PAIN, SOB, AND N/V. VSS/AFEBRILE. SUPRA PUBIC CATH INTACT AND DRAINING TO GRAVITY. CALL LIGHT IN REACH. BED IN LOWEST POSITION. WILL CONTINUE TO MONITOR UNTIL DAY SHIFT NURSE ASSUMES CARE.
--- NOTE | 2021-07-19 04:45 | NUR ---
TRANSPORTATION AID REPORTS FIVE BEAT RUN OF V-TACH AND BACK TO NSR. PATIENT NSR 71 TO START SHIFT.
[2021-07-19 05:21] LABS: BASOPHILS ABSOLUTE AUTO 0.08 K/mm3 (0.00-0.23); BASOPHILS PERCENT AUTO 1 % (0-2); EOSINOPHILS ABSOLUTE AUTO 0.33 K/mm3 (0.00-0.68); EOSINOPHILS PERCENT AUTO 2 % (0-6); Hematocrit 35.9 % (33.0-51.0); Hemoglobin 11.5 g/dL (11.5-16.0); IMMATURE GRAN ABSOLUTE AUTO 0.11 K/mm3 (0.00-0.10); IMMATURE GRAN PERCENT AUTO 1 % (0-1); LYMPHOCYTES PERCENT AUTO 32 % (21-46); MONOCYTES ABSOLUTE AUTO 1.32 K/mm3 (0.16-1.47); MONOCYTES PERCENT AUTO 10 % (4-13); Mean Corpuscular HGB 27.3 pg (26.0-34.0); Mean Corpuscular Volume 85 fL (80-100); Mean Platelet Volume 10.3 fL (9.1-12.4); NEUTROPHILS ABSOLUTE AUTO 7.47 K/mm3 (1.96-9.15); NEUTROPHILS PERCENT AUTO 55 % (41-73); Platelet Count 230 K/mm3 (150-400); RDW Coefficient Variation 16.3 % (11.7-14.2); Red Blood Cell Count 4.21 M/mm3 (3.80-5.20); White Blood Cell Count 13.61 K/mm3 (4.00-11.30)
[2021-07-19 05:30] LABS: International Normalized Ratio 1.41; Prothrombin Time Results 14.5 Sec (9.7-11.5)
--- NOTE | 2021-07-19 10:28 | NUR ---
@ 1015, SPOUSE CALLED TO CHECK ON DISCHARGE STATUS. INFORMED HIM NO D/C ORDERS CURRENTLY.
--- NOTE | 2021-07-19 14:02 | NUR ---
DISCHARGE INSTRUCTIONS DISCUSSED WITH PATIENT AND COPY PROVIDED. VERBALIZED UNDERSTANDING. DISCHARGE HOME [facility] WHEELCHAIR PER PERSONAL VEHICLE WITH SPOUSE. AAO X 4. NO NEEDS VOICED AT DISCHARGE.
--- NOTE | 2021-07-19 14:03 | NUR ---
@ 1342, L UPPER ARM IV D/C'D WITH JELCO INTACT AND PRESSURE DRESSING APPLIED. TELEMETRY REMOVED PER GREEN CHAIN MARKER. GREEN CHAIN MARKER ASSISTING PATIENT TO DRESS. AWAITING DISCHARGE PAPERWORK.
--- NOTE | 2021-07-19 16:21 | NUR ---
Per Dr. Quiroz discharge appropriate. Patient does not oppose discharge. Patient discharged SNF: [facility]. Date of discharge: 07/19/2021 Date of admission: 07/16/2021 Provisional diagnosis at time of admission: Cellulitis of perineum Final Diagnosis at time of discharge: Cellulitis of perineum Location: Patient is discharged to residence: [address] [place] [address] Transportation provided by: Family/spouse Shaan [phone] DME Ordered: None needed/patient has a wheelchair/walker/cane Follow-ups needed: [facility] SERGO will contact [facility] to schedule hospital follow-up with PCP Dr. Kelli Lee Confirmed numbers: Patient: [phone] Spouse Shaan: [phone] Provider/PCP: Dr. Kelli Lee MD When: WITHIN 1 WEEK Specialty: N/A When: N/A Comment: No barriers to discharge. Patient has a strong support network. Patient's assists with ADL's. Patient has a daughter Edita Johnson whom resides in [place] and assists when needed. Patient's neighbor Evi Marte assists when needed and will take care of legal affairs in the event of an emergency.
== END 2021-07-19 14:31 | disposition home or self-care (01) | DRG 872 ==
LOC: ER 22:14 → MEDS 07-16 00:10
PROVIDERS: Hospitalist; Student in an Organized Health Care Education/Training Program; ADMIT Internal Medicine
DX: A41.51 Sepsis due to Escherichia coli [E. coli] (principal); L03.315 Cellulitis of perineum; D68.59 Other primary thrombophilia; N39.0 Urinary tract infection, site not specified; Z68.43 Body mass index [BMI] 50.0-59.9, adult; R65.20 Severe sepsis without septic shock; I10 Essential (primary) hypertension; R32 Unspecified urinary incontinence; E03.9 Hypothyroidism, unspecified; Z20.822 Contact with and (suspected) exposure to COVID-19; Z86.711 Personal history of pulmonary embolism; I89.0 Lymphedema, not elsewhere classified; M19.90 Unspecified osteoarthritis, unspecified site; E78.5 Hyperlipidemia, unspecified; Z85.3 Personal history of malignant neoplasm of breast; Z90.710 Acquired absence of both cervix and uterus; Z90.12 Acquired absence of left breast and nipple; Z98.890 Other specified postprocedural states; Z90.722 Acquired absence of ovaries, bilateral; Z66 Do not resuscitate; Z88.5 Allergy status to narcotic agent; Z88.8 Allergy status to other drugs, medicaments and biological substances; G47.33 Obstructive sleep apnea (adult) (pediatric); E66.01 Morbid (severe) obesity due to excess calories; Z79.01 Long term (current) use of anticoagulants
CPT/HCPCS: 0202U; 36415; 71045; 80053; 81001; 82947; 83605; 83735; 83880; 84100; 84145; 85025; 85610; 85651; 86140; 87040; 87077; 87086; 87186; 93005; 93010; 96365; 96375; 97110; 97116-CQ; 97162; 97166; 97530; 97530-CQ; 99285-25; A9270; J0456; J0696; J7030; J7050

== ENCOUNTER 2022-05-06 16:43 | Inpatient (IN) | payer OTHER ==
[~2022-05-06] VITALS: Ht 154.9 cm; Wt 127.0 kg
[~2022-05-06 16:43] MED LIST changes: +ALLOPURINOL100 M1 PO; +HYDROCODONE-AC1 EAC7 PO; +JANTOVEN4 M2 PO; +SOLI5; +SPIRONOLACTONE25 MG PO
[2022-05-06 17:44] LABS: BASOPHILS ABSOLUTE AUTO 0.04 K/mm3 (0.00-0.23); BASOPHILS PERCENT AUTO 0 % (0-2); EOSINOPHILS ABSOLUTE AUTO 0.02 K/mm3 (0.00-0.68); EOSINOPHILS PERCENT AUTO 0 % (0-6); Hematocrit 36.2 % (33.0-51.0); Hemoglobin 11.1 g/dL (11.5-16.0); IMMATURE GRAN ABSOLUTE AUTO 0.09 K/mm3 (0.00-0.10); IMMATURE GRAN PERCENT AUTO 1 % (0-1); LYMPHOCYTES PERCENT AUTO 19 % (21-46); MONOCYTES ABSOLUTE AUTO 1.21 K/mm3 (0.16-1.47); MONOCYTES PERCENT AUTO 11 % (4-13); Mean Corpuscular HGB 25.5 pg (26.0-34.0); Mean Corpuscular HGB Conc 30.7 g/dL (31.5-36.5); Mean Corpuscular Volume 83 fL (80-100); NEUTROPHILS ABSOLUTE AUTO 7.79 K/mm3 (1.96-9.15); NEUTROPHILS PERCENT AUTO 69 % (41-73); Platelet Count 232 K/mm3 (150-400); RDW Coefficient Variation 18.9 % (11.7-14.2); RDW Standard Deviation 57.5 fL (35.1-46.3); Red Blood Cell Count 4.35 M/mm3 (3.80-5.20); White Blood Cell Count 11.35 K/mm3 (4.00-11.30)
[2022-05-06] MEDS ORDERED: ACYCLOVIR400 MG PO (18:00)
[2022-05-06] MEDS ORDERED: HYDROCODONE-AC1 EAC7 PO (18:00)
[2022-05-06] MEDS ORDERED: Atarax10 MG PO (18:00)
[2022-05-06] MEDS ORDERED: LIDO5TO TOP (18:01)
[2022-05-06] MEDS ORDERED: FUROSEMIDE20 MG PO (18:01)
[2022-05-06 18:02] LABS: Albumin, Blood 3.1 g/dL (3.4-5.0); Albumin/Globulin Ratio 0.7 (0.8-1.8); Bilirubin, Total 0.4 mg/dL (0.1-1.0); Bun/Creatinine Ratio 14.9 (12.0-20.0); Calcium, Blood 8.2 mg/dL (8.5-10.1); Creatinine, Blood 0.87 mg/dL (0.40-1.00); Globulin, Blood 4.6 g/dL (2.2-4.0); Total Protein, Blood 7.7 g/dL (6.4-8.2)
[2022-05-06 18:22] LABS: Influenza B, PCR NEGATIVE (NEGATIVE); Resp Syncytial Virus, PCR NEGATIVE (NEGATIVE); SARS-Cov-2 (COVID-19) PCR, MMC NEGATIVE (NEGATIVE)
[2022-05-06 18:23] LABS: Influenza A, PCR POSITIVE (NEGATIVE)
[2022-05-06 22:26] LABS: International Normalized Ratio 1.46
--- NOTE | 2022-05-06 23:44 | NUR ---
ADMIT NOTE HANDOFF RECEIVED FROM SQUARE DANCE CALLEREMA CARRILLO. PT ARRIVED TO FLOOR VIA GURJORGE LUIS. PERSONAL POSSESSIONS WITH PT. TELEMETRY IS IN PLACE. PT ORIENTED TO UNIT. CALL BUTTON WITHIN REACH. BED ALARM IS ACTIVE. SUPRAPUBIC CATHETER IS PATENT AND DRAINING. 2 LPM O2 VIA NC. O2 SAT IS 95%. DROPLET PRECAUTIONS IN PLACE FOR INFLUENZA A
--- NOTE | 2022-05-07 04:41 | NUR ---
SHIFT SUMMARY NOC ADMIT FROM ED FOR INFLUENZA A. PT IS A/OX2. PT HAS HAD COUGHING FITS. ROBITUSSIN AND TESSALON ORDERS WERE OBTAINED. HYDRALAZINE 10MG IV PRN WAS OBTAINED FOR ELEVATED BP. PT IS ON 2L/NC AND MAINTAINING SPON >93%. PT HAS BEEN CONFUSED DURING SHIFT. PT HAS HX OF CHRONIC UTIS AND HAS A SUPRAPUBIC CATHETER DRAINING CLEAR YELLOW URINE TO GRAVITY. PT IS CURRENTLY AWAKE SITTING UP IN BED, BED ALARM IS ARMED, BED RAILS UP, BED IN LOWEST POSITION, AND CALL LIGHT WITHIN REACH. PT'S WILL BE IN LATER THIS AM. HE WILL ASSIST WITH RX RECONCILIATION AND WILL BRING PT'S ACTUAL GLASSES.
[2022-05-07 05:48] LABS: BASOPHILS ABSOLUTE AUTO 0.05 K/mm3 (0.00-0.23); BASOPHILS PERCENT AUTO 1 % (0-2); EOSINOPHILS PERCENT AUTO 0 % (0-6); Hematocrit 36.2 % (33.0-51.0); Hemoglobin 10.9 g/dL (11.5-16.0); IMMATURE GRAN ABSOLUTE AUTO 0.06 K/mm3 (0.00-0.10); IMMATURE GRAN PERCENT AUTO 1 % (0-1); LYMPHOCYTES ABSOLUTE AUTO 1.87 K/mm3 (0.84-5.20); LYMPHOCYTES PERCENT AUTO 21 % (21-46); MONOCYTES ABSOLUTE AUTO 0.28 K/mm3 (0.16-1.47); MONOCYTES PERCENT AUTO 3 % (4-13); Mean Corpuscular HGB 25.1 pg (26.0-34.0); Mean Corpuscular HGB Conc 30.1 g/dL (31.5-36.5); Mean Corpuscular Volume 83 fL (80-100); NEUTROPHILS PERCENT AUTO 75 % (41-73); Platelet Count 232 K/mm3 (150-400); RDW Coefficient Variation 18.7 % (11.7-14.2); RDW Standard Deviation 57.1 fL (35.1-46.3); Red Blood Cell Count 4.34 M/mm3 (3.80-5.20); White Blood Cell Count 8.96 K/mm3 (4.00-11.30)
[2022-05-07 06:12] LABS: Albumin/Globulin Ratio 0.7 (0.8-1.8); Bilirubin, Total 0.3 mg/dL (0.1-1.0); Bun/Creatinine Ratio 16.6 (12.0-20.0); Creatinine, Blood 0.9 mg/dL (0.40-1.00); Globulin, Blood 4.4 g/dL (2.2-4.0); Potassium, Blood 5.3 mmol/L (3.5-5.5); Total Protein, Blood 7.4 g/dL (6.4-8.2)
[2022-05-07 10:37] LABS: International Normalized Ratio 1.46
--- NOTE | 2022-05-07 18:40 | NUR ---
SHIFT SUMMARY PT IS A&O X 2. CONFUSED AND FORGETFUL AT TIMES. RE-ORIENTS WELL. PARTICIPATED WITH PHYS THERAPY THIS MORNING. IS WEAK & UNABLE TO GET OUT OF BED. IS IN ISO FOR INFLUENZA A. IS ON 2 L's O2 SATS >90%. WILL DE-SAT WITHOUT O2 ESPECIALLY WHEN SHE COUGHS. HAS RESTED QUIETLY & COMFORTABLY MOST OF THE SHIFT. RESP EVEN & UNLABORED. APPETITE IS MARGINAL THOUGH SHE REPORTS SHE'S "TRYING TO EAT TO SUSTAIN HER STRENTGH". SUPRA-PUBIC CATH IS INATCT & PATENT. SKIN AROUND INSERTION SITE IS RED. NEW CLEAN SOFT FLUFF 4X4 PLACED AT INSERTION SITE. URINE IS YELLOW. SUSPECT SHE WILL NEED PLACEMENT UPON HOSPITAL DC.
--- NOTE | 2022-05-08 04:14 | NUR ---
Summary: Patient very weak. 2 person total care. Patient turned q2 hours in bed throughout night. On 2L NC. Patient Aox2. Granddaughter called for update but she was not listed in chart. Asked patient if we could update her granddaughter she stated she would call them in the morning. Suprapublic catheter draining to gravity. Not a lot of output overnight. Patient has a lot of excoriation in her folds. Patient has a productive cough with thick yellow mucus. Cough meds given PRN.
[2022-05-08 05:49] LABS: BASOPHILS ABSOLUTE AUTO 0.02 K/mm3 (0.00-0.23); BASOPHILS PERCENT AUTO 0 % (0-2); EOSINOPHILS PERCENT AUTO 0 % (0-6); Hematocrit 35.1 % (33.0-51.0); Hemoglobin 10.5 g/dL (11.5-16.0); IMMATURE GRAN ABSOLUTE AUTO 0.05 K/mm3 (0.00-0.10); IMMATURE GRAN PERCENT AUTO 0 % (0-1); LYMPHOCYTES ABSOLUTE AUTO 2.31 K/mm3 (0.84-5.20); LYMPHOCYTES PERCENT AUTO 19 % (21-46); MONOCYTES ABSOLUTE AUTO 0.75 K/mm3 (0.16-1.47); MONOCYTES PERCENT AUTO 6 % (4-13); Mean Corpuscular HGB 25.4 pg (26.0-34.0); Mean Corpuscular HGB Conc 29.9 g/dL (31.5-36.5); Mean Corpuscular Volume 85 fL (80-100); Mean Platelet Volume 9.9 fL (9.1-12.4); NEUTROPHILS ABSOLUTE AUTO 9.17 K/mm3 (1.96-9.15); NEUTROPHILS PERCENT AUTO 75 % (41-73); Platelet Count 219 K/mm3 (150-400); RDW Coefficient Variation 18.6 % (11.7-14.2); Red Blood Cell Count 4.14 M/mm3 (3.80-5.20)
[2022-05-08 05:56] LABS: International Normalized Ratio 1.45; Prothrombin Time Results 14.9 Sec (9.7-11.5)
[2022-05-08 06:10] LABS: Albumin, Blood 2.7 g/dL (3.4-5.0); Albumin/Globulin Ratio 0.6 (0.8-1.8); Bilirubin, Total 0.3 mg/dL (0.1-1.0); Bun/Creatinine Ratio 27.5 (12.0-20.0); Calcium, Blood 7.7 mg/dL (8.5-10.1); Creatinine, Blood 1.02 mg/dL (0.40-1.00); Globulin, Blood 4.3 g/dL (2.2-4.0); Potassium, Blood 5.8 mmol/L (3.5-5.5)
--- NOTE | 2022-05-08 16:45 | NUR ---
MEPIPLEXES TURNED PT TO CLEAN HER AND TO REPOSITION HER. THERE ARE PURPLE AREAS ON EACH OF HER ISHIAL TUBEROSITY BONES & ON HER L HIP. MEPIPLEXES PLACED ON ALL 3 AREAS.
--- NOTE | 2022-05-08 18:12 | NUR ---
SHIFT SUMMARY PT REMAINS WEAK, REQUIRING MAX ASSIST X 3 FOR TURNING IN BED. IS A&O X 2 TO 3. IS FORGETFUL AND CAN BE CONFUSED AT TIMES. IS ON 2 L's NC, SATS >90%, CAN DESAT IF NC PRONGS ARE NOT IN HER NOSE. SHE HAS AUDIBLE WET, CRACKLING SOUNDS WITH BREATHING WITHOUT USING STETHOSCOPE. VIA AUSCULTATION HAS CRACKLES BILAT LUNG HU. STRONG COUGH. APPETITE HAS BEEN A LITTLE BETTER TODAY. MEPIPLEXES ON HER BOTTOM AND HER L HIP REMAIN IN PLACE. IN TO SEE HER TODAY. SUSPECT SHE WILL NEED SNF/REHAB UPON HOSPITAL DC.
--- NOTE | 2022-05-09 04:39 | NUR ---
Summary: Patient very weak. 2 person total care. Patient turned q2 hours in bed throughout night. On 2L NC stating low 90s. Patient Aox2. Suprapublic catheter draining to gravity. Not a lot of output overnight. Patient has excoriation in her folds. Patient has a productive cough with thick yellow mucus. Audible wet crackly lung sounds heard while standing bedside. Encouraged patient to cough up sputum as she could. Notified charge nurse patient would benefit from bariatric bed or air matress when one is available.
[2022-05-09 06:12] LABS: BASOPHILS ABSOLUTE AUTO 0.02 K/mm3 (0.00-0.23); BASOPHILS PERCENT AUTO 0 % (0-2); EOSINOPHILS PERCENT AUTO 0 % (0-6); Hematocrit 35.9 % (33.0-51.0); Hemoglobin 10.6 g/dL (11.5-16.0); IMMATURE GRAN ABSOLUTE AUTO 0.08 K/mm3 (0.00-0.10); IMMATURE GRAN PERCENT AUTO 1 % (0-1); LYMPHOCYTES ABSOLUTE AUTO 1.85 K/mm3 (0.84-5.20); LYMPHOCYTES PERCENT AUTO 12 % (21-46); MONOCYTES ABSOLUTE AUTO 1.11 K/mm3 (0.16-1.47); MONOCYTES PERCENT AUTO 7 % (4-13); Mean Corpuscular HGB 25.1 pg (26.0-34.0); Mean Corpuscular HGB Conc 29.5 g/dL (31.5-36.5); Mean Corpuscular Volume 85 fL (80-100); Mean Platelet Volume 9.9 fL (9.1-12.4); NEUTROPHILS ABSOLUTE AUTO 12.68 K/mm3 (1.96-9.15); NEUTROPHILS PERCENT AUTO 81 % (41-73); NRBC ABSOLUTE 0.02 K/mm3 (0.00-0.02); NRBC Auto 0.1 /100 WBC (0.0-0.2); Platelet Count 232 K/mm3 (150-400); RDW Coefficient Variation 18.6 % (11.7-14.2); RDW Standard Deviation 58.8 fL (35.1-46.3); Red Blood Cell Count 4.22 M/mm3 (3.80-5.20); White Blood Cell Count 15.74 K/mm3 (4.00-11.30)
[2022-05-09 06:13] LABS: International Normalized Ratio 1.69; Prothrombin Time Results 17.1 Sec (9.7-11.5)
[2022-05-09 06:16] LABS: Bun/Creatinine Ratio 39.7 (12.0-20.0); Calcium, Blood 7.9 mg/dL (8.5-10.1); Creatinine, Blood 0.93 mg/dL (0.40-1.00); Potassium, Blood 5.7 mmol/L (3.5-5.5)
--- NOTE | 2022-05-09 19:04 | NUR ---
SHIFT SUMMARY ROSSY REMAINED ON 2LPM VIA NC THIS SHIFT. LUNGS WHEEZY AND COARSE. PT REMAINED SATING ABOVE 92% WITH PRN RESP TREATMENTS. SHE IS A & O X2, CONFUSED AND REQUIRES FREQUENT REORIENTATION. REMAINS PLEASANT WITH CARE. TWO PERSON BED TURN, IN ATTENDS, WITH SUPRAPUBIC CATHETER. WET COUGH THAT PRODUCES THICK WHITE SPUTUM. DOES NOT USE CALL LIGHT APPROPRIATELY. WILL CALL OUT FOR HELP. ISO PRECAUTIONS FOR FLU. IV IN LEFT FOREARM. VISITED TODAY.
--- NOTE | 2022-05-10 05:10 | NUR ---
Summary: Patient weak. 2 person total care. Patient turned q2 hours in bed throughout night. Patient did help staff turn her this evening. On 2L NC stating low 90s. Patient Aox2 but easily redirectable and pleasant with staff. Suprapublic catheter draining to gravity. Patient has excoriation in her folds. Patient has a productive cough with thick yellow/white mucus. Audible wheezing and wet crackly lung sounds heard while standing bedside. PRN breathing treatments given by RT team. Encouraged patient to cough up sputum as she could. Patient had two bowel movements.
[2022-05-10 05:13] LABS: BASOPHILS ABSOLUTE AUTO 0.03 K/mm3 (0.00-0.23); BASOPHILS PERCENT AUTO 0 % (0-2); EOSINOPHILS PERCENT AUTO 0 % (0-6); Hematocrit 36.1 % (33.0-51.0); Hemoglobin 10.9 g/dL (11.5-16.0); IMMATURE GRAN ABSOLUTE AUTO 0.12 K/mm3 (0.00-0.10); IMMATURE GRAN PERCENT AUTO 1 % (0-1); LYMPHOCYTES ABSOLUTE AUTO 1.58 K/mm3 (0.84-5.20); LYMPHOCYTES PERCENT AUTO 11 % (21-46); MONOCYTES ABSOLUTE AUTO 0.92 K/mm3 (0.16-1.47); MONOCYTES PERCENT AUTO 7 % (4-13); Mean Corpuscular HGB 24.9 pg (26.0-34.0); Mean Corpuscular HGB Conc 30.2 g/dL (31.5-36.5); Mean Corpuscular Volume 83 fL (80-100); Mean Platelet Volume 9.9 fL (9.1-12.4); NEUTROPHILS ABSOLUTE AUTO 11.15 K/mm3 (1.96-9.15); NEUTROPHILS PERCENT AUTO 81 % (41-73); NRBC ABSOLUTE 0.03 K/mm3 (0.00-0.02); NRBC Auto 0.2 /100 WBC (0.0-0.2); Platelet Count 231 K/mm3 (150-400); RDW Coefficient Variation 18.4 % (11.7-14.2); RDW Standard Deviation 55.5 fL (35.1-46.3); Red Blood Cell Count 4.37 M/mm3 (3.80-5.20)
[2022-05-10 05:28] LABS: International Normalized Ratio 1.93; Prothrombin Time Results 19.4 Sec (9.7-11.5)
[2022-05-10 05:35] LABS: Bun/Creatinine Ratio 40.8 (12.0-20.0); Calcium, Blood 8.1 mg/dL (8.5-10.1); Creatinine, Blood 0.98 mg/dL (0.40-1.00); Potassium, Blood 5.4 mmol/L (3.5-5.5)
--- NOTE | 2022-05-10 14:30 | NUR ---
Spiritual care visit conducted. Pt is confused about time and place but is still very capable of quoting Bible verses and talking about God and her jew ([facility] [employer]). Pt speaks about the sickness and struggle as an attack of the enemy. I provide therapeutic listening, pastoral marriage counselor and prayer. Pt responds well and also prays for me. She states that she is uplifted by the visit asks me to return as often as possible.
--- NOTE | 2022-05-10 18:16 | NUR ---
SHIFT SUMMARY: PATIENT A&OX2. PLEASANT AND COOPERATIVE WITH CARE. USES CALL LIGHT APPROPRIATELY. PATIENT ON TELE, SR AT 78 BPM PER SLOT SUPERVISORISAAC DUARTE. DENIES CP/CHEST DISCOMFORT. LUNGS HAS CRACKLES AND EXP WHEEZES T/O TO AUSCULTATION. PATIENT ON O2 2L VIA NC, WITH SPO2 OF ABOVE 92%. SUPRAPUBIC CATH PATENT DRAINING TO GRAVITY WITH YELLOW URINE. IV TO R AC SALINE LOCKED. PATIENT WAS ABLE TO PARTICIPATE WITH PT MOBILITY. PATIENT TOLERATED SITTING UP IN CHAIR FOR ABOUT 2 HRS AND TRANSFERRED BACK TO BED WITH 1 ASSIST, GAITBELT AND FWW. RECEIVED BS COVERAGE PER EMAR. VITAL SIGNS REVIEWED. PATIENT ON DROPLET ISOLATION FOR INFLUENZA. BED IN LOWEST POSITION, LOCKED AND BED ALARM ON FOR SAFETY. CALL LIGHT IN REACH.
--- NOTE | 2022-05-11 05:35 | NUR ---
SHIFT SUMMARY 81 YR F ADMITTED ON 05/07/22 FOR INFLUENZA A. DNR. NO ACUTE CHANGES THIS SHIFT. PT HAS SLEPT FOR MOST OF THIS SHIFT. SHE STATED THAT SHE WAS UP IN THE CHAIR TODAY AND SHE FELT GOOD ABOUT THAT. LUNGS SOUNDS ARE STILL VERY CRACKLY. SHE WAS ABLE TO TAKE HER PILLS EASILY WITH WATER. SHE IS PLEASANT AND COOPERATIVE WITH CARE AND CALLS APPROPRIATELY.
[2022-05-11 06:06] LABS: BASOPHILS ABSOLUTE AUTO 0.02 K/mm3 (0.00-0.23); BASOPHILS PERCENT AUTO 0 % (0-2); EOSINOPHILS PERCENT AUTO 0 % (0-6); Hematocrit 37.7 % (33.0-51.0); Hemoglobin 11.6 g/dL (11.5-16.0); IMMATURE GRAN ABSOLUTE AUTO 0.15 K/mm3 (0.00-0.10); IMMATURE GRAN PERCENT AUTO 1 % (0-1); LYMPHOCYTES ABSOLUTE AUTO 1.88 K/mm3 (0.84-5.20); LYMPHOCYTES PERCENT AUTO 15 % (21-46); MONOCYTES ABSOLUTE AUTO 1.07 K/mm3 (0.16-1.47); MONOCYTES PERCENT AUTO 9 % (4-13); Mean Corpuscular HGB 25.3 pg (26.0-34.0); Mean Corpuscular HGB Conc 30.8 g/dL (31.5-36.5); Mean Corpuscular Volume 82 fL (80-100); Mean Platelet Volume 9.8 fL (9.1-12.4); NEUTROPHILS ABSOLUTE AUTO 9.16 K/mm3 (1.96-9.15); NEUTROPHILS PERCENT AUTO 75 % (41-73); Platelet Count 238 K/mm3 (150-400); RDW Coefficient Variation 18.2 % (11.7-14.2); RDW Standard Deviation 55.2 fL (35.1-46.3); Red Blood Cell Count 4.58 M/mm3 (3.80-5.20); White Blood Cell Count 12.28 K/mm3 (4.00-11.30)
[2022-05-11 06:20] LABS: International Normalized Ratio 2.4; Prothrombin Time Results 23.8 Sec (9.7-11.5)
[2022-05-11 06:31] LABS: Bun/Creatinine Ratio 46.5 (12.0-20.0); Calcium, Blood 8.3 mg/dL (8.5-10.1); Creatinine, Blood 0.86 mg/dL (0.40-1.00)
--- NOTE | 2022-05-11 13:08 | NUR ---
Spiritual care visit conducted. Pt is sitting up in bed and alert. Pt tells me about her life growing up, her family unit complications and the deaths of her first and two children. She also talks about how important the Bible is to her in helping know how to live and help others. Pt is very talkative but is positive and hopeful. I reinforce her upbeat outlook and attitude, and provide therapeutic listening and prayer. Pt responds well and states that she is very inspired by the visit this day.
--- NOTE | 2022-05-11 16:03 | NUR ---
SHIFT SUMMARY: NO NEW CHANGES THIS SHIFT. PATIENT STILL ON DROPLET ISOLATION FOR INFLUENZA. MENTATION SEEMS IMPROVING. A&OX3, SOME SLIGHT CONFUSION, BUT OTHERWISE PATIENT ANSWER TO ASSESSMENT QUESTIONS APPROPRIATELY. PATIENT ON O2 2L VIA NC WITH SPO2 OF 95% BEGINNING OF SHIFT. ABLE TO TITRATE O2 DOWN TO 1 1/2L VIA NC WITH SPO2 OF 92-93%. LUNGS COARSE AND WHEEZES T/O TO AUSCULTAION. PATIENT HAS BEEN HAVING PRODUCTIVE COUGH WITH THICK YELLOW SPUTUM. PATIENT REQUEST COUGH MEDICINE. RECEIVED X1 OF ROBITUSSIN FOR COUGH. PATIENT REPORTS OF GREAT RELIEF. SPOUSE HAS BEEN VISITING MULTIPLE TIMES T/O THE DAY. SPOUSE HAS BEEN GIVEN UPDATES REGARDING PATIENT CONDITION AND STATED UNDERSTANDING AND NO FURTHER QUESTIONS AT THIS TIME. PATIENT RECEIVED BS COVERAGE PER EMAR. PATIENT DECLINE TO SIT-UP IN CHAIR THIS SHIFT. USES BEDPAN FOR STOOL. SUPRAPUBIC CATH PATENT DRAINING TO GRAVITY WITH YELLOW URINE. IV TO R AC SALINE LOCKED. VITAL SIGNS REVIEWED. BED IN LOWEST POSITION, LOCKED AND BED ALARM ON FOR SAFETY. CALL LIGHT IN REACH.
--- NOTE | 2022-05-12 03:25 | NUR ---
Patient resting in room, no complaints of pain or discomfort.
[2022-05-12 06:37] LABS: Hematocrit 40.1 % (33.0-51.0); Hemoglobin 12.4 g/dL (11.5-16.0); Mean Corpuscular HGB 24.8 pg (26.0-34.0); Mean Corpuscular HGB Conc 30.9 g/dL (31.5-36.5); Mean Corpuscular Volume 80 fL (80-100); NRBC ABSOLUTE 0.02 K/mm3 (0.00-0.02); NRBC Auto 0.1 /100 WBC (0.0-0.2); Platelet Count 264 K/mm3 (150-400); RDW Coefficient Variation 18.3 % (11.7-14.2); RDW Standard Deviation 52.7 fL (35.1-46.3); Red Blood Cell Count 5.01 M/mm3 (3.80-5.20); White Blood Cell Count 13.85 K/mm3 (4.00-11.30)
[2022-05-12 06:43] LABS: Bun/Creatinine Ratio 50.2 (12.0-20.0); Calcium, Blood 8.3 mg/dL (8.5-10.1); Creatinine, Blood 0.94 mg/dL (0.40-1.00); Potassium, Blood 4.6 mmol/L (3.5-5.5)
[2022-05-12 06:54] LABS: International Normalized Ratio 2.88; Prothrombin Time Results 28.2 Sec (9.7-11.5)
[2022-05-12 07:05] LABS: BASOPHILS PERCENT MAN 0 % (0-2); EOSINOPHILS PERCENT MAN 0 % (0-6); LYMPHOCYTES ABSOLUTE MAN 4.15 K/mm3 (0.84-5.20); LYMPHOCYTES PERCENT MAN 30 % (21-46); MONOCYTES ABSOLUTE MAN 2.63 K/mm3 (0.16-1.47); MONOCYTES PERCENT MAN 19 % (4-13); NEUTROPHILS ABSOLUTE MAN 7.06 K/mm3 (1.96-9.15); SEG NEUTROPHILS PERCENT MAN 51 % (41-73); TOTAL CELLS COUNTED 100
--- NOTE | 2022-05-12 15:11 | NUR ---
SHIFT SUMMARY PT RESTING QUIETLY AT START OF SHIFT. WOKE EASILY FOR CARE. SUPRA PUBIC CATH PATENT. LUNGS T/O COARSE THRU OUT. OCCASSIONAL PC. PT SLEEPING UPRIGHT MOST OF THE DAY. NOT WANTING CURTAINS OPENED AT ALL TODAY. PT NOT WANTING TO MOVE AROUND AT ALL EITHER. P/T IN TO WORK WITH PT THIS AFTERNOON, BUT PT NOT WANTING TO PARTICIPATE. PT REMAINS ON 2L O2 WITH BIOX AT 91%; UNABLE TO TITRATE DOWN AT THIS TIME. NO C/O PAIN. DENIED FURTHER NEEDS. CALL LT IN REACH.
--- NOTE | 2022-05-13 05:30 | NUR ---
SKEIN YARN DRIER SUMMARY: A&Ox3-4 WITH EPISODIC CONFUSION. CALLS APPROPRIATELY AND COMMUNICATES NEEDS EFFECTIVELY. SUPRAPUBIC CATH PATENT AND DRAINING TO GRAVITY. TWO EPISODES OF STOOL INCONTINENCE REQUIRING COMPLETE BED CHANGES. LABS DRAWN THIS AM. TELE SINUS @ 68bpm. CONTINUES TO USE SUCTION FOR INCREASED SPUTUM PRODUCTION. EXPERIENCING INCREASED ANXIETY AND HAVING SOME EPISODES OF RAMBLING ABOUT "KEEPING HER MOUTH SHUT" AND "BEING QUIET". WANTS TO DISCUSS DIABETIC OPTIONS WITH DIETARY AND HER CONDITION WITH DR EUCEDA. WILL REPORT TO ONCOMING RN.
[2022-05-13 05:50] LABS: BASOPHILS ABSOLUTE AUTO 0.04 K/mm3 (0.00-0.23); BASOPHILS PERCENT AUTO 0 % (0-2); EOSINOPHILS PERCENT AUTO 0 % (0-6); Hemoglobin 11.8 g/dL (11.5-16.0); IMMATURE GRAN ABSOLUTE AUTO 0.16 K/mm3 (0.00-0.10); IMMATURE GRAN PERCENT AUTO 1 % (0-1); LYMPHOCYTES ABSOLUTE AUTO 4.31 K/mm3 (0.84-5.20); LYMPHOCYTES PERCENT AUTO 30 % (21-46); MONOCYTES ABSOLUTE AUTO 1.75 K/mm3 (0.16-1.47); MONOCYTES PERCENT AUTO 12 % (4-13); Mean Corpuscular HGB Conc 30.3 g/dL (31.5-36.5); Mean Corpuscular Volume 83 fL (80-100); Mean Platelet Volume 10.2 fL (9.1-12.4); NEUTROPHILS ABSOLUTE AUTO 8.12 K/mm3 (1.96-9.15); NEUTROPHILS PERCENT AUTO 56 % (41-73); Platelet Count 278 K/mm3 (150-400); RDW Coefficient Variation 18.1 % (11.7-14.2); RDW Standard Deviation 54.6 fL (35.1-46.3); Red Blood Cell Count 4.72 M/mm3 (3.80-5.20); White Blood Cell Count 14.38 K/mm3 (4.00-11.30)
[2022-05-13 06:03] LABS: International Normalized Ratio 2.74; Prothrombin Time Results 26.9 Sec (9.7-11.5)
[2022-05-13 06:08] LABS: Bun/Creatinine Ratio 55.9 (12.0-20.0); Creatinine, Blood 1.18 mg/dL (0.40-1.00); Potassium, Blood 4.5 mmol/L (3.5-5.5)
--- NOTE | 2022-05-13 16:21 | NUR ---
SHIFT SUMMARY PT SLEEPING AT START OF SHIFT, RESTING QUIETLY. PT WOKE EASILY FOR CARE. PT'S TO THIS AM AND AGAIN THIS AFTERNOON. THERAPY IN TO WORK WITH PT AFTER BREAKFAST. AMBULATING IN AND TO CHAIR AT . DR WALTON IN TO SEE PT AND DISCUSS PLAN OF CARE. NEW ORDERS PLACED. SPUTUM CX ORDERED AND OBTAINED. IV ABX ORDERED AND GIVEN PER EMAR. PT TAKEN DOWN TO IMAGING FOR STAT CXR VIA W/C AND RETURNED VIA CART. PER MANAGER MANUFACTURING, PT TOO WEAK TO KEEP GETTING UP AND DOWN FROM BEDS AND CHAIRS. SLIDE TX BACK TO BED. PT RESTING QUIETLY AT THIS TIME. LUNGS T/O WITH INSP/EXP WHEEZES TODAY. ONLY OCCASSIONAL COUGHING TODAY. MINIMAL PC COMPARED TO YESTERDAY. REPORT TO BE GIVEN TO MELCHOR BOO.
--- NOTE | 2022-05-13 18:34 | NUR ---
LATE ENTRY 1630: RECEIVED REPORT FROM GRACIELA BOO. ASSUMED CARE OF PT TIL END OF SHIFT.
--- NOTE | 2022-05-14 07:57 | NUR ---
PATIENT PORTAL CONCIERGE SUMMARY: A&Ox3-4. RESISTANT TO CARE IN SOME MANNER, OFTEN TRYING TO HAVE STAFF DO THINGS FOR HER SHE HAS BEEN CAPABLE OF DOING PREVIOUSLY. PRN BENZONATE ADMINISTERED x2 T/O SHIFT. WILL REPORT TO ONCOMING RN.
[2022-05-14 09:23] LABS: BASOPHILS ABSOLUTE AUTO 0.05 K/mm3 (0.00-0.23); BASOPHILS PERCENT AUTO 0 % (0-2); EOSINOPHILS PERCENT AUTO 0 % (0-6); Hematocrit 37.5 % (33.0-51.0); Hemoglobin 11.6 g/dL (11.5-16.0); IMMATURE GRAN ABSOLUTE AUTO 0.31 K/mm3 (0.00-0.10); IMMATURE GRAN PERCENT AUTO 2 % (0-1); LYMPHOCYTES ABSOLUTE AUTO 2.92 K/mm3 (0.84-5.20); LYMPHOCYTES PERCENT AUTO 17 % (21-46); MONOCYTES ABSOLUTE AUTO 0.67 K/mm3 (0.16-1.47); MONOCYTES PERCENT AUTO 4 % (4-13); Mean Corpuscular HGB 25.1 pg (26.0-34.0); Mean Corpuscular HGB Conc 30.9 g/dL (31.5-36.5); Mean Corpuscular Volume 81 fL (80-100); Mean Platelet Volume 10.1 fL (9.1-12.4); NEUTROPHILS ABSOLUTE AUTO 12.94 K/mm3 (1.96-9.15); NEUTROPHILS PERCENT AUTO 77 % (41-73); Platelet Count 315 K/mm3 (150-400); RDW Coefficient Variation 17.8 % (11.7-14.2); Red Blood Cell Count 4.63 M/mm3 (3.80-5.20); White Blood Cell Count 16.89 K/mm3 (4.00-11.30)
[2022-05-14 09:42] LABS: Prothrombin Time Results 29.3 Sec (9.7-11.5)
[2022-05-14 09:43] LABS: Albumin, Blood 2.7 g/dL (3.4-5.0); Albumin/Globulin Ratio 0.6 (0.8-1.8); Bilirubin, Total 0.4 mg/dL (0.1-1.0); Bun/Creatinine Ratio 69.1 (12.0-20.0); Calcium, Blood 8.1 mg/dL (8.5-10.1); Creatinine, Blood 1.23 mg/dL (0.40-1.00); Globulin, Blood 4.2 g/dL (2.2-4.0); Magnesium, Blood 2.8 mg/dL (1.6-2.4); Potassium, Blood 5.1 mmol/L (3.5-5.5); Total Protein, Blood 6.9 g/dL (6.4-8.2)
--- NOTE | 2022-05-14 16:39 | NUR ---
SHIFT SUMMARY: PATIENT A&OX3. ANXIOUS AT TIME BEGINNING OF SHIFT BUT CALMS DOWN T/O THE DAY. PLEASANT AND COOPERARTIVE WITH CARE. USES CALL LIGHT APPROPRIATELY AND ABLE TO ADVOCATE FOR HER NEEDS. DENIES CP/CHEST DISCOMFORT. PATIENT ON TELE, AND HAS BEEN IN SR AT 77 BPM PER C4 PLANNER, RUFUS XAVIER. LUNGS HAS INS/EXP WHEEZES T/O TO AUSCULTATION. ON O2 2L VIA NC SPO2 ABOVE 90%. PATIENT PARTICIPATE WITH PT MOBILITY THIS AM. SITTING UP IN THE CHAIR FOR ABOUT 5 HRS AND TOLERATED WELL. PATIENT REPORTS OF COUGH. MEDICATE X1 WITH PRN COUGH SYRUP. RECEIVED SCHEDULED MEDS THIS SHIFT. SUPRAPUBIC CATH CARE, PATENT DRAINING TO GRAVITY WITH YELLOW URINE. IV TO R AC SALINE LOCKED. VITAL SIGNS REVEIWED. BED IN LOWEST POSITIONED, LOCKED AND BED ALARM ON FOR SAFETY. CALL LIGHT IN REACH.
--- NOTE | 2022-05-15 06:18 | NUR ---
TOWNSHIP SUPERVISOR SUMMARY: A&Ox3-4. CALLS APPROPRIATELY. COMMUNICATES NEEDS WITH SOME DIFFICULTY FINDING THE RIGHT WORDS AND TENDS TO USE ASSOCIATED WORDS OR THOUGHTS (EX: INSTEAD OF ASKING FOR ICE CREAM, TELLS THIS RN HER IS A GENEROUS MAN AND WHEN SHE ASKS FOR ICE CREAM HE GIVES HER HER HALF CUP OF ICE CREAM.). WHEN ASKED QUESTIONS, SHE DOES NOT ANSWER YES OR NO, BUT WILL INSTEAD GIVE A RATIONALE TO WHY HER ANSWER IS YES OR NO. COUGHING LESS, THOUGH BREATHING IS STILL "MOIST" WITH INSPIRATORY AND EXPIRATORY WHEEZE AND GRUNTS. NO ACUTE CONCERNS T/O THE NIGHT. WILL REPORT TO ONCOMING RN.
[2022-05-15 06:19] LABS: BASOPHILS ABSOLUTE AUTO 0.03 K/mm3 (0.00-0.23); BASOPHILS PERCENT AUTO 0 % (0-2); EOSINOPHILS PERCENT AUTO 0 % (0-6); Hematocrit 36.2 % (33.0-51.0); IMMATURE GRAN ABSOLUTE AUTO 0.32 K/mm3 (0.00-0.10); IMMATURE GRAN PERCENT AUTO 2 % (0-1); LYMPHOCYTES ABSOLUTE AUTO 2.61 K/mm3 (0.84-5.20); LYMPHOCYTES PERCENT AUTO 15 % (21-46); MONOCYTES ABSOLUTE AUTO 0.73 K/mm3 (0.16-1.47); MONOCYTES PERCENT AUTO 4 % (4-13); Mean Corpuscular HGB 24.8 pg (26.0-34.0); Mean Corpuscular HGB Conc 30.4 g/dL (31.5-36.5); Mean Corpuscular Volume 82 fL (80-100); Mean Platelet Volume 10.5 fL (9.1-12.4); NEUTROPHILS ABSOLUTE AUTO 14.05 K/mm3 (1.96-9.15); NEUTROPHILS PERCENT AUTO 79 % (41-73); NRBC ABSOLUTE 0.02 K/mm3 (0.00-0.02); NRBC Auto 0.1 /100 WBC (0.0-0.2); Platelet Count 326 K/mm3 (150-400); RDW Coefficient Variation 17.9 % (11.7-14.2); RDW Standard Deviation 53.1 fL (35.1-46.3); Red Blood Cell Count 4.43 M/mm3 (3.80-5.20); White Blood Cell Count 17.74 K/mm3 (4.00-11.30)
[2022-05-15 06:32] LABS: International Normalized Ratio 3.49; Prothrombin Time Results 33.8 Sec (9.7-11.5)
[2022-05-15 06:38] LABS: Bun/Creatinine Ratio 73.8 (12.0-20.0); Calcium, Blood 7.8 mg/dL (8.5-10.1); Creatinine, Blood 1.3 mg/dL (0.40-1.00); Potassium, Blood 5.3 mmol/L (3.5-5.5)
[2022-05-15 14:06] LABS: Vancomycin, Trough 19.9 ug/mL (5.0-10.0)
--- NOTE | 2022-05-15 17:46 | NUR ---
SHIFT SUMMARY: NO ACUTE CHANGES THIS SHIFT. PATIENT A&OX3-4, AND LESS ANXIOUS TODAY COMPARED YESTERDAY. PATIENT STILL ON DROPLET ISOLATION FOR INFLUENZA. LUNGS HAS INS/EXP WHEEZES T/O TO AUSCULTATION. PATIENT ON O2 2L VIA NC WITH SPO2 OF 94% T/O SHIFT. PATIENT STILL HAVING PRODUCTIVE COUGH WITH YELLOW SPUTUM. CHRONIC SUPRAPUBIC CATHETER PATENT DRAINING TO GRAVITY WITH YELLOW URINE. PATIENT BS RANGES FROM 180'S-220'S THIS SHIFT. RECEIVED INSULIN COVERAGE PER EMAR. IV TO R AC SALINE LOCKED. VITAL SIGNS REVIEWED. PLAN TO DISCHARGE PATIENT HOME TOMORROW WITH HH SERVICES THROUGH [facility]. BED IN LOWEST POSITIONED, LOCKED AND BED ALARM ON FOR SAFETY. CALL LIGHT IN REACH.
--- NOTE | 2022-05-15 20:00 | NUR ---
THE PATIENT IS AN 81 YEAR-OLD FEMALE WITH A DIAGNOSIS OF RESPIRATORY FAILURE AND INFLUENZA. A&OX4. TANGENTIAL SPEECH. PATIENT EFFECTIVELY COMMUNICATES NEEDS. CALL LIGHT WITHIN REACH. BED LOW AND LOCKED. VSS. O2 >90% ON 2L. PATIENT DENIES PAIN. NO ACUTE CONCERNS AT THIS TIME. WILL CONTINUE TO CLOSELY MONITOR.
--- NOTE | 2022-05-16 03:44 | NUR ---
VP ANALYSIS SUMMARY THE PATIENT IS AN 81 YEAR-OLD FEMALE WITH A DIAGNOSIS OF RESPIRATORY FAILURE AND INFLUENZA. DROPLET PRECAUTIONS MAINTAINED. A&OX4 WITH TANGENTIAL SPEECH. PATIENT EFFECTIVELY COMMUNICATES NEEDS; HOWEVER, EPISODES OF ANXIETY NOTED. CALL LIGHT WITHIN REACH. BED LOW AND LOCKED. VSS. O2 >90% ON 2L NC. TELE REVEALS SR, 60'S. LS DIMINISHED THROUGHOUT /C PRODUCTIVE COUGH. SUCTION AT BEDSIDE. SUPRAPUBIC CATHETER WELL-DRAINING. LEFT AC IV MAINTAINED. PATIENT DENIES PAIN. NO ACUTE SIGNS OR SYMPTOMS. Q2HR REPOSITIONING. WILL CONTINUE TO CLOSELY MONITOR.
[2022-05-16 06:49] LABS: International Normalized Ratio 2.55; Prothrombin Time Results 25.2 Sec (9.7-11.5)
[2022-05-16 13:52] LABS: BASOPHILS ABSOLUTE AUTO 0.05 K/mm3 (0.00-0.23); BASOPHILS PERCENT AUTO 0 % (0-2); EOSINOPHILS PERCENT AUTO 0 % (0-6); Hematocrit 39.4 % (33.0-51.0); Hemoglobin 12.2 g/dL (11.5-16.0); IMMATURE GRAN ABSOLUTE AUTO 0.71 K/mm3 (0.00-0.10); IMMATURE GRAN PERCENT AUTO 4 % (0-1); LYMPHOCYTES ABSOLUTE AUTO 2.26 K/mm3 (0.84-5.20); LYMPHOCYTES PERCENT AUTO 13 % (21-46); MONOCYTES ABSOLUTE AUTO 1.16 K/mm3 (0.16-1.47); MONOCYTES PERCENT AUTO 7 % (4-13); Mean Corpuscular HGB 25.1 pg (26.0-34.0); Mean Corpuscular Volume 81 fL (80-100); Mean Platelet Volume 10.4 fL (9.1-12.4); NEUTROPHILS ABSOLUTE AUTO 13.38 K/mm3 (1.96-9.15); NEUTROPHILS PERCENT AUTO 76 % (41-73); NRBC ABSOLUTE 0.03 K/mm3 (0.00-0.02); NRBC Auto 0.2 /100 WBC (0.0-0.2); Platelet Count 366 K/mm3 (150-400); RDW Coefficient Variation 18.4 % (11.7-14.2); RDW Standard Deviation 53.1 fL (35.1-46.3); Red Blood Cell Count 4.86 M/mm3 (3.80-5.20); White Blood Cell Count 17.56 K/mm3 (4.00-11.30)
[2022-05-16 13:59] LABS: International Normalized Ratio 2.29; Prothrombin Time Results 22.8 Sec (9.7-11.5)
[2022-05-16 14:30] LABS: Albumin/Globulin Ratio 0.7 (0.8-1.8); Bilirubin, Total 0.3 mg/dL (0.1-1.0); Bun/Creatinine Ratio 83.9 (12.0-20.0); Calcium, Blood 8.3 mg/dL (8.5-10.1); Creatinine, Blood 1.12 mg/dL (0.40-1.00); Globulin, Blood 4.4 g/dL (2.2-4.0); Potassium, Blood 5.9 mmol/L (3.5-5.5); Total Protein, Blood 7.4 g/dL (6.4-8.2)
[2022-05-16] MEDS ORDERED: Acetaminophen325 M1 PO (15:07)
[2022-05-16] MEDS ORDERED: LEVO750 PO (15:09)
[2022-05-16] MEDS ORDERED: Prednisone10 MG PO (15:11)
[2022-05-16] MEDS ORDERED: GUAI600T33 PO (15:12)
[2022-05-16] MEDS ORDERED: DOCU100 PO (15:13)
[2022-05-16] MEDS ORDERED: Tessalon200 MG PO (15:14)
[2022-05-16] MEDS ORDERED: ALBU90OI INH (15:15)
--- NOTE | 2022-05-16 19:30 | NUR ---
SHIFT/DISCHARGE SUMMARY: PATIENT A&OX3 AND VERY ANXIOUS TODAY THE DAY PROGRESS. PATIENT WAS BEING INPATIENCE TO BE DISCHARGE HOME. EDUCATE PATIENT AWAITING FOR DR. GENAO TO DO THE ROUND THIS MORNING. THIS RN COMMUNICATE WITH DR. GENAO THAT PATIENT ON RA AT BASELINE AND PATIENT HAS BEEN ON O2 SINCE ADMISSION. RECIEVED TELEPHONE ORDER FROM DR. FIELD TO PLACE A HOME O2 EVAL FOR PATIENT. RT PERFORMED HOME O2 AND RECOMMENDED O2 2L VIA NC. THIS RN WAS EDUCATING PATIENT IN ORDER TO DISCHARGE HER HOME SHE NEEDS TO HAVE O2 DILEVERED TO ROOM. PATIENT WAS VERY UPSET AND ARGUMENTATIVE. THIS RN EXPLAINING TO PATIENT THE RISK AND BENIFITS OF HAVING ADEQUATE OXYGENATION, BUT PATIENT REMAINS INPATIENCE. CALLED SPOUSE TO GIVE UPDATE REGARDING PATIENT DISCHARGE STATUS, SPOUSE WAS AGREEABLE AND STATED UNDERSTANDIN THE SITUATIONS. PATIENT REFUSE TO PARTICIPATE WITH PT THIS AM. REFUSE AFTERNOON DOSE OF ANTIBIOTICS. PATIENT LUNGS CRACLES AND WHEEZES T/O TO AUSCULTATION. VITALS SIGNS REVIEWED. IV TO R AC WAS DC'D. PORTABLE O2 WAS DELIVERED TO ROOM BY [facility]. THIS RN CALLED THE SPOUSE MANSI THAT PATIENT READY FOR DISCHARGE. PATIENT DISCHARGE HOME. DISCHARGE INSTRUCTION PACKET GIVEN TO PATIENT. EDUCATE PATIENT REGARDING ADMITTING DX, S/S, TX, AND NEW PRESCRIBED MEDICATIONS. PATIENT STATED UNDERSTANDING AND NO FURTHER QUESTIONS AND STATED "I JUST NEED TO GET OUT OF HERE." RX WAS FAXED TO PATIENT PREFERRED PHARMACY. ALL PATIENT PERSONAL BELONGINGS WERE SENT HOME WITH THE PATIENT. PATIENT WAS TRANSPORTED VIA PERSONAL WHEELCHAIR BROUGHT FROM HOME BY MANSI BURAK. THIS RN HELP PATIENT AND SPOUSE CARRIED PERSONAL BELONGINGS TO THEIR PRIVATE VEHICLE. UPON ASSISTING THE PATIENT TRANSFERRED TO THEIR PRIVATE VEHICLE PATIENT WAS HAVING DIFFICULTY GETTING INTO THE VAN. PATIENT REMAIN SITTING ON THE STEP OF THE VAN WHILE SPOUSE SUPPORTING PATIENT NOT TO FALL. THIS RN ASK THE SECURITY DEPT FOR ASSISTANCE BUT DECLINE. RECYCLER LENA WAS NOTIFIED WITH THE SITUATIONS THROUGH [facility], EMA SENT ANOTHER RN CHANEL TO HELP THE PATIENT TRANSFERRED BACK TO WHEELCHAIR. LENA CHARGE NURSE NOTIFIED DR FIELD WITH THE PATIENT SITUATION AND ADVISE TO SEND PATIENT TO ED FOR FURTHER ASSISTANCE.
--- NOTE | 2022-05-17 04:14 | NUR ---
REVIEWED INFOR FOR CURRENT ADMISSION
== END 2022-05-16 16:34 | disposition home or self-care (01) | DRG 193 ==
LOC: ER 16:43 → MEDS 21:12
PROVIDERS: Emergency Medicine; Family Medicine; Hospitalist; Student in an Organized Health Care Education/Training Program; ADMIT Family Medicine
DX: J10.1 Influenza due to other identified influenza virus with other respiratory manifestations (principal); J96.21 Acute and chronic respiratory failure with hypoxia; D68.59 Other primary thrombophilia; Z68.43 Body mass index [BMI] 50.0-59.9, adult; E66.01 Morbid (severe) obesity due to excess calories; I10 Essential (primary) hypertension; E03.9 Hypothyroidism, unspecified; I89.0 Lymphedema, not elsewhere classified; Z88.5 Allergy status to narcotic agent; Z88.8 Allergy status to other drugs, medicaments and biological substances; G47.33 Obstructive sleep apnea (adult) (pediatric); Z86.711 Personal history of pulmonary embolism; E11.40 Type 2 diabetes mellitus with diabetic neuropathy, unspecified; Z66 Do not resuscitate; M19.90 Unspecified osteoarthritis, unspecified site; E78.5 Hyperlipidemia, unspecified; Z90.12 Acquired absence of left breast and nipple; Z85.3 Personal history of malignant neoplasm of breast; M1A.9XX0 Chronic gout, unspecified, without tophus (tophi); Z96.653 Presence of artificial knee joint, bilateral; Z96.641 Presence of right artificial hip joint; Z90.710 Acquired absence of both cervix and uterus; Z90.721 Acquired absence of ovaries, unilateral; Z79.899 Other long term (current) drug therapy; Z79.01 Long term (current) use of anticoagulants; Z20.822 Contact with and (suspected) exposure to COVID-19; E87.5 Hyperkalemia; D72.828 Other elevated white blood cell count; T38.0X5A Adverse effect of glucocorticoids and synthetic analogues, initial encounter; Z28.21 Immunization not carried out because of patient refusal
CPT/HCPCS: 0241U; 36415; 71045; 71250; 80048; 80053; 80202; 82947; 83735; 83880; 84100; 85025; 85610; 87070; 87077; 87185; 87186; 87205; 93005; 93010; 94640; 94664; 94760; 94761; 94762; 96360; 96374; 97110; 97116; 97162; 97530; 99285-25; A9270; G0378; J0456; J0696; J1940; J2920; J3370; J7030; J7050; J7512

== ENCOUNTER 2022-05-16 17:16 | Inpatient (IN) | payer OTHER ==
[~2022-05-16] VITALS: Ht 154.9 cm; Wt 119.1 kg
[~2022-05-16 17:16] MED LIST changes: +ACYCLOVIR400 MG PO; +ALBU90OI INH; +Acetaminophen325 M1 PO; +Atarax10 MG PO; +FUROSEMIDE20 MG PO; +GUAI600T33 PO; +LEVO750 PO; +LIDO5TO TOP; +Prednisone10 MG PO; +Tessalon200 MG PO
[2022-05-17 09:13] LABS: BASOPHILS ABSOLUTE AUTO 0.05 K/mm3 (0.00-0.23); BASOPHILS PERCENT AUTO 0 % (0-2); EOSINOPHILS PERCENT AUTO 0 % (0-6); Hematocrit 39.5 % (33.0-51.0); IMMATURE GRAN ABSOLUTE AUTO 0.49 K/mm3 (0.00-0.10); IMMATURE GRAN PERCENT AUTO 3 % (0-1); LYMPHOCYTES ABSOLUTE AUTO 2.55 K/mm3 (0.84-5.20); LYMPHOCYTES PERCENT AUTO 15 % (21-46); MONOCYTES ABSOLUTE AUTO 1.52 K/mm3 (0.16-1.47); MONOCYTES PERCENT AUTO 9 % (4-13); Mean Corpuscular HGB 25.2 pg (26.0-34.0); Mean Corpuscular HGB Conc 30.4 g/dL (31.5-36.5); Mean Corpuscular Volume 83 fL (80-100); Mean Platelet Volume 10.1 fL (9.1-12.4); NEUTROPHILS ABSOLUTE AUTO 11.97 K/mm3 (1.96-9.15); NEUTROPHILS PERCENT AUTO 72 % (41-73); Platelet Count 316 K/mm3 (150-400); RDW Coefficient Variation 18.5 % (11.7-14.2); RDW Standard Deviation 55.2 fL (35.1-46.3); Red Blood Cell Count 4.76 M/mm3 (3.80-5.20); White Blood Cell Count 16.58 K/mm3 (4.00-11.30)
[2022-05-17 09:28] LABS: International Normalized Ratio 1.95; Prothrombin Time Results 19.6 Sec (9.7-11.5)
[2022-05-17 09:32] LABS: Albumin, Blood 3.1 g/dL (3.4-5.0); Albumin/Globulin Ratio 0.8 (0.8-1.8); Bilirubin, Total 0.5 mg/dL (0.1-1.0); Bun/Creatinine Ratio 72.8 (12.0-20.0); Calcium, Blood 8.3 mg/dL (8.5-10.1); Creatinine, Blood 1.03 mg/dL (0.40-1.00); Potassium, Blood 5.7 mmol/L (3.5-5.5); Total Protein, Blood 7.1 g/dL (6.4-8.2)
--- NOTE | 2022-05-17 19:43 | NUR ---
SHIFT SUMMARY- PT ALERT AND ORIENTED TO SELF. SHE EXHIBITS PREAURED SPEECH AND SEEMS VERY UNHAPPY WITH ALL CARE PROVIDED, AFTER THE FACT, WHILE RECIEVING CARE SHE IS SHARP AND A LITTLE DEMANDING, SHE HAS BEEN MAKING EFFORTS TO CORRECT HER OWN BEHAVIOR. SHE OFTEN WILL QUOTE SCRIPTURE OR START SAYING A LENGTHY PRAYER WHEN STAFF ARE IN THE ROOM AND ASK HER A QUESTION SHE DOES NOT LIKE THE ANSWER TO. PT WAS SEEN BY PT/OT/ST TODAY. SHE HAD AN EPISODE OF CHOKING AT BREAKFAST TIME. SHE COUGHED LONG AND HARD AND ACTUALLY TURNED PURPLE IN COLOR. DR GENAO INFORMED OF THE EVENT, ST SWALLOW STUDY ORDERED, CHEST XRAY ORDERED, SUCTION WAS SET UP AT THE BEDSIDE DURING THE EVENT HOWEVER PT WAS ABLE TO COUGH AND CLEAR HER AIRWAY. SHE WAS COUGHING AND SPITTING UP BREAKFAST FOOD. AFTER THE EVENT SHE TOLD HER "THREE STAFF STOOD AROUND AND WATCHED HER CHOKE" HOWEVER SHE DENIED CHOKING AT ALL LATER. THERE SEEMS TO BE SOME MEMORY ISSUES, DIFFICULT TO DETERMINE SHE ANSWERS QUESTIONS APPROPRIATELY. PT HAS A CHRONIC JOHNSON IN PLACE THAT HAS HAD A GOOD AMOUNT OF PINK URINE THIS MORNING, BLOODY URINE THIS AFTERNOON AND BACK TO PINK URINE THIS EVENING, DR GENAO IS AWARE OF THIS WELL. PT IS CURRENTLY SITTING UP IN THE CHAIR WITH THE CALL LIGHT IN REACH, BEDSIDE REPORT COMPLETED WITH NIGHT EMA [place]ACK[place], NO S&S OF DISTRESS NOTED AT THE TIME OF REPORT.
[2022-05-18 12:43] LABS: International Normalized Ratio 1.74; Prothrombin Time Results 17.6 Sec (9.7-11.5)
--- NOTE | 2022-05-18 19:54 | NUR ---
SUMMARY- PT ALERT ORIENTED X3, MILD CONFUSION. PT BECOMES EASILY EMOTIONAL AND IS EASILY FRUSTRATED. SOMETIMES BECOMES VERY SHAKY WHEN UPSET. PT GOT UP IN THE CHAIR FOR ALL MEALS. TOLERATING FOOD AND FLUID. USES CALL LIGHT. BLOOD SUGARS CONTROLLED WITH SS HUMALOG. AT BEDSIDE MOST OF THE DAY, SUPPORTIVE IN CARE. AWAITING PLACEMENT TO SNF
--- NOTE | 2022-05-19 04:36 | NUR ---
SHIFT SUMMARY; PT WITH NO ACUTE CHANGES OVERNIGHT. PT REMAINS ON 3L VIA NC WITH O2 SATS GREATER THAN 92%. PT DENIES ANY PAIN OR SOB. PT WITH GROSS MOTOR TREMOR LAST NIGHT. PT WAS ANXIOUS LAST NIGHT. PT WITH BS OF 350 AT , NOTIFIED. A ONE TIME DOSE OF 4 UNITS OF HUMALOG WAS ORDERED. CURRENTLY THE PT IS RESTING IN BED WITH THE BED IN THE LOWEST POSITION AND THE CALL LIGHT WITHIN REACH.
[2022-05-19 06:56] LABS: BASOPHILS ABSOLUTE AUTO 0.05 K/mm3 (0.00-0.23); BASOPHILS PERCENT AUTO 0 % (0-2); EOSINOPHILS PERCENT AUTO 0 % (0-6); Hematocrit 36.8 % (33.0-51.0); IMMATURE GRAN ABSOLUTE AUTO 0.51 K/mm3 (0.00-0.10); IMMATURE GRAN PERCENT AUTO 3 % (0-1); LYMPHOCYTES ABSOLUTE AUTO 2.09 K/mm3 (0.84-5.20); LYMPHOCYTES PERCENT AUTO 13 % (21-46); MONOCYTES ABSOLUTE AUTO 0.68 K/mm3 (0.16-1.47); MONOCYTES PERCENT AUTO 4 % (4-13); Mean Corpuscular HGB 24.8 pg (26.0-34.0); Mean Corpuscular HGB Conc 29.9 g/dL (31.5-36.5); Mean Corpuscular Volume 83 fL (80-100); Mean Platelet Volume 10.5 fL (9.1-12.4); NEUTROPHILS ABSOLUTE AUTO 13.28 K/mm3 (1.96-9.15); NEUTROPHILS PERCENT AUTO 80 % (41-73); Platelet Count 294 K/mm3 (150-400); RDW Coefficient Variation 18.3 % (11.7-14.2); RDW Standard Deviation 55.7 fL (35.1-46.3); Red Blood Cell Count 4.43 M/mm3 (3.80-5.20); White Blood Cell Count 16.61 K/mm3 (4.00-11.30)
[2022-05-19 07:25] LABS: Albumin, Blood 2.9 g/dL (3.4-5.0); Albumin/Globulin Ratio 0.9 (0.8-1.8); Bilirubin, Total 0.4 mg/dL (0.1-1.0); Bun/Creatinine Ratio 56.2 (12.0-20.0); Calcium, Blood 8.2 mg/dL (8.5-10.1); Creatinine, Blood 0.98 mg/dL (0.40-1.00); Globulin, Blood 3.3 g/dL (2.2-4.0); Potassium, Blood 5.5 mmol/L (3.5-5.5); Total Protein, Blood 6.2 g/dL (6.4-8.2)
[2022-05-19 07:57] LABS: International Normalized Ratio 1.97; Prothrombin Time Results 19.8 Sec (9.7-11.5)
--- NOTE | 2022-05-19 17:09 | NUR ---
DAYSHIFT SUMMARY Patient sleeping comfortably this morning, awake at 10am. Patient OOB in recliner for all meals. Patient worked with therapy today. Patient seems frusterated at times, verbalizes needs outloud, but will not directly ask staff to do tasks, then became upset with nurses. Patient will request bring in billfold/paperwork for her to work on, and then tells to take things away, she cannot work on them. Patient repeats herself often. appears distraught, unsure with discharge plan or why his is making contradicting requests of him. CBGs 227, 275 & lastly 182 at dinner time, SSI given. Referrals sent to SNF, awaiting acceptance.
[2022-05-20 05:17] LABS: BASOPHILS ABSOLUTE AUTO 0.07 K/mm3 (0.00-0.23); BASOPHILS PERCENT AUTO 0 % (0-2); EOSINOPHILS PERCENT AUTO 0 % (0-6); Hematocrit 37.7 % (33.0-51.0); Hemoglobin 11.6 g/dL (11.5-16.0); IMMATURE GRAN ABSOLUTE AUTO 0.47 K/mm3 (0.00-0.10); IMMATURE GRAN PERCENT AUTO 2 % (0-1); LYMPHOCYTES ABSOLUTE AUTO 1.94 K/mm3 (0.84-5.20); LYMPHOCYTES PERCENT AUTO 10 % (21-46); MONOCYTES ABSOLUTE AUTO 0.76 K/mm3 (0.16-1.47); MONOCYTES PERCENT AUTO 4 % (4-13); Mean Corpuscular HGB 25.1 pg (26.0-34.0); Mean Corpuscular HGB Conc 30.8 g/dL (31.5-36.5); Mean Corpuscular Volume 82 fL (80-100); Mean Platelet Volume 10.4 fL (9.1-12.4); NEUTROPHILS ABSOLUTE AUTO 16.41 K/mm3 (1.96-9.15); NEUTROPHILS PERCENT AUTO 83 % (41-73); Platelet Count 294 K/mm3 (150-400); RDW Coefficient Variation 18.5 % (11.7-14.2); RDW Standard Deviation 54.4 fL (35.1-46.3); Red Blood Cell Count 4.62 M/mm3 (3.80-5.20); White Blood Cell Count 19.65 K/mm3 (4.00-11.30)
[2022-05-20 05:34] LABS: International Normalized Ratio 2.68; Prothrombin Time Results 26.4 Sec (9.7-11.5)
[2022-05-20 05:36] LABS: Albumin, Blood 2.8 g/dL (3.4-5.0); Albumin/Globulin Ratio 0.8 (0.8-1.8); Bilirubin, Total 0.4 mg/dL (0.1-1.0); Creatinine, Blood 0.96 mg/dL (0.40-1.00); Globulin, Blood 3.6 g/dL (2.2-4.0); Potassium, Blood 5.6 mmol/L (3.5-5.5); Total Protein, Blood 6.4 g/dL (6.4-8.2)
--- NOTE | 2022-05-20 06:37 | NUR ---
Rn summary: Patient is alert and oriented, she writes down everything you do for her in her "medical diary." She was up in the chair at the beginning of shift, she was tired and was able to get to bed with walker and gaitbelt and 1 assist. Pt watched TV until at least4 am, said she was staying awake to" keep the connection open for communication." Pt did sleep soundly after that. No coughing heard, lungs are diminished throughout. Pt is on 4Liters O2. Pt has fine hand tremors. Call light in reach.
--- NOTE | 2022-05-20 17:37 | NUR ---
DAYSHIFT SUMMARY Patient doing well today, pleasant & cooperative with cares. OOB for all meals, worked with PT today. Patient SOB w/ activity, moderate tremors noted. Patient becomes anxious when walking, becomes she starts shaking, and then patient wants to give up and sit back down in chair. 2x staff assist helped patient walked to bathroom & take a shower. Small open/abrasion on inner buttock, placed mepilex to site. CBGs >200, SSI given. Vitals stable. Plan is to discharge monday to [facility].
[2022-05-21 05:14] LABS: BASOPHILS ABSOLUTE AUTO 0.04 K/mm3 (0.00-0.23); BASOPHILS PERCENT AUTO 0 % (0-2); EOSINOPHILS PERCENT AUTO 0 % (0-6); Hematocrit 37.2 % (33.0-51.0); Hemoglobin 11.7 g/dL (11.5-16.0); IMMATURE GRAN ABSOLUTE AUTO 0.38 K/mm3 (0.00-0.10); IMMATURE GRAN PERCENT AUTO 2 % (0-1); LYMPHOCYTES ABSOLUTE AUTO 1.71 K/mm3 (0.84-5.20); LYMPHOCYTES PERCENT AUTO 9 % (21-46); MONOCYTES ABSOLUTE AUTO 0.73 K/mm3 (0.16-1.47); MONOCYTES PERCENT AUTO 4 % (4-13); Mean Corpuscular HGB 25.4 pg (26.0-34.0); Mean Corpuscular HGB Conc 31.5 g/dL (31.5-36.5); Mean Corpuscular Volume 81 fL (80-100); Mean Platelet Volume 10.6 fL (9.1-12.4); NEUTROPHILS ABSOLUTE AUTO 15.83 K/mm3 (1.96-9.15); NEUTROPHILS PERCENT AUTO 85 % (41-73); Platelet Count 270 K/mm3 (150-400); RDW Coefficient Variation 18.6 % (11.7-14.2); RDW Standard Deviation 53.9 fL (35.1-46.3); Red Blood Cell Count 4.61 M/mm3 (3.80-5.20); White Blood Cell Count 18.69 K/mm3 (4.00-11.30)
[2022-05-21 05:28] LABS: International Normalized Ratio 3.22; Prothrombin Time Results 31.3 Sec (9.7-11.5)
--- NOTE | 2022-05-21 05:34 | NUR ---
FITNESS SPECIALIST SUMMARY: A&Ox3-4. SOME DIFFICULTY FINDING RIGHT WORDS SHE WANTS TO SAY AND WILL OFTEN MAKE ASSOCIATED SENTENCES. AMBULATES 2PA W/FWW&GB. WALKED FROM CHAIR TO BED. SUPRAPUBIC CATHETER PATENT AND DRAINING TO GRAVITY. MICONAZOLE APPLIED TO RADHA AREA D/T REDDENED SKIN. LABS DRAWN THIS AM; NO CRITICAL VALUES NOTED AT THIS TIME. WILL REPORT TO ONCOMING RN. PLAN TO DC TO SNF ON MONDAY.
[2022-05-21 05:42] LABS: Albumin, Blood 2.8 g/dL (3.4-5.0); Albumin/Globulin Ratio 0.8 (0.8-1.8); Bilirubin, Total 0.6 mg/dL (0.1-1.0); Bun/Creatinine Ratio 54.2 (12.0-20.0); Creatinine, Blood 0.98 mg/dL (0.40-1.00); Globulin, Blood 3.7 g/dL (2.2-4.0); Potassium, Blood 5.3 mmol/L (3.5-5.5); Total Protein, Blood 6.5 g/dL (6.4-8.2)
--- NOTE | 2022-05-21 17:59 | NUR ---
NO ACUTE CHANGES AT THIS TIME. PT HAS BEEN AOX2-3 AND COOPERATIVE OF CARE. PT IS 1-2 PERSON WITH FRONTWHEEL WALKER. DENIES ANY PAIN CALL LIGHT IS WITHIN REACH WILL CONTINUE TO MONITOR.
--- NOTE | 2022-05-22 04:05 | NUR ---
SHIFT SUMMARY; PT WITH NO ACUTE CHANGES OVERNIGHT. PT RESTED IN BED ALL NIGHT LONG. PT REMAINS STABLE ON 3L NC. PT REMAINS ANXIOUS, PT DID NOT SLEEP UNTIL ABOUT 0330 THIS AM, STATES SHE WANTS TO BE AWARE OF HER SITUATION AND WANTS TO FOCUS ON HER BREATHING. WHEN ASKED IF SHE HAD ANY SOB, PT STATES NO SHE JUST WANTS TO FOCUS ON HER BREATHING. PT REPOSITIONED MULTIPLE TIMES THROUGHOUT THE NIGHT. ORAL CARE OFFERED, PT DENIED STATING HER ORAL HYGIENE IS FINE. PT CURRENTLY SLEEPING IN BED WITH BED IN THE LOWEST POSITION AND THE CALL LIGHT AT BEDSIDE.
[2022-05-22 05:41] LABS: International Normalized Ratio 2.88; Prothrombin Time Results 28.2 Sec (9.7-11.5)
--- NOTE | 2022-05-22 16:34 | NUR ---
PT AOX2-3 AND COOPERATIVE OF CARE. PT IS A TWO PERSON ASSIST TO CHAIR OR BEDSIDE COMODE. PT CALL APPROPRIATELY. NO DISTRESS NOTED CALL LIGHT WITHIN REACH. NO ACUTE CHANGES AT JOHNSON PATENT WILL CONTINUE TO MONITOR.
--- NOTE | 2022-05-23 04:05 | NUR ---
SHIFT SUMMARY; NO ACUTE CHANGES OVERNIGHT. PT RESTED IN BED FOR THE ENTIRE NIGHT. PT EXPRESSES HAPPINESS ABOUT DSHARGING IN THE AM TO REHAB. PT IS AXO X4 AND ABLE TO USE CALL LIGHT TO COMMUNICATE NEEDS APPROPRIATLEY. PT REMAINS STABLE ON 3L O2 VIA NC. PT DENIES ANY PAIN OR SOB THIS PM. CURRENTLY THE PT IS RESTING IN BED WITH THE BED IN THE LOWEST POSITION AND THE CALL LIGHT AT BEDSIDE.
[2022-05-23 05:30] LABS: BASOPHILS ABSOLUTE AUTO 0.03 K/mm3 (0.00-0.23); BASOPHILS PERCENT AUTO 0 % (0-2); EOSINOPHILS ABSOLUTE AUTO 0.02 K/mm3 (0.00-0.68); EOSINOPHILS PERCENT AUTO 0 % (0-6); Hematocrit 39.2 % (33.0-51.0); Hemoglobin 11.9 g/dL (11.5-16.0); IMMATURE GRAN ABSOLUTE AUTO 0.16 K/mm3 (0.00-0.10); IMMATURE GRAN PERCENT AUTO 1 % (0-1); LYMPHOCYTES ABSOLUTE AUTO 3.23 K/mm3 (0.84-5.20); LYMPHOCYTES PERCENT AUTO 24 % (21-46); MONOCYTES ABSOLUTE AUTO 1.11 K/mm3 (0.16-1.47); MONOCYTES PERCENT AUTO 8 % (4-13); Mean Corpuscular HGB 24.6 pg (26.0-34.0); Mean Corpuscular HGB Conc 30.4 g/dL (31.5-36.5); Mean Corpuscular Volume 81 fL (80-100); Mean Platelet Volume 10.4 fL (9.1-12.4); NEUTROPHILS ABSOLUTE AUTO 8.83 K/mm3 (1.96-9.15); NEUTROPHILS PERCENT AUTO 66 % (41-73); Platelet Count 212 K/mm3 (150-400); RDW Coefficient Variation 18.6 % (11.7-14.2); RDW Standard Deviation 53.7 fL (35.1-46.3); Red Blood Cell Count 4.84 M/mm3 (3.80-5.20); White Blood Cell Count 13.38 K/mm3 (4.00-11.30)
[2022-05-23 05:43] LABS: International Normalized Ratio 2.65; Prothrombin Time Results 26.1 Sec (9.7-11.5)
[2022-05-23 05:45] LABS: Bun/Creatinine Ratio 53.3 (12.0-20.0); Calcium, Blood 7.8 mg/dL (8.5-10.1); Creatinine, Blood 0.9 mg/dL (0.40-1.00); Potassium, Blood 3.7 mmol/L (3.5-5.5)
[2022-05-23 09:56] LABS: SARS-Cov-2 (COVID-19) PCR, MMC NEGATIVE (NEGATIVE)
--- NOTE | 2022-05-23 15:08 | NUR ---
REPORT CALLED TO NURSE FINCH AT [facility]. DENIED FURTHER QUESTIONS AT THIS TIME.
--- NOTE | 2022-05-23 16:08 | NUR ---
DISCHARGE PT DISCHARGED AT 1608. ALF HERNANDEZ GIVEN REPORT PREVIOUSLY WITH NO FURTHER QUESTIONS. IV REMOVED & INTACT. PT DRESSED AND PT FAMILY TOOK HER BELONGINGS OUT TO THE CAR. PT TRANSPORTED VIA WHEELCHAIR BY [facility].
== END 2022-05-23 16:08 | DRG 177 ==
LOC: ER 17:16 → MEDS 05-17 03:02 → ERHOLD 05-17 03:02 → MEDS 05-17 07:58
PROVIDERS: Family Medicine; Internal Medicine; ADMIT Internal Medicine
DX: J10.08 Influenza due to other identified influenza virus with other specified pneumonia (principal); J96.21 Acute and chronic respiratory failure with hypoxia; J15.6 Pneumonia due to other Gram-negative bacteria; N17.9 Acute kidney failure, unspecified; D68.69 Other thrombophilia; Z68.43 Body mass index [BMI] 50.0-59.9, adult; E11.40 Type 2 diabetes mellitus with diabetic neuropathy, unspecified; Z66 Do not resuscitate; Z20.822 Contact with and (suspected) exposure to COVID-19; G47.33 Obstructive sleep apnea (adult) (pediatric); G89.4 Chronic pain syndrome; E87.5 Hyperkalemia; J06.9 Acute upper respiratory infection, unspecified; F41.9 Anxiety disorder, unspecified; I89.0 Lymphedema, not elsewhere classified; E66.01 Morbid (severe) obesity due to excess calories; Z96.641 Presence of right artificial hip joint; Z96.653 Presence of artificial knee joint, bilateral; Z88.5 Allergy status to narcotic agent; Z88.8 Allergy status to other drugs, medicaments and biological substances; Z87.440 Personal history of urinary (tract) infections; Z90.89 Acquired absence of other organs; Z85.3 Personal history of malignant neoplasm of breast; Z86.711 Personal history of pulmonary embolism; Z90.12 Acquired absence of left breast and nipple; Z90.710 Acquired absence of both cervix and uterus; Z79.01 Long term (current) use of anticoagulants; Z79.899 Other long term (current) drug therapy
CPT/HCPCS: 36415; 71045; 71046; 80048; 80053; 82947; 85025; 85610; 92526; 92610; 93005; 93010; 94640; 94664; 94760; 96374; 97110; 97116; 97162; 97166; 97530; 97535; 99285-25; A9270; J1815; J1940; J1956; J2930; U0004

== ENCOUNTER 2022-06-25 12:11 | Emergency (ER) | payer OTHER ==
[~2022-06-25] VITALS: Ht 157.5 cm; Wt 136.1 kg
== END 2022-06-25 14:30 | disposition home or self-care (01) ==
LOC: ER 12:11
DX: S09.90XA Unspecified injury of head, initial encounter (principal); E11.9 Type 2 diabetes mellitus without complications; W19.XXXA Unspecified fall, initial encounter; Z79.899 Other long term (current) drug therapy; Z79.890 Hormone replacement therapy; Z79.01 Long term (current) use of anticoagulants
CPT/HCPCS: 70450

== ENCOUNTER 2022-08-11 11:30 | Emergency (ER) | payer OTHER ==
[~2022-08-11] VITALS: Ht 154.9 cm; Wt 113.4 kg
[2022-08-11 18:03] LABS: BASOPHILS ABSOLUTE AUTO 0.11 K/mm3 (0.00-0.23); BASOPHILS PERCENT AUTO 1 % (0-2); EOSINOPHILS ABSOLUTE AUTO 0.34 K/mm3 (0.00-0.68); EOSINOPHILS PERCENT AUTO 3 % (0-6); Hematocrit 38.6 % (33.0-51.0); Hemoglobin 11.9 g/dL (11.5-16.0); IMMATURE GRAN ABSOLUTE AUTO 0.09 K/mm3 (0.00-0.10); IMMATURE GRAN PERCENT AUTO 1 % (0-1); LYMPHOCYTES ABSOLUTE AUTO 4.65 K/mm3 (0.84-5.20); LYMPHOCYTES PERCENT AUTO 39 % (21-46); MONOCYTES ABSOLUTE AUTO 1.29 K/mm3 (0.16-1.47); MONOCYTES PERCENT AUTO 11 % (4-13); Mean Corpuscular HGB 27.4 pg (26.0-34.0); Mean Corpuscular HGB Conc 30.8 g/dL (31.5-36.5); Mean Corpuscular Volume 89 fL (80-100); Mean Platelet Volume 9.2 fL (9.1-12.4); NEUTROPHILS ABSOLUTE AUTO 5.39 K/mm3 (1.96-9.15); NEUTROPHILS PERCENT AUTO 45 % (41-73); Platelet Count 344 K/mm3 (150-400); RDW Coefficient Variation 18.6 % (11.7-14.2); RDW Standard Deviation 60.3 fL (35.1-46.3); Red Blood Cell Count 4.34 M/mm3 (3.80-5.20); White Blood Cell Count 11.87 K/mm3 (4.00-11.30)
[2022-08-11 18:51] LABS: Albumin, Blood 2.9 g/dL (3.4-5.0); Albumin/Globulin Ratio 0.7 (0.8-1.8); Bilirubin, Total 0.3 mg/dL (0.1-1.0); Bun/Creatinine Ratio 19.9 (12.0-20.0); Calcium, Blood 8.6 mg/dL (8.5-10.1); Creatinine, Blood 0.85 mg/dL (0.40-1.00); Globulin, Blood 4.3 g/dL (2.2-4.0); Potassium, Blood 6.2 mmol/L (3.5-5.5); Total Protein, Blood 7.2 g/dL (6.4-8.2)
[2022-08-11] MEDS ORDERED: CEPH500 PO (19:57)
[2022-08-11] MEDS ORDERED: SULTRIDS PO (19:57)
== END 2022-08-11 19:59 | disposition home or self-care (01) ==
LOC: ER 11:30
PROVIDERS: Student in an Organized Health Care Education/Training Program
DX: L03.314 Cellulitis of groin (principal); E87.5 Hyperkalemia; E11.9 Type 2 diabetes mellitus without complications; I10 Essential (primary) hypertension; Z88.5 Allergy status to narcotic agent; Z88.6 Allergy status to analgesic agent; Z79.899 Other long term (current) drug therapy; Z79.01 Long term (current) use of anticoagulants
CPT/HCPCS: 36415; 72193; 80053; 85025; 93005; 93010; 96374-59; 96375; 99284-25; A9270; J1815; J1940; J7030; J7799; Q9967

== ENCOUNTER → 2022-10-04 | Outpatient (CLI) | payer OTHER ==
[~2022-10-04] MED LIST changes: +SULTRIDS PO
[2022-10-04 14:34] LABS: Candida species (DNA Probe) Negative (NEGATIVE); G. vaginalis (DNA Probe) Positive (NEGATIVE); T. vaginalis (DNA Probe) Negative (NEGATIVE)
== END | disposition home or self-care (01) ==
LOC: LAB SHORT 11:08
PROVIDERS: Obstetrics & Gynecology
DX: N76.0 Acute vaginitis (principal)
CPT/HCPCS: 87480; 87510; 87660

== ENCOUNTER 2022-11-09 11:17 | Inpatient (IN) | payer OTHER ==
[~2022-11-09] VITALS: Ht 154.9 cm; Wt 113.2 kg
[2022-11-09 12:39] LABS: BASOPHILS ABSOLUTE AUTO 0.11 K/mm3 (0.00-0.23); BASOPHILS PERCENT AUTO 1 % (0-2); EOSINOPHILS ABSOLUTE AUTO 0.36 K/mm3 (0.00-0.68); EOSINOPHILS PERCENT AUTO 3 % (0-6); Hematocrit 41.6 % (33.0-51.0); Hemoglobin 12.7 g/dL (11.5-16.0); IMMATURE GRAN PERCENT AUTO 1 % (0-1); LYMPHOCYTES ABSOLUTE AUTO 3.47 K/mm3 (0.84-5.20); LYMPHOCYTES PERCENT AUTO 26 % (21-46); MONOCYTES ABSOLUTE AUTO 1.08 K/mm3 (0.16-1.47); MONOCYTES PERCENT AUTO 8 % (4-13); Mean Corpuscular HGB 25.6 pg (26.0-34.0); Mean Corpuscular HGB Conc 30.5 g/dL (31.5-36.5); Mean Corpuscular Volume 84 fL (80-100); Mean Platelet Volume 9.5 fL (9.1-12.4); NEUTROPHILS ABSOLUTE AUTO 8.33 K/mm3 (1.96-9.15); NEUTROPHILS PERCENT AUTO 62 % (41-73); NRBC ABSOLUTE 0.02 K/mm3 (0.00-0.02); NRBC Auto 0.1 /100 WBC (0.0-0.2); Platelet Count 300 K/mm3 (150-400); RDW Coefficient Variation 17.3 % (11.7-14.2); Red Blood Cell Count 4.97 M/mm3 (3.80-5.20); White Blood Cell Count 13.45 K/mm3 (4.00-11.30)
[2022-11-09 13:00] LABS: Albumin, Blood 3.3 g/dL (3.4-5.0); Albumin/Globulin Ratio 0.8 (0.8-1.8); Bilirubin, Total 0.6 mg/dL (0.1-1.0); Bun/Creatinine Ratio 15.6 (12.0-20.0); Calcium, Blood 8.5 mg/dL (8.5-10.1); Creatinine, Blood 0.83 mg/dL (0.40-1.00); Globulin, Blood 4.4 g/dL (2.2-4.0); Potassium, Blood 4.3 mmol/L (3.5-5.5); Total Protein, Blood 7.7 g/dL (6.4-8.2)
[2022-11-09 13:50] LABS: Source, Urine Foley catheter
[2022-11-09 14:20] LABS: Appearance, Urine Cloudy (Clear); Bilirubin, Urine Neg (Neg); Blood, Urine 5+ (Neg); Color, Urine Yellow (P-Yellow); Glucose Qualitative, Urine Neg (Neg); Ketones, Urine 1+ (Neg); Leukocyte Esterase, Urine 3+ (Neg); Nitrite, Urine Pos (Neg); Protein, Urine 2+ (Neg); Specific Gravity, Urine 1.015 (1.003-1.022); Urobilinogen, Urine NORM (Normal); pH, Urine 6.5 (5.0-8.0)
[2022-11-09 14:57] LABS: Amorphous Heavy (0-Heavy); Bacteria Many /hpf; Mucus Light (0-Heavy); Transitional Epithelial Cells Few /hpf (0-Rare)
[2022-11-09 14:58] LABS: Squamous Epithelial Cells Rare /hpf (Few); White Blood Cells, Urine 25-50 /hpf (0-5)
[2022-11-09] MEDS ORDERED: HYDHCL25 PO (15:38)
[2022-11-09] MEDS ORDERED: VALA500 PO (15:39)
--- NOTE | 2022-11-09 16:30 | NUR ---
ASSUMED CARE: PT ARRIVED FROM ED ON 2L O2 VIA NC. PT WAS SCREAMING WHEN STAFF MOVED HER FROM BED TO [facility]. STAFF ATTEMPTED TO EXPLAIN THAT WE WERE TURNING HER TO GET OLD LINENS OUT AND TO DO A SKIN CHECK. PT THEN EXPLAINED THAT HER SHOULDER HURT FROM AN INJURY BACK IN AUGUST. STATED THAT WE WERE A HOSPITAL AND WE SHOULD ALREADY KNOW ALL OF HER HISTORY. ADVISED HER TO NOT ASSUME THAT WE KNOW HER MEDICAL HISTORY AND TO ENSURE THAT SHE TELL US EVERYTHING SHE THINKS WE SHOULD KNOW. PT THEN ANSWERED ORIENTING QUESTIONS APPROPRIATELY BUT WAS VISIBLY IRRITATED. PT THEN STOPPED TALKING AND WHEN STAFF ASKED WHAT WAS WRONG PT SAID, "I'M SORRY I THOUGHT I WAS SUPPOSED TO BE QUIET." FURTHER ATTEMPT TO DE-ESCALATE PATIENT, RESULTING IN PT SITTING QUIETLY IN BED WITH EYES CLOSED AND NOT TALKING TO STAFF. NEW SPLIT GUAZE APPLIED TO SP CATHETER DUE TO SMELLY AND SATURATED PAD IN PLACE. CALL LIGHT IN REACH.
[2022-11-09 16:49] VITALS: BP 140/73
--- NOTE | 2022-11-09 18:26 | NUR ---
DR JUNIOR CAME TO BEDSIDE AND STATED THAT PT IS DNR. CALLED STAFF TO VERIFY MED LIST. CALL TO [facility] TO SEND MED LIST
--- NOTE | 2022-11-09 19:15 | NUR ---
SHIFT SUMMARY: PT RESTING ON 2L AT THIS TIME. ASSOCIATE THEATRE PROFESSOR AT BEDSIDE PLACING TELE NOW. DNR BAND IN PLACE. AWAITING FAX FROM PT'S HOME PHARMACY FOR MED REC. NO FURTHER NEEDS AT THIS TIME.
[2022-11-09 19:59] VITALS: BP 130/94
[2022-11-09 22:14] LABS: International Normalized Ratio 2.49; Prothrombin Time Results 24.8 Sec (9.7-11.5)
--- NOTE | 2022-11-09 22:47 | NUR ---
DR JUNIOR CALLED AND REPORTS REVIEWING HOME MEDICATIONS AND PLACING ORDERS. ALSO REPORTED DOING A STAT PT/INR LAB AND TO CALL WITH RESULTS. DONE AND LABS CALLED IN. PHARMACIST JOSE REPORTS WILL CALL ABOUT COUMADIN.
--- NOTE | 2022-11-09 22:51 | NUR ---
DR PALACIOS CALLED AND REPORTS WILL PLACE ORDERS FOR TOPICAL MEDICATION WITH DIRECTIONS FOR SKIN FOLDS AND LABIA.
--- NOTE | 2022-11-10 03:22 | NUR ---
TELE MONITOR REPORTS FEW SECONDS OF SVT 156 AND BACK TO NSR [address] STRIP IN CHART. WILL CONTINUE TO MONITOR.
[2022-11-10 03:33] VITALS: BP 145/130
--- NOTE | 2022-11-10 04:17 | NUR ---
SHIFT SUMMARY NEW ORDERS FROM DR JUNIOR AND DR PALACIOS. PATIENT AXOX 3 AND IRRITABLE T/O SHIFT REPORTING SHE DOESN'T WANT TO BE BOTHERED OR HELPED MOST OF THE TIME. BEDREST. SUPRA PUBIC CATHETER INTACT AND DRAINING TO GRAVITY. PIV REMAIN INTACT. IV ABX INFUSED. TELE MONITOR REPORTED ONE EVENT SVT 156 FOR A FEW SECONDS AND BACK TO NSR 71. DENIES CHEST PAIN, SOB, AND N/V. ON 3L O2 NC. AFEBRILE. RESTED MOST OF THE SHIFT. CALL LIGHT IN REACH. BED IN LOWEST POSITION. WILL CONTINUE TO MONITOR UNTIL DAY SHIFT NURSE ASSUMES CARE.
[2022-11-10 05:34] LABS: BASOPHILS ABSOLUTE AUTO 0.09 K/mm3 (0.00-0.23); BASOPHILS PERCENT AUTO 1 % (0-2); EOSINOPHILS ABSOLUTE AUTO 0.34 K/mm3 (0.00-0.68); EOSINOPHILS PERCENT AUTO 3 % (0-6); Hematocrit 39.3 % (33.0-51.0); Hemoglobin 12.2 g/dL (11.5-16.0); IMMATURE GRAN ABSOLUTE AUTO 0.08 K/mm3 (0.00-0.10); IMMATURE GRAN PERCENT AUTO 1 % (0-1); LYMPHOCYTES ABSOLUTE AUTO 3.27 K/mm3 (0.84-5.20); LYMPHOCYTES PERCENT AUTO 25 % (21-46); MONOCYTES ABSOLUTE AUTO 1.09 K/mm3 (0.16-1.47); MONOCYTES PERCENT AUTO 8 % (4-13); Mean Corpuscular HGB 25.8 pg (26.0-34.0); Mean Corpuscular Volume 83 fL (80-100); Mean Platelet Volume 9.9 fL (9.1-12.4); NEUTROPHILS ABSOLUTE AUTO 8.09 K/mm3 (1.96-9.15); NEUTROPHILS PERCENT AUTO 63 % (41-73); Platelet Count 309 K/mm3 (150-400); RDW Coefficient Variation 17.1 % (11.7-14.2); Red Blood Cell Count 4.72 M/mm3 (3.80-5.20); White Blood Cell Count 12.96 K/mm3 (4.00-11.30)
[2022-11-10 05:51] LABS: International Normalized Ratio 2.48; Prothrombin Time Results 24.7 Sec (9.7-11.5)
[2022-11-10 05:57] LABS: Bun/Creatinine Ratio 14.9 (12.0-20.0); Calcium, Blood 8.1 mg/dL (8.5-10.1); Creatinine, Blood 0.94 mg/dL (0.40-1.00); Potassium, Blood 4.1 mmol/L (3.5-5.5)
[2022-11-10 07:32] VITALS: BP 151/77
[2022-11-10 14:37] VITALS: BP 121/79
--- NOTE | 2022-11-10 15:31 | NUR ---
PLAN TO ATTEMPT TO WEAN PT OFF O2 PER DR. JUNIOR VERBAL ORDERS
--- NOTE | 2022-11-10 17:36 | NUR ---
SHIFT SUMMARY PT A&OX4 AND IN PLEASENT MOOD T/O SHIFT. PLAN TO MOVE TO 325 (LIFT ROOM) PER PHYSICAL THERAPY. VSS. PAIN MEDICATED PER EMAR. SPOUSE IN TO SEE PT T/O SHIFT. CALL LIGHT W/IN REACH. BED BATH THIS SHIFT.
[2022-11-10 20:22] VITALS: BP 128/77
[2022-11-11] VITALS (8 sets, daily range): BP systolic 93–122; BP diastolic 50–72
--- NOTE | 2022-11-11 04:20 | NUR ---
SHIFT SUMMARY; NO ACUTE CHANGES OVERNIGHT. THE PT IS AXO X4 W/ SOME MILD BEHAVIORAL OUTBURST. PT WAS UPSET AT DIFFERENT STAFF T/O THE NIGHT. THE PT HAS BEEN ABLE TO SLEEP THE MAJORITY OF THE NIGHT. THE PT HAS 2L NC, PER DAYSHIFT THE PT WAS HAVING SINUS ARRYTHMIAS PRIOR TO HAVING 2L NC PUT ON. THE PT HAS BEEN SINUS IN THE 60'S W/PVC'S, PAC'S AND A BBB THIS EVENING. THE PTS INDWELLING CATHETER IS PATENT AND DRAINING TO GRAVITY. THE PT DENIES ANY SOB, PAIN, CHEST PAIN/PRESSURE OR N/V. CURRENTLY THE PT IS SLEEPING IN BED WITH THE BED IN THE LOWEST POSITION AND THE CALL LIGHT AT BEDSIDE.
[2022-11-11 05:16] LABS: International Normalized Ratio 2.42; Prothrombin Time Results 24.2 Sec (9.7-11.5)
--- NOTE | 2022-11-11 13:02 | NUR ---
DR. LING NOTIFIED AT 1300 BY TELEPHONE OF PATIENT'S 5 SECOND RUN OF SVT'S. [employer] NOTIFIED THIS RN WHO IN TURN CALLED DR. JUNIOR. PATIENT WAS ASYMPTOMATIC AT THE TIME.
--- NOTE | 2022-11-11 17:56 | NUR ---
PATIENT IS ALERT AND ORIENTED. SHE CAN BE IRRITABLE AND DEFENSIVE AT TIMES. TELE IN PLACE. SUPRAPUBIC CATHETER IN PLACE, CATHETER CARE AND RADHA CARE PROVIDED THIS AFTERNOON. PATIENT C/O RIGHT SHOULDER PAIN, MEDICATED PER EMAR. PATIENT WORKED WITH OT THIS AM AND TRANSFERRED TO THE RECLINER WHERE SHE SAT FOR A COUPLE HOURS. PATIENT DID NOT WORK MEANINGFULLY WITH PT. THE PATIENT'S HAS BEEN AT THE BEDSIDE ON AND OFF TODAY. HER BP HAS BEEN SOFT THIS AFTERNOON BUT HER MAP HAS BEEN ABOVE 65. THE PATIENT STARTED THE SHIFT ON 2L O2 VIA NC. O2 TITRATION WAS ATTEMPTED BUT HER OXYGEN SATURATIONS DROPPED TO 85% ON RA. ONCE SHE WOKE UP FROM A NAP THE PATIENT WAS REQUIRING UP TO 6L O2 VIA NC. SWITCHED TO 5L O2 VIA OXYMIZER THIS AFTERNOON WITH O2 SATURATIONO OF 93%.
--- NOTE | 2022-11-11 22:30 | NUR ---
Tele called pts pulse dropped down for 30 sec to 39 then back up to 70. pt Blood presuers have bee in the 90s/ the last was 107/ Lisinopril held MD aware.
[2022-11-12] VITALS (16 sets, daily range): BP systolic 85–155; BP diastolic 48–97
--- NOTE | 2022-11-12 03:02 | NUR ---
SHIFT SUMMERY, PT MOANING AND CRYING OUT IN PAIN. PT C/O PAIN TO FEET. ICE PACK APPLYED PT SIS NOT WANT HEATING PAD, PT DID NOT WANT. COVERING REMOVED FOR FEET. MEDS GIVEN , LIGHTS TURNED OFF AND PT FELL ASLEEP. CALL LIGHT IN REACH. TELE DARIA CALLED A FEW TIMES DURING SHIFT AND SHIFT CHANGE PTS HR DROPPED IN THE 30S BUT THEN WOULD GO BACK UP. PTS BPS DURING DAYS HAD SEVERAL 90 FOR SYSTOLIC, LISINOPRIL HELD AND DR WAS CALLED ABOUT LOW PUSE.
[2022-11-12 06:24] LABS: International Normalized Ratio 2.11; Prothrombin Time Results 21.2 Sec (9.7-11.5)
[2022-11-12 12:03] LABS: BASOPHILS ABSOLUTE AUTO 0.08 K/mm3 (0.00-0.23); BASOPHILS PERCENT AUTO 1 % (0-2); EOSINOPHILS ABSOLUTE AUTO 0.48 K/mm3 (0.00-0.68); EOSINOPHILS PERCENT AUTO 4 % (0-6); Hematocrit 35.7 % (33.0-51.0); Hemoglobin 11.1 g/dL (11.5-16.0); IMMATURE GRAN ABSOLUTE AUTO 0.05 K/mm3 (0.00-0.10); IMMATURE GRAN PERCENT AUTO 0 % (0-1); LYMPHOCYTES ABSOLUTE AUTO 3.18 K/mm3 (0.84-5.20); LYMPHOCYTES PERCENT AUTO 27 % (21-46); MONOCYTES ABSOLUTE AUTO 0.95 K/mm3 (0.16-1.47); MONOCYTES PERCENT AUTO 8 % (4-13); Mean Corpuscular HGB 25.9 pg (26.0-34.0); Mean Corpuscular HGB Conc 31.1 g/dL (31.5-36.5); Mean Corpuscular Volume 83 fL (80-100); Mean Platelet Volume 9.7 fL (9.1-12.4); NEUTROPHILS ABSOLUTE AUTO 6.98 K/mm3 (1.96-9.15); NEUTROPHILS PERCENT AUTO 60 % (41-73); Platelet Count 319 K/mm3 (150-400); RDW Coefficient Variation 17.2 % (11.7-14.2); Red Blood Cell Count 4.29 M/mm3 (3.80-5.20); White Blood Cell Count 11.72 K/mm3 (4.00-11.30)
[2022-11-12 12:13] LABS: Albumin, Blood 2.9 g/dL (3.4-5.0); Albumin/Globulin Ratio 0.7 (0.8-1.8); Bilirubin, Total 0.3 mg/dL (0.1-1.0); Bun/Creatinine Ratio 17.2 (12.0-20.0); Calcium, Blood 7.9 mg/dL (8.5-10.1); Creatinine, Blood 1.57 mg/dL (0.40-1.00); Magnesium, Blood 2.1 mg/dL (1.6-2.4); Potassium, Blood 4.1 mmol/L (3.5-5.5); Total Protein, Blood 6.9 g/dL (6.4-8.2)
--- NOTE | 2022-11-12 16:02 | NUR ---
PATIENT IS ALERT AND ORIENTED AND COOPERATIVE WITH CARE. THIS MORNING THE PATIENT WAS HYPOTENSIVE WITH EPISODES OF BRADYCARDIA ACCORDING TO THE MILEAGE CLERK. MANUAL BP'S WERE CHECKED. DR. JUNIOR SAW THE PATIENT AT THE BEDSIDE AND ORDERED LABS THEN ORDERED ONE LITER OF NS BE INFUSED AT 125 ML/HR. PATIENT HAS BEEN ENCOURAGED TO DRINK WATER. JOHNSON IS DRAINING. SHE HAS POOR URINE OUTPUT. PATIENT'S LATEST VITALS SHOW A BP OF 107/62 AND PULSE OF 75 BPM. PATIENT SAT UP IN THE RECLINER FOR BREAKFAST. PATIENT IS WEARING 4L O2 VIA OXYMIZER. WILL CONTINUE TO MONITOR
--- NOTE | 2022-11-12 17:43 | NUR ---
RN CHECKED PATIENT'S VITALS AT [address] JUNIOR OVER THE PHONE OF THE RESULTS WHICH INCLUDED A HR OF [address] JUNIOR WAS INFORMED THAT AT THE TIME OF THE MANUAL PULSE RATE, TELEMETRY SHOWED A HR OF [address] JUNIOR ALSO NOTIFIED THAT THE TRADEMARK ATTORNEY REPORTED A NINE SECOND RUN OF SVT RIGHT BEFORE SHE WENT INTO SR [address] JUNIOR ORDERED THE IV FLUIDS BE DISCONTINUED AND TELEMETRY BE DISCONTINUED. THIS RN ASKED DR. JUNIOR WHAT HE WANTS TO DO ABOUT THE HR OF 39 BPM AND HE SAID NOTHING NEEDS TO BE DONE AND THAT THE METOPROLOL NEEDS TIME TO LEAVE THE PATIENT'S SYSTEM. THIS RN NOTIFIED THE [employer] OF THIS CONVERSATION.
--- NOTE | 2022-11-12 18:13 | NUR ---
DR. JUNIOR CALLED BY THIS RN OVER THE PHONE TO DISCUSS CONCERNS ABOUT THE PATIENT'S HR BEING 39 BPM. THE CONCERNS BROUGHT TO HIS ATTENTION INCLUDE 1. TELEMETRY SHOWS A HRR OF 78 BPM WHILE A MANUAL PULSE SHOWS 39 BPM. HIS THOUGHTS ON THIS WERE THAT PERHAPS TELEMETRY IS ABLE TO DETECT HER HR WHICH MIGHT BE TOO SOFT TO FEEL MANUALLY. THE SECOND CONCERN WAS THAT EVEN THOUGH TELEMETRY SHOWED HER HR DROPPING FROM 60'S TO 40'S BREIFLY, IT WAS NEVER STEADILY IN THE 40'S LIKE IT IS NOW (MANUALLY) AND ON THE VITALS MACHINE IN THE PATIENT'S ROOM. DR. JUNIOR SAID THAT HIS BIGGEST CONCERN IS THAT THE PATIENT'S BLOOD PRESSURE AND MENTATION ARE NORMAL WHICH THEY HAVE BEEN AND THAT LONG THEY STAY NORMAL HE IS NOT CONCERNED WITH HER HR BEING [address] JUNIOR SAID TELEMETRY CAN STAY ON THE PATIENT TO APEASE THE RN WHICH I WILL DO. RETAIL WAREHOUSE SUPERVISOR NOTIFIED OF THIS CONVERSATION
--- NOTE | 2022-11-12 23:44 | NUR ---
THIS STUDENT NURSE ASSUMED CARE OF PT AT 1900 UNDER THE OBSERVATION OF NURSE INGRID GARCIA. PT FAMILY MEMBER AT BEDSIDE. PT A&OX4. PT VSS. HS MEDICATIONS ADMINISTERED AND TOLERATED BY PT. RADHA CARE PERFORMED WITH WET END HELPER OR INGRID GARCIA PRESENT. PT LEFT IN A POSITION OF COMFORT AND SAFETY WITH BED LOCKED AND IN LOW POSITION, 3-4 BED RAILS RAISED PER PT'S VERBAL REQUEST, NONSKID SOCKS IN PLACE, ROOM FREE OF DEBRIS, AND CALL LIGHT WITHIN REACH. WILL CONTINUE TO MONITOR.
--- NOTE | 2022-11-13 04:26 | NUR ---
SHIFT SUMMARY THIS STUDENT NURSE ADDRESSED THE PT'S INFECTION THROUGH THE ADMINISTRATION OF THE PRESCRIBED ROCEPHIN. MONITORED FOR S/S OF INFECTION DURING MY SHIFT. RADHA CARE PERFORMED ON SUPRAPUBIC CATHETER. POWDER APPLIED TO GROIN TO PREVENT SKIN BREAKDOWN. PT SLEPT MOST OF THE NIGHT. PT A&OX4. PT VSS. PT REMAINED IN A POSITION OF COMFORT AND SAFETY WITH BED LOCKED AND IN LOW POSITION, 4 RAILS PER PT VERBAL REQUEST, NONSKID SOCKS IN PLACE, ROOM CLEAR OF DEBRIS, AND CALL LIGHT WITHIN REACH. WILL CONTINUE TO MONITOR.
[2022-11-13 04:36] VITALS: BP 118/52
[2022-11-13 04:37] VITALS: BP 118/52
--- NOTE | 2022-11-13 04:56 | NUR ---
I HAVE OBSERVED/ASSISTED STUDENT WITH PT CARE AND READ HER DOCUMENTATION OF SUCE. I AGREE WITH THE ABOVE.
[2022-11-13 05:27] LABS: International Normalized Ratio 2.08
[2022-11-13 07:31] VITALS: BP 134/67
[2022-11-13 15:29] VITALS: BP 105/61
--- NOTE | 2022-11-13 16:37 | NUR ---
SHIFT SUMMARY: Pt remains A&O X3 this shift. Right shoulder and left foot/toe pain managed with Tylenol, anxiety managed with Atarax X1 this am. VSS. Per tele, episodes of bradycardia in 40s @ 1420. Pt asymptomatic. Respirations even nonlabored. 02 sat 90-92% with oxygen at 3L NC from 5L nc this am. Pt up to BSC with max ast for BM X2 today. Pt resting comfortably in bed now. Will continue to monitor this shift.
[2022-11-13 16:55] VITALS: BP 144/71
--- NOTE | 2022-11-13 17:11 | NUR ---
SHIFT SUMMARY: A&O x3 pre/post EGD. Abdominal pain managed with po Stryker, nausea managed with IV Zofran. On CLD post EGD 1550, then advance as tolerated per orders. Pt with nausea after some broth, jello and water. Zofran given. Cream applied under malorie breast as ordered. No further needs at this time. Will report to [facility] secondary to low census.
--- NOTE | 2022-11-13 17:33 | NUR ---
LATE ENTRY/1710 AFTER RECEIVING REPORT FROM OFF GOING RN, ASSUMED CARE OF PT UNTIL END OF SHIFT TODAY.
[2022-11-13 19:59] VITALS: BP 148/70
--- NOTE | 2022-11-14 03:52 | NUR ---
JAVASCRIPT PROGRAMMER SUMMARY VSS. TALKATIVE AT SHIFT COMMENCE AND ASSESSMENT. LUNG SOUNDS DIMINISHED PER AUSCULTATION. MED TELE SINUS GAETANO IN THE 50'S. O2 PER NC AT 3L/MIN. REQUESTED AND FEMALE RN APPLIED LIDOCAINE JELLY TO GENITAL HERPES. HAS BEEN RESTING QUIETLY WITH FEW INTERRUPTIONS. HOB ELEVATED FOR COMFORT. CALL LIGHT IN REACH. RAILS UP X 2 FOR SAFETY. WILL CONTINUE TO MONITOR
[2022-11-14 04:57] LABS: International Normalized Ratio 1.84; Prothrombin Time Results 18.7 Sec (9.7-11.5)
[2022-11-14 05:20] VITALS: BP 162/74
[2022-11-14 07:40] VITALS: BP 149/67
[2022-11-14 10:11] VITALS: BP 115/57
--- NOTE | 2022-11-14 10:20 | NUR ---
Recieved a call from tele- Pt had a 3 sec run of SVT. When assessed the pt seemed to be breathing more rapidly, but denies sob. Vitals checked and are wnl. Called dr Otero and recieved an order for ekg.
[2022-11-14 16:55] VITALS: BP 151/80
[2022-11-14 19:14] VITALS: BP 129/70
--- NOTE | 2022-11-14 20:05 | NUR ---
SHIFT SUMMARY- BEDSIDE REPORT COMPLETED WITH NIGHT RN, PT IN BED, CALL LIGHT IN REACH NO S&S OF DISTRESS AT THE TIME OF BEDSIDE REPORT. PT HAS HAD NO ACUTE CHANGE T/O THE SHIFT, SHE WAS WILLING TO WORK WITH THERAPIES. PT WAS DECLINING TO GO TO SNF. TODAY SHE CHANGED HER MIND AND TOLD STAFF SHE IS WILLING TO GO TO REHAB. CARE MANAGEMENT IS INVOLVED AND IS ASSISTING IN DISCHARGE PLANNING. BEDSIDE REPORT COMPLETED.
[2022-11-15 04:52] VITALS: BP 142/68
[2022-11-15 05:09] LABS: BASOPHILS ABSOLUTE AUTO 0.07 K/mm3 (0.00-0.23); BASOPHILS PERCENT AUTO 1 % (0-2); EOSINOPHILS ABSOLUTE AUTO 0.48 K/mm3 (0.00-0.68); EOSINOPHILS PERCENT AUTO 6 % (0-6); Hematocrit 33.2 % (33.0-51.0); Hemoglobin 10.2 g/dL (11.5-16.0); IMMATURE GRAN ABSOLUTE AUTO 0.05 K/mm3 (0.00-0.10); IMMATURE GRAN PERCENT AUTO 1 % (0-1); LYMPHOCYTES ABSOLUTE AUTO 2.31 K/mm3 (0.84-5.20); LYMPHOCYTES PERCENT AUTO 28 % (21-46); MONOCYTES ABSOLUTE AUTO 0.89 K/mm3 (0.16-1.47); MONOCYTES PERCENT AUTO 11 % (4-13); Mean Corpuscular HGB 25.1 pg (26.0-34.0); Mean Corpuscular HGB Conc 30.7 g/dL (31.5-36.5); Mean Corpuscular Volume 82 fL (80-100); Mean Platelet Volume 9.4 fL (9.1-12.4); NEUTROPHILS ABSOLUTE AUTO 4.58 K/mm3 (1.96-9.15); NEUTROPHILS PERCENT AUTO 55 % (41-73); Platelet Count 301 K/mm3 (150-400); RDW Coefficient Variation 17.1 % (11.7-14.2); RDW Standard Deviation 51.1 fL (35.1-46.3); Red Blood Cell Count 4.06 M/mm3 (3.80-5.20); White Blood Cell Count 8.38 K/mm3 (4.00-11.30)
[2022-11-15 05:28] LABS: International Normalized Ratio 1.92; Prothrombin Time Results 19.4 Sec (9.7-11.5)
[2022-11-15 05:56] LABS: Bun/Creatinine Ratio 15.6 (12.0-20.0); Calcium, Blood 8.1 mg/dL (8.5-10.1); Creatinine, Blood 0.77 mg/dL (0.40-1.00); Potassium, Blood 3.9 mmol/L (3.5-5.5)
[2022-11-15 07:27] VITALS: BP 150/77
[2022-11-15 10:41] LABS: Influenza A, PCR NEGATIVE (NEGATIVE); Influenza B, PCR NEGATIVE (NEGATIVE); Resp Syncytial Virus, PCR NEGATIVE (NEGATIVE); SARS-Cov-2 (COVID-19) PCR, MMC NEGATIVE (NEGATIVE)
--- NOTE | 2022-11-15 11:48 | NUR ---
PT O2 TITRATED DOWN- PT O2 SATS MAINTAINING AFTER LAST TITRATION TO 4L. O2 SATS CURRENTLY AT 97% ON VL VIA NC. CONTACTED RT FREDIS, SHE IS AWARE O2 TITRATED TO 2L VIA NC AT THIS TIME, SATS MONITORED ON CONT BIOX.
--- NOTE | 2022-11-15 12:48 | NUR ---
O2 TITRATION- WENT IN TO TITRATE PT O2 SATS WERE MAINTAINING AT 94% ON 2L WHILE AWAKE, BUT PT HAD FALLEN ASLEEP SITTING UPRIGHT IN BED AND HER SATS DROPPED TO 86-88% ON 2L. HAD SPOKEN TO DR FAJARDO ABOUT THE O2 AND THE TITRATION PLAN AND THE ORDER WAS TO MAINTAIN SATS GREATER THAN 90%. INCREASED O2 TO 3L VIA NC AND SATS INCREASED TO 90%. WHEN PT WOKE HER SATS WENT UP TO 94%. CALLED DR FAJARDO HE IS AWARE THE PT O2 IS CURRENTLY AT 3L VIA NC AND THIS MAY BE LOW IT CAN GO, THE PT DRIFTS OFF TO SLEEP OFTEN.
[2022-11-15 15:33] VITALS: BP 149/97
--- NOTE | 2022-11-15 18:02 | NUR ---
DISCHARGE NOTE- PT WAS DISCHARGED TO [facility]. SHE WAS TAKEN BY WC TRANSPORT. CALLED REPORT TO EMA MERIDA AT [facility], PT WAS ON 3L NC AT THE TIME OF DISCHARGE. NO S&S OF DISTRESS AT THE TIME OF DISCHARGE. SPOUSE WAS PRESENT AT THE TIME OF DISCHARGE. IV AND TELE DC'D BY THE PICKER / PACKER PRIOR TO DISCHARGE.
== END 2022-11-15 17:47 | DRG 193 ==
LOC: ER 11:17 → MEDS 11:18 → ENPENDDIS 11-15 12:35 → MEDS 11-15 17:47
PROVIDERS: Emergency Medicine; Internal Medicine; ADMIT Internal Medicine
PROC: 0T9B70Z Drainage of Bladder with Drainage Device, Via Natural or Artificial Opening (ICD-10-PCS; principal; 2022-11-09)
DX: J18.9 Pneumonia, unspecified organism (principal); J96.01 Acute respiratory failure with hypoxia; T83.510A Infection and inflammatory reaction due to cystostomy catheter, initial encounter; N39.0 Urinary tract infection, site not specified; Z68.42 Body mass index [BMI] 45.0-49.9, adult; Z20.822 Contact with and (suspected) exposure to COVID-19; Z66 Do not resuscitate; M19.90 Unspecified osteoarthritis, unspecified site; E66.01 Morbid (severe) obesity due to excess calories; E78.5 Hyperlipidemia, unspecified; N18.32 Chronic kidney disease, stage 3b; I45.10 Unspecified right bundle-branch block; E11.22 Type 2 diabetes mellitus with diabetic chronic kidney disease; I12.9 Hypertensive chronic kidney disease with stage 1 through stage 4 chronic kidney disease, or unspecified chronic kidney disease; I49.9 Cardiac arrhythmia, unspecified; B96.89 Other specified bacterial agents as the cause of diseases classified elsewhere; E03.9 Hypothyroidism, unspecified; S31.40XA Unspecified open wound of vagina and vulva, initial encounter; M1A.9XX0 Chronic gout, unspecified, without tophus (tophi); Z85.3 Personal history of malignant neoplasm of breast; Z79.890 Hormone replacement therapy; Z79.2 Long term (current) use of antibiotics; Z90.89 Acquired absence of other organs; Z90.710 Acquired absence of both cervix and uterus; Z96.652 Presence of left artificial knee joint; Z90.722 Acquired absence of ovaries, bilateral; Z90.12 Acquired absence of left breast and nipple; Z96.0 Presence of urogenital implants; Z86.711 Personal history of pulmonary embolism; Z88.5 Allergy status to narcotic agent; Z88.8 Allergy status to other drugs, medicaments and biological substances; Z79.899 Other long term (current) drug therapy
CPT/HCPCS: 0241U; 36415; 71045; 80048; 80053; 81001; 82947; 83605; 83735; 83880; 84484; 85025; 85610; 87040; 87077; 87086; 87186; 93005; 93010; 94640; 94664; 94760; 94762; 96365; 96367; 96375; 97110; 97162; 97166; 97530; 97535; 99285-25; A9270; G0378; J0456; J0696; J1650; J1940; J7030; J7050

== ENCOUNTER → 2023-03-29 | Outpatient (CLI) | payer OTHER ==
[~2023-03-29] MED LIST changes: +HYDHCL25 PO; +VALA500 PO
[2023-03-29 15:03] LABS: Source, Urine Foley catheter
[2023-03-29 16:49] LABS: Appearance, Urine Clear (Clear); Bilirubin, Urine Neg (Neg); Blood, Urine 5+ (Neg); Glucose Qualitative, Urine Neg (Neg); Ketones, Urine Neg (Neg); Leukocyte Esterase, Urine 3+ (Neg); Nitrite, Urine Neg (Neg); Protein, Urine Neg (Neg); Urobilinogen, Urine NORM (Normal); pH, Urine 6.5 (5.0-8.0)
[2023-03-29 17:01] LABS: Color, Urine Pale Yellow (P-Yellow); White Blood Cells, Urine 50-100 /hpf (0-5)
[2023-03-29 17:02] LABS: Bacteria Mod /hpf; Squamous Epithelial Cells Not Seen /hpf (Few)
== END ==
LOC: LAB 15:01 → LAB SHORT 15:01
PROVIDERS: Advanced Practice Midwife
DX: R32 Unspecified urinary incontinence (principal)
CPT/HCPCS: 81001; 87077; 87086; 87186

== ENCOUNTER → 2023-05-24 | Outpatient (CLI) | payer OTHER ==
[2023-05-24 16:21] LABS: Hematocrit 44.5 % (33.0-51.0); Hemoglobin 14.2 g/dL (11.5-16.0); Mean Corpuscular HGB 26.8 pg (26.0-34.0); Mean Corpuscular HGB Conc 31.9 g/dL (31.5-36.5); Mean Corpuscular Volume 84 fL (80-100); Mean Platelet Volume 10.2 fL (9.1-12.4); Platelet Count 298 K/mm3 (150-400); RDW Coefficient Variation 19.9 % (11.7-14.2); RDW Standard Deviation 59.9 fL (35.1-46.3); White Blood Cell Count 12.53 K/mm3 (4.00-11.30)
[2023-05-24 17:25] LABS: BASOPHILS PERCENT MAN 0 % (0-2); EOSINOPHILS PERCENT MAN 0 % (0-6); LYMPHOCYTES ABSOLUTE MAN 6.01 K/mm3 (0.84-5.20); LYMPHOCYTES PERCENT MAN 48 % (21-46); METAMYELOCYTE ABSOLUTE MAN 0.12 K/mm3 (0.00-0.00); METAMYELOCYTE PERCENT MAN 1 % (0-0); MONOCYTES ABSOLUTE MAN 1.12 K/mm3 (0.16-1.47); MONOCYTES PERCENT MAN 9 % (4-13); NEUTROPHILS ABSOLUTE MAN 5.26 K/mm3 (1.96-9.15); SEG NEUTROPHILS PERCENT MAN 42 % (41-73); TOTAL CELLS COUNTED 100
[2023-05-24 18:09] LABS: Albumin, Blood 3.7 g/dL (3.4-5.0); Albumin/Globulin Ratio 0.8 (0.8-1.8); Bilirubin, Total 0.4 mg/dL (0.1-1.0); Bun/Creatinine Ratio 17.2 (12.0-20.0); Calcium, Blood 8.9 mg/dL (8.5-10.1); Creatinine, Blood 0.87 mg/dL (0.40-1.00); Globulin, Blood 4.6 g/dL (2.2-4.0); Potassium, Blood 4.1 mmol/L (3.5-5.5); Total Protein, Blood 8.3 g/dL (6.4-8.2)
== END ==
LOC: LAB SHORT 15:53 → LAB 15:53
PROVIDERS: Internal Medicine
DX: E11.42 Type 2 diabetes mellitus with diabetic polyneuropathy (principal)
CPT/HCPCS: 80053; 83036; 85025

== ENCOUNTER → 2023-07-04 | Outpatient (CLI) | payer OTHER ==
[2023-07-05 12:28] LABS: Candida species (DNA Probe) Negative (NEGATIVE); G. vaginalis (DNA Probe) Negative (NEGATIVE); T. vaginalis (DNA Probe) Negative (NEGATIVE)
== END | disposition home or self-care (01) ==
LOC: LAB SHORT 12:54 → LAB 12:54
PROVIDERS: Obstetrics & Gynecology
DX: N76.0 Acute vaginitis (principal)
CPT/HCPCS: 87480; 87510; 87660

== ENCOUNTER 2023-10-11 14:38 | Emergency (ER) | payer OTHER ==
[~2023-10-11] VITALS: Ht 154.9 cm; Wt 114.8 kg
[2023-10-11 14:56] VITALS: BP 141/86
[2023-10-11 16:18] LABS: Source, Urine Clean Catch
[2023-10-11 16:23] LABS: Appearance, Urine Cloudy (Clear); Bilirubin, Urine Neg (Neg); Blood, Urine 5+ (Neg); Color, Urine Yellow (P-Yellow); Glucose Qualitative, Urine Neg (Neg); Ketones, Urine Neg (Neg); Leukocyte Esterase, Urine 3+ (Neg); Nitrite, Urine Pos (Neg); Protein, Urine 2+ (Neg); Urobilinogen, Urine NORM (Normal); pH, Urine 6.5 (5.0-8.0)
[2023-10-11 16:41] LABS: Bacteria Many /hpf; Red Blood Cells, Urine TNTC /hpf (0-2); Squamous Epithelial Cells Not Seen /hpf (Few); White Blood Cells, Urine TNTC /hpf (0-5)
== END 2023-10-11 17:23 | disposition home or self-care (01) ==
LOC: ER 14:38
PROVIDERS: Student in an Organized Health Care Education/Training Program
DX: T83.091A Other mechanical complication of indwelling urethral catheter, initial encounter (principal); I10 Essential (primary) hypertension; E11.9 Type 2 diabetes mellitus without complications; E78.5 Hyperlipidemia, unspecified; Z88.5 Allergy status to narcotic agent; Z88.8 Allergy status to other drugs, medicaments and biological substances; Z79.01 Long term (current) use of anticoagulants; Z87.440 Personal history of urinary (tract) infections
CPT/HCPCS: 51705; 81001; 87086; 99283-25; C2627

== ENCOUNTER → 2024-01-31 | Outpatient (CLI) | payer OTHER ==
[~2024-01-31] MED LIST changes: +AMOCLA875 PO; +CIPR500 PO
== END ==
LOC: LAB SHORT 14:43 → LAB 14:43
DX: N76.6 Ulceration of vulva (principal)
CPT/HCPCS: 87070; 87147; 87205

== ENCOUNTER 2024-03-12 11:39 | Emergency (ER) | payer OTHER ==
[~2024-03-12] VITALS: Ht 154.9 cm; Wt 104.3 kg
[2024-03-12 11:52] VITALS: BP 122/74
[2024-03-12 12:50] LABS: BASOPHILS ABSOLUTE AUTO 0.09 K/mm3 (0.00-0.23); BASOPHILS PERCENT AUTO 1 % (0-2); EOSINOPHILS ABSOLUTE AUTO 0.11 K/mm3 (0.00-0.68); EOSINOPHILS PERCENT AUTO 1 % (0-6); Hematocrit 36.4 % (33.0-51.0); IMMATURE GRAN ABSOLUTE AUTO 0.07 K/mm3 (0.00-0.10); IMMATURE GRAN PERCENT AUTO 1 % (0-1); LYMPHOCYTES ABSOLUTE AUTO 2.53 K/mm3 (0.84-5.20); LYMPHOCYTES PERCENT AUTO 23 % (21-46); MONOCYTES ABSOLUTE AUTO 1.09 K/mm3 (0.16-1.47); MONOCYTES PERCENT AUTO 10 % (4-13); Mean Corpuscular HGB 30.6 pg (26.0-34.0); Mean Corpuscular Volume 93 fL (80-100); Mean Platelet Volume 9.1 fL (9.1-12.4); NEUTROPHILS ABSOLUTE AUTO 7.03 K/mm3 (1.96-9.15); NEUTROPHILS PERCENT AUTO 64 % (41-73); Platelet Count 374 K/mm3 (150-400); RDW Coefficient Variation 19.8 % (11.7-14.2); RDW Standard Deviation 66.4 fL (35.1-46.3); Red Blood Cell Count 3.92 M/mm3 (3.80-5.20); White Blood Cell Count 10.92 K/mm3 (4.00-11.30)
[2024-03-12 13:08] LABS: Albumin, Blood 2.5 g/dL (3.4-5.0); Albumin/Globulin Ratio 0.6 (0.8-1.8); Bilirubin, Total 0.2 mg/dL (0.1-1.0); Bun/Creatinine Ratio 24.2 (12.0-20.0); Calcium, Blood 8.7 mg/dL (8.5-10.1); Creatinine, Blood 0.78 mg/dL (0.40-1.00); Globulin, Blood 4.4 g/dL (2.2-4.0); Total Protein, Blood 6.9 g/dL (6.4-8.2)
[2024-03-12] MEDS ORDERED: LOPE2C PO (13:32)
== END 2024-03-12 15:10 | disposition home or self-care (01) ==
LOC: ER 11:39
PROVIDERS: Emergency Medicine
DX: L89.329 Pressure ulcer of left buttock, unspecified stage (principal); L89.319 Pressure ulcer of right buttock, unspecified stage; R19.7 Diarrhea, unspecified; E11.9 Type 2 diabetes mellitus without complications; E78.5 Hyperlipidemia, unspecified; M19.90 Unspecified osteoarthritis, unspecified site; Z79.01 Long term (current) use of anticoagulants; Z79.899 Other long term (current) drug therapy; Z88.6 Allergy status to analgesic agent; Z88.5 Allergy status to narcotic agent
CPT/HCPCS: 80053; 83690; 85025; 99283

== ENCOUNTER 2024-03-23 00:01 | Emergency (ER) | payer OTHER ==
[~2024-03-23] VITALS: Ht 154.9 cm; Wt 120.2 kg
[~2024-03-23 00:01] MED LIST changes: +ACYC400 PO; +LOPE2C PO; -METO100ER PO; +METO25ER PO; -VALA500 PO
[2024-03-23] MEDS ORDERED: CEPH500 PO (03:14)
[2024-03-23 04:30] VITALS: BP 104/79
[2024-03-24] MEDS ORDERED: ELIQUIS5 M2 PO (13:28)
[2024-03-24] MEDS ORDERED: TOLT2 PO (13:29)
[2024-03-24] MEDS ORDERED: LORA10ER PO (13:29)
[2024-03-24] MEDS ORDERED: Norco 5-325 Ta1 EACH PO (13:30)
[2024-03-24] MEDS ORDERED: CEPH500 PO (13:32)
== END 2024-03-23 05:37 | disposition home or self-care (01) ==
LOC: ER 00:01
DX: S92.501A Displaced unspecified fracture of right lesser toe(s), initial encounter for closed fracture (principal); S91.114A Laceration without foreign body of right lesser toe(s) without damage to nail, initial encounter; E11.9 Type 2 diabetes mellitus without complications; E78.5 Hyperlipidemia, unspecified; I10 Essential (primary) hypertension; W06.XXXA Fall from bed, initial encounter; Z79.01 Long term (current) use of anticoagulants; Z79.899 Other long term (current) drug therapy; Z88.6 Allergy status to analgesic agent; Z88.5 Allergy status to narcotic agent
CPT/HCPCS: 12002; 73610; 73620; 93005; 93010; 99284-25

== ENCOUNTER 2024-03-23 12:33 | Inpatient (IN) | payer OTHER ==
[~2024-03-23] VITALS: Ht 154.9 cm; Wt 101.5 kg
[2024-03-23 12:55] LABS: BASOPHILS ABSOLUTE AUTO 0.08 K/mm3 (0.00-0.23); BASOPHILS PERCENT AUTO 0 % (0-2); EOSINOPHILS PERCENT AUTO 0 % (0-6); Hematocrit 32.4 % (33.0-51.0); Hemoglobin 10.5 g/dL (11.5-16.0); IMMATURE GRAN ABSOLUTE AUTO 0.11 K/mm3 (0.00-0.10); IMMATURE GRAN PERCENT AUTO 1 % (0-1); LYMPHOCYTES ABSOLUTE AUTO 2.45 K/mm3 (0.84-5.20); LYMPHOCYTES PERCENT AUTO 14 % (21-46); MONOCYTES PERCENT AUTO 6 % (4-13); Mean Corpuscular HGB 31.3 pg (26.0-34.0); Mean Corpuscular HGB Conc 32.4 g/dL (31.5-36.5); Mean Corpuscular Volume 97 fL (80-100); Mean Platelet Volume 9.7 fL (9.1-12.4); NEUTROPHILS ABSOLUTE AUTO 14.19 K/mm3 (1.96-9.15); NEUTROPHILS PERCENT AUTO 79 % (41-73); Platelet Count 312 K/mm3 (150-400); RDW Coefficient Variation 18.9 % (11.7-14.2); RDW Standard Deviation 66.9 fL (35.1-46.3); Red Blood Cell Count 3.35 M/mm3 (3.80-5.20); White Blood Cell Count 17.93 K/mm3 (4.00-11.30)
[2024-03-23 13:15] LABS: Albumin, Blood 2.4 g/dL (3.4-5.0); Albumin/Globulin Ratio 0.5 (0.8-1.8); Bilirubin, Total 0.5 mg/dL (0.1-1.0); Calcium, Blood 7.9 mg/dL (8.5-10.1); Creatinine, Blood 1.04 mg/dL (0.40-1.00); Globulin, Blood 4.5 g/dL (2.2-4.0); Potassium, Blood 5.3 mmol/L (3.5-5.5); Total Protein, Blood 6.9 g/dL (6.4-8.2)
[2024-03-23 13:52] LABS: Influenza A, PCR NEGATIVE (NEGATIVE); Influenza B, PCR NEGATIVE (NEGATIVE); Resp Syncytial Virus, PCR NEGATIVE (NEGATIVE); SARS-Cov-2 (COVID-19) PCR, MMC NEGATIVE (NEGATIVE)
[2024-03-23] MEDS ORDERED: CefTRIAXone Sodium 1,000 MG in NS 50 ML IV ONE (15:35)
[2024-03-23] MEDS ORDERED: Cefepime HCl 1,000 MG in NS 100 ML IV ONE (16:30)
[2024-03-23 16:35] LABS: Source, Urine Foley catheter
[2024-03-23 16:40] LABS: Appearance, Urine Cloudy (Clear); Bilirubin, Urine Neg (Neg); Blood, Urine 5+ (Neg); Color, Urine Yellow (P-Yellow); Glucose Qualitative, Urine Neg (Neg); Ketones, Urine Neg (Neg); Leukocyte Esterase, Urine 3+ (Neg); Nitrite, Urine Pos (Neg); Protein, Urine 2+ (Neg); Urobilinogen, Urine NORM (Normal)
[2024-03-23 16:54] LABS: Amorphous Light (0-Heavy); Bacteria Many /hpf; Squamous Epithelial Cells Not Seen /hpf (Few)
[2024-03-23] MEDS ORDERED: FLU VACC TS2024-25(6MOS UP)/PF 45 MCG/0.5 ML SYRINGE IM ONE (18:55)
[2024-03-23] MEDS ORDERED: NS 1,000 ML IV SCH (19:00)
[2024-03-23] MEDS ORDERED: Apixaban 5 MG Tab PO SCH (21:00)
--- NOTE | 2024-03-23 22:22 | NUR ---
NEW T-ORDER FROM , ON-CALL HOSPITALIST RECEIVED BY THIS SPECIAL EVENTS ASSISTANT. ATIVAN IV 0.5MG Q4HRS PRN. ENTERED TO [place], SEE EMAR. NO ADDITIONAL NEW ORDERS AT THIS TIME.
[2024-03-23] MEDS ORDERED: LORazepam 2 MG/ML 1ML Injection IV PRN (22:25)
--- NOTE | 2024-03-24 03:13 | NUR ---
SHIFT SUMMARY TELEPHONE REPORT RECEIVED FROM WATER HYDRANT INSTALLER INGRID @2049. PT ARRIVED TO SCU FLOOR [id number] @2109. PT WAS TRANSFERRED TO HOSPITAL BED BY ER AND SCU STAFF. PT HAS A SUBRAPUBIC CATH, CATHETER CARE PROVIDED. PT HAS GOOD URINE OUTPUT>400MLS , TEA COLOR URINE. PT WAS CHANGED TO GOWN AND PICTURES TAKEN OF COCCYX DECUBITUS ULCER, RIGHT 4TH AND 5TH TOE WELL FEET BILATERALLY. PT HAS SOME BRUISING ON LEFT ARMPIT/LEFT SHOULDER AREA D/T HX OF FALLING FEW DAYS AGO. PT HAS AN IV ON LEFT WRIST. PT IS ON RA. TELE: SR@95 WITH OCCATIONAL PAC'S. EMA GUADARRAMA COMPLETED THE INITIAL ADMISSION ASSESSMENT. OH BOO AND THIS SR. MANAGER CORPORATE COMMUNICATIONS COMPLETED THE SKIN CHECKS, SEE PICTURES IN THE CHART. PT SCREAMING, SENSITIVE TO TOUCH, UNABLE TO MAKE HER NEEDS KNOWN. THIS SR. MANAGER CORPORATE COMMUNICATIONS CALLED ON -CALL HOSPITALIST. NEW ORDER FOR ATIVAN (SEE PREVIOUS NOTE.) ATIVAN ADMINISTERED X2 DURING THIS SHIFT. PT IS VERY VOCAL AND LOCALIZES MOST PAIN TO RADHA AREA/DECUBITUS ULCER. NO ACUTE EVENTS DURING THIS SHIFT. BED AT THE LOWEST POSITION, CALL LIGHT W/I REACH. FREQUENT CHECKS BY STAFF MEMBERS.
[2024-03-24 03:23] VITALS: BP 141/100
[2024-03-24] MEDS ORDERED: Cefepime HCl 2,000 MG in NS 100 ML IV SCH (05:00)
[2024-03-24 07:39] VITALS: BP 125/63
[2024-03-24 08:31] LABS: BASOPHILS ABSOLUTE AUTO 0.06 K/mm3 (0.00-0.23); BASOPHILS PERCENT AUTO 0 % (0-2); EOSINOPHILS ABSOLUTE AUTO 0.01 K/mm3 (0.00-0.68); EOSINOPHILS PERCENT AUTO 0 % (0-6); Hematocrit 30.8 % (33.0-51.0); Hemoglobin 9.9 g/dL (11.5-16.0); IMMATURE GRAN ABSOLUTE AUTO 0.06 K/mm3 (0.00-0.10); IMMATURE GRAN PERCENT AUTO 0 % (0-1); LYMPHOCYTES ABSOLUTE AUTO 3.04 K/mm3 (0.84-5.20); LYMPHOCYTES PERCENT AUTO 23 % (21-46); MONOCYTES ABSOLUTE AUTO 1.33 K/mm3 (0.16-1.47); MONOCYTES PERCENT AUTO 10 % (4-13); Mean Corpuscular HGB 30.9 pg (26.0-34.0); Mean Corpuscular HGB Conc 32.1 g/dL (31.5-36.5); Mean Corpuscular Volume 96 fL (80-100); Mean Platelet Volume 9.9 fL (9.1-12.4); NEUTROPHILS ABSOLUTE AUTO 8.94 K/mm3 (1.96-9.15); NEUTROPHILS PERCENT AUTO 67 % (41-73); Platelet Count 279 K/mm3 (150-400); RDW Coefficient Variation 18.7 % (11.7-14.2); RDW Standard Deviation 66.8 fL (35.1-46.3); White Blood Cell Count 13.44 K/mm3 (4.00-11.30)
[2024-03-24] MEDS ORDERED: Morphine Sulfate 4 MG/1 ML Injection IV ONE (08:35)
[2024-03-24] MEDS ORDERED: HYDROcodone 5-APAP 325 TAB PO PRN (08:35)
[2024-03-24 08:54] LABS: Albumin, Blood 2.1 g/dL (3.4-5.0); Albumin/Globulin Ratio 0.5 (0.8-1.8); Bilirubin, Total 0.4 mg/dL (0.1-1.0); Calcium, Blood 7.8 mg/dL (8.5-10.1); Creatinine, Blood 0.82 mg/dL (0.40-1.00); Globulin, Blood 3.9 g/dL (2.2-4.0); Potassium, Blood 4.5 mmol/L (3.5-5.5)
[2024-03-24] MEDS ORDERED: Acyclovir 400 MG Tab PO SCH ×3 (09:00→21:00)
[2024-03-24] MEDS ORDERED: ELIQUIS5 M2 PO (13:28)
[2024-03-24] MEDS ORDERED: TOLT2 PO (13:29)
[2024-03-24] MEDS ORDERED: LORA10ER PO (13:29)
[2024-03-24] MEDS ORDERED: Norco 5-325 Ta1 EACH PO (13:30)
[2024-03-24] MEDS ORDERED: CEPH500 PO (13:32)
--- NOTE | 2024-03-24 13:32 | NUR ---
SPOUSE BROUGHT IN PRINT OUT OF MEDICATIONS THAT HAVE BEEN FILLED THROUGH [facility] FOR THE PAST 6 MONTHS. MEDICATION RECONCILIATION COMPLETED BASED ON MEDICATIONS FILLED THE PAST 3 MONTHS. LIST ON CHART.
[2024-03-24] MEDS ORDERED: AmLODIPine Besylate 5 MG Tab PO SCH (14:00)
[2024-03-24] MEDS ORDERED: Metoprolol Succinate 25 MG TABCR PO SCH (14:00)
[2024-03-24 15:09] VITALS: BP 113/50
[2024-03-24] MEDS ORDERED: FentaNYL Citrate 50 MCG/ML 2 ML Injection IV PRN (17:20)
[2024-03-24 17:51] LABS: Source, Urine Suprapubic Cath
[2024-03-24 17:56] LABS: Appearance, Urine Cloudy (Clear); Bilirubin, Urine Neg (Neg); Blood, Urine 5+ (Neg); Color, Urine Yellow (P-Yellow); Glucose Qualitative, Urine Neg (Neg); Ketones, Urine Neg (Neg); Leukocyte Esterase, Urine 3+ (Neg); Nitrite, Urine Neg (Neg); Protein, Urine 2+ (Neg); Urobilinogen, Urine NORM (Normal)
[2024-03-24 18:03] LABS: White Blood Cells, Urine 50-100 /hpf (0-5)
[2024-03-24 18:06] LABS: Bacteria Many /hpf; Squamous Epithelial Cells Not Seen /hpf (Few); Transitional Epithelial Cells Rare /hpf (0-Rare)
--- NOTE | 2024-03-24 18:27 | NUR ---
SHIFT SUMMARY PT A&OX3. PT ADMITTED DUE TO AMS. PT RECIEVING ANTIBIOTICS FOR UTI. PT CAME IN WITH TWO TOES ON R FOOT FX. PT REPORTS PAIN ON TOE AND BUTTOX. PT HAS WOUND ON COCCYX. WOUND CARE COMPLETED. SUPRAPUBIC CATHETER WAS REPLACED. PT BEING MEDICATED PER EMAR AND WITH UNINTERUPTED REST. PT TURNED Q2 HR. PT CALLS OUT AND MAKES NEEDS KNOWN. PT CALL LIGHT IN REACH. STOPPED BY A FEW TIMES TO VISIT. PT RECIEVING CONT. IV FLUIDS. PT ON TELE. TELE REPORTED 15 BEAT RUN OF SVT. DR. COSME NOTIFIED. PT REPORTS NO CHEST DISCOMFORT. NO NEW ORDERS AT THIS TIME. PT ON ROOM AIR.
[2024-03-24 19:31] VITALS: BP 124/70
[2024-03-25 03:56] VITALS: BP 111/59
--- NOTE | 2024-03-25 04:00 | NUR ---
SHIFT SUMMARY PT IS A&O X2-3, COFUSED, ARGUMENTATIVE AND ANGRY AFFECT AT HS. PT UPSET "AM I AN INFANT?", PER PT STATEMENTS TO THIS ELASTIC YARN TWISTER HELPER. PT CRYING OUT IN PAIN TO BUTTOCKS/DECUBITUS ULCERS, LE'S. MEDICATED ORDERED WITH FENTANYL IV PRN X2, AND WITH NORCO PO PRN. PT UPSET WHEN MIXED PO MEDICATION WITH APPLESAUCE. PT ABLE TO SWALLOW TABS WITH FLUIDS. NS INFUSING ORDERED. SUBRAPUBIC CATH DRAINING TEA COLOR URINE. DRESSING CHANGE ORDERED QSHIFT. IV ABX INFUSED ORDERED. NO ACUTE EVENTS/DISTRESS NOTED/REPORTED DURING THIS SHIFT. BED AT THE LOWEST POSITION, CALL LIGHT W/I REACH. BED ALARM FOR SAFETY. FREQUENT CHECKS/ROUNDING BY THE BEDSIDE. PT HAS BEEN RESTING APPROXIMATELY 6-7HRS DURING THIS SHIFT, RR EVEN, UNLABORED,VSS.
--- NOTE | 2024-03-25 05:20 | NUR ---
MEDICATED WITH PRN IV FENTANYL ORDERED PRIOR WOUND CARE AND DRESSING CHANGE.
[2024-03-25 07:24] LABS: BASOPHILS ABSOLUTE AUTO 0.04 K/mm3 (0.00-0.23); BASOPHILS PERCENT AUTO 0 % (0-2); EOSINOPHILS ABSOLUTE AUTO 0.14 K/mm3 (0.00-0.68); EOSINOPHILS PERCENT AUTO 1 % (0-6); Hematocrit 29.3 % (33.0-51.0); Hemoglobin 9.3 g/dL (11.5-16.0); IMMATURE GRAN ABSOLUTE AUTO 0.05 K/mm3 (0.00-0.10); IMMATURE GRAN PERCENT AUTO 1 % (0-1); LYMPHOCYTES ABSOLUTE AUTO 2.67 K/mm3 (0.84-5.20); LYMPHOCYTES PERCENT AUTO 25 % (21-46); MONOCYTES ABSOLUTE AUTO 1.08 K/mm3 (0.16-1.47); MONOCYTES PERCENT AUTO 10 % (4-13); Mean Corpuscular HGB 31.1 pg (26.0-34.0); Mean Corpuscular HGB Conc 31.7 g/dL (31.5-36.5); Mean Corpuscular Volume 98 fL (80-100); Mean Platelet Volume 9.8 fL (9.1-12.4); NEUTROPHILS ABSOLUTE AUTO 6.72 K/mm3 (1.96-9.15); NEUTROPHILS PERCENT AUTO 63 % (41-73); Platelet Count 257 K/mm3 (150-400); RDW Coefficient Variation 18.2 % (11.7-14.2); RDW Standard Deviation 66.3 fL (35.1-46.3); Red Blood Cell Count 2.99 M/mm3 (3.80-5.20)
[2024-03-25 07:50] LABS: Bun/Creatinine Ratio 24.9 (12.0-20.0); Calcium, Blood 7.5 mg/dL (8.5-10.1); Creatinine, Blood 0.72 mg/dL (0.40-1.00); Potassium, Blood 3.8 mmol/L (3.5-5.5)
[2024-03-25] MEDS ORDERED: Mupirocin 2% Ointment 22 GM TOP SCH (11:00)
[2024-03-25 15:33] VITALS: BP 127/64
--- NOTE | 2024-03-25 18:43 | NUR ---
SHIFT SUMMARY: PT A/O X2-3. PT BECOME VERY TEARFUL AND ANXIOUS WITH ANY PERSONAL CARE. STAGE 2 DECUB ULCER CLEANSED AND CHANGED ON BOTTOM. MEDICATED FOR PAIN AND ANXIETY ONCE THIS SHIFT. PT STATED SHE NEEDED TO HAVE A BM BUT REFUSED TO GET ON BEDPAN. ATTEMTED TO EXPLAIN TO PT THAT SHE HAS TOE FX AND LARGE SORE ON BUTTOCK BUT PT ENDED UP CALLING STATING STAFF WAS REFUSING TO PUT HER ON COMMODE. PHYSICAL THERAPY ATTEMPTED TO WORK WITH PT THIS SHIFT. ACCORDING TO PHYSICAL THERAPY, PT NOT ABLE TO PERFORM AND TASKS AND NOT PARTICIPATING IN THERAPY. NS INFUSING @125/HR. CALL LIGHT IN REACH. BED IN LOWEST POSITION.
[2024-03-25 19:25] VITALS: BP 109/54
[2024-03-25] MEDS ORDERED: Piperacillin/Tazobactam Sod 3.375 GM in NS 100 ML IV SCH (20:00)
--- NOTE | 2024-03-26 01:28 | NUR ---
NEW T-ORDER FROM RECEIVED BY THIS RESIDENT MEDICAL OFFICER: NYSTATIN CREAM Q8HRS PRN. ENTERED TO [email or web address], SEE EMAR. NO ADDITIONAL NEW ORDERS AT THIS TIME.
--- NOTE | 2024-03-26 03:51 | NUR ---
SHIFT SUMMARY NO ACUTE EVENTS OR DISTRESS NOTED/REPORTED DURING THIS SHIFT. MEDICATED FOR PAIN WITH NORCO PRN ONCE, FENTANYL PRN IV TWICE DURING THIS SHIFT. MEDICATED WITH ATIVAN IV PRN TWICE FOR ANXIETY. PT HAS BEEN RESTING WELL DURING THE NIGHT HRS. NS INFUSING ORDERED. IV ABX INFUSED ORDERED. TELE: SR@85. NEW ORDER FOR NYSTATIN OINTMENT, SEE PREVIOUS NOTE. BED AT THE LOWEST POSITION, CALL LIGHT WITHIN REACH. PT IS A&O X2-3, CONFUSED.
[2024-03-26 04:02] VITALS: BP 111/57
[2024-03-26] MEDS ORDERED: Nystatin 100,000 Unit/GM Ointment 15 GM TOP SCH (09:00)
[2024-03-26 15:20] VITALS: BP 121/62
--- NOTE | 2024-03-26 18:18 | NUR ---
SHIFT SUMMARY: PT ORIENTED TO PLACE AND SITUATION. PT STATES SHE IS AT "THE HOSPITAL" AND HERE FOR "AN INFECTION." PT MEDICATED FOR PAIN AND ANXIETY THIS SHIFT. DRESSING TO BOTTOM CHANGED PER ORDERS. NYSTATIN CREAM APPLIED TO UNDER PANNUS, GROIN, AND UNDER R. BREAST. TELE IN PLACE RUNNING SINUS RHYTHM IN THE 90'S. NS INFUSING @125/HR. CALL LIGHT IN REACH. BED IN LOWEST POSITION.
[2024-03-26 20:01] VITALS: BP 112/59
[2024-03-26] MEDS ORDERED: Arginine/Glutamine/Calcium Hmb 1 Packet PO SCH (21:00)
--- NOTE | 2024-03-27 03:07 | NUR ---
SHIFT SUMMARY PT CONTINUES TO VOCALIZE/CRY/YELL WHEN COMPLAINTS OF PAIN IN TOES AND BUTTOCKS. MEDICATED WITH PRN FENTANYL IV X2, PRN NORCO X2, AND PRN IV ATIVAN X2 FOR PAIN AND ANXIETY. EFFECTIVE PER FACE SCALE. NS INFUSING 125MLS/HR ORDERED. PT IS CONFUSED, A&O X2-3, AND USES SARCASM WHEN INTERACTING WITH STAFF. TELE: SR @85. DRESSING CHANGE COMPLETED AND PRN OINTMENTS ADMINISTERED UNDER THE BREAST, GROIN AND PANNUS. NO ACUTE EVENTS, BED AT THE LOWEST POSITION, CALL LIGHT WITHIN REACH. PT IS ABLE TO MAKE HER NEEDS KNOWN. Q2HR REPOSITIONING IN BED T/O THIS SHIFT.
[2024-03-27 03:20] VITALS: BP 119/76
[2024-03-27 07:20] VITALS: BP 131/71
[2024-03-27] MEDS ORDERED: Lidocaine 5% Ointment 35 gm TOP PRN (13:55)
[2024-03-27] MEDS ORDERED: Acetaminophen 325 MG TABLET PO PRN (14:00)
[2024-03-27] MEDS ORDERED: Loratadine 10 MG Tab PO PRN (14:00)
[2024-03-27] MEDS ORDERED: Albuterol HFA200 ACT/6.7 GM INH INH PRN (14:10)
[2024-03-27 16:07] VITALS: BP 129/66
--- NOTE | 2024-03-27 18:03 | NUR ---
SHIFT SUMMARY: PT ORIENTED TO SELF AND PLACE. UNCERTAIN OF CURRENT SITUATION. NO ACUTE EVENTS OCCURED THIS SHIFT. PT CONTINUED TO HOLLER OUT IN PAIN. ROTATING Q2 FOR DECUB ULCER TO BUTTOCK. BED BACKT AND WOUND CARE PROVIDED THIS SHIFT. REPEAT PICTURES OBTAINED AND PLACED IN CHART. IV FENTANYL GIVEN X3 AND IV ATIVAN GIVEN X2 BOTH WITH GOOD EFFECT. IV ABX PROVIDED W/O COMPLICATIONS. CALL LIGHT IN REACH. BED IN LOWEST POSITION.
[2024-03-27 20:04] VITALS: BP 139/76
[2024-03-27] MEDS ORDERED: Lisinopril 20 MG Tab PO SCH (21:00)
[2024-03-28 03:09] VITALS: BP 133/64
--- NOTE | 2024-03-28 04:08 | NUR ---
SHIFT SUMMARY PATIENT HAD NO ACUTE CHANGES. AXOX 1-2 WITH CONFUSION, BEDREST. ASK WHERE IS AT MULTIPLE X'S AND ANSWER PROVIDED EACH TIME. DENIES CHEST PAIN, SOB, AND N/V. VSS/AFEBRILE. REPORTED BANK PAIN AND ANXIETY. IV FENTANYL 25 MCG AND IV ATIVAN 0.5 MG GIVEN PER EMAR. PIV INTACT. NS INFUSING @ 125 mL/HR. IV ABX INFUSED. SUPRA PUBIC CATH INTACT AND DRAINING TO GRAVITY. CALL LIGHT IN REACH. BED IN LOWEST POSITION AND ALARM ACTIVATED. WILL CONTINUE TO MONITOR UNTIL DAY SHIFT NURSE ASSUMES CARE.
--- NOTE | 2024-03-28 05:45 | NUR ---
IV FENTANYL 25 MCG AND IV ATIVAN 0.5 MG GIVEN PRIOR TO WOUND BUTTOCK DRESSING CHANGE. DRESSING CHANGE COMPLETE. PATIENT TOLERATED FAIRLY WELL MEDICATED. WCTM.
[2024-03-28] MEDS ORDERED: Trospium Chloride 20 MG Tab PO SCH (06:00)
[2024-03-28] MEDS ORDERED: Levothyroxine Sodium 0.075 MG Tab PO SCH (06:00)
[2024-03-28 07:18] VITALS: BP 159/77
--- NOTE | 2024-03-28 07:56 | NUR ---
pt laying in bed moaning, asked her if in pain, she says no, im perfect, states she slept well, and just wants breakfast, lungs are clear in upper gee, dim in bases, on r/a, no cough noted, hrr, tele in place running sr per monitor, see strip, no edema noted, ppp+1, cap refill <3 sec, vs stable, afebrile, piv to Left hand site is clear and patent, btx4, abd flat soft nontender, voids via suprapubic cath draining yellow urine with sediment, briefs in place, has decub to coccyx, dressing in place was changed at 5am per report, she is bedrest, brandon, repositioned her for breakfast and gave her fresh ice water call light in reach.
[2024-03-28] MEDS ORDERED: Allopurinol 100 MG Tab PO SCH (09:00)
[2024-03-28] MEDS ORDERED: Spironolactone 12.5 MG TAB PO SCH (09:00)
[2024-03-28 16:17] VITALS: BP 147/78
--- NOTE | 2024-03-28 18:08 | NUR ---
pt slept about half the day, moans when awake, spouce in to visit several hrs, no acute changes this shift, call light in reach.
[2024-03-29 02:14] VITALS: BP 147/82
--- NOTE | 2024-03-29 04:34 | NUR ---
SHIFT SUMMARY PATIENT HAD NO ACUTE CHANGES. AXOX 2 AND BEDREST MOANING AT TIMES. DENIES CHEST PAIN, SOB, AND N/V. PIV INTACT. NS INFUSING @ 125 mL/HR. SUPRA PUBIC CATH INTACT AND DRAINING TO GRAVITY. TELE MONITOR NSR 84. CALL LIGHT IN REACH. BED IN LOWEST POSITION AND ALARM ACTIVATED. WILL CONTINUE TO MONITO UNTIL DAY SHIFT NURSE ASSUMES CARE.
[2024-03-29 07:02] LABS: BASOPHILS PERCENT AUTO 1 % (0-2); EOSINOPHILS ABSOLUTE AUTO 0.36 K/mm3 (0.00-0.68); EOSINOPHILS PERCENT AUTO 4 % (0-6); Hematocrit 30.7 % (33.0-51.0); Hemoglobin 10.1 g/dL (11.5-16.0); IMMATURE GRAN ABSOLUTE AUTO 0.21 K/mm3 (0.00-0.10); IMMATURE GRAN PERCENT AUTO 2 % (0-1); LYMPHOCYTES ABSOLUTE AUTO 2.82 K/mm3 (0.84-5.20); LYMPHOCYTES PERCENT AUTO 29 % (21-46); MONOCYTES ABSOLUTE AUTO 0.89 K/mm3 (0.16-1.47); MONOCYTES PERCENT AUTO 9 % (4-13); Mean Corpuscular HGB Conc 32.9 g/dL (31.5-36.5); Mean Corpuscular Volume 94 fL (80-100); Mean Platelet Volume 9.2 fL (9.1-12.4); NEUTROPHILS ABSOLUTE AUTO 5.38 K/mm3 (1.96-9.15); NEUTROPHILS PERCENT AUTO 55 % (41-73); NRBC ABSOLUTE 0.02 K/mm3 (0.00-0.02); NRBC Auto 0.2 /100 WBC (0.0-0.2); Platelet Count 334 K/mm3 (150-400); RDW Coefficient Variation 17.6 % (11.7-14.2); RDW Standard Deviation 61.3 fL (35.1-46.3); Red Blood Cell Count 3.26 M/mm3 (3.80-5.20); White Blood Cell Count 9.76 K/mm3 (4.00-11.30)
[2024-03-29 07:24] LABS: Albumin, Blood 1.9 g/dL (3.4-5.0); Albumin/Globulin Ratio 0.5 (0.8-1.8); Bilirubin, Total 0.4 mg/dL (0.1-1.0); Bun/Creatinine Ratio 13.4 (12.0-20.0); Calcium, Blood 7.9 mg/dL (8.5-10.1); Creatinine, Blood 0.52 mg/dL (0.40-1.00); Potassium, Blood 3.3 mmol/L (3.5-5.5); Total Protein, Blood 5.9 g/dL (6.4-8.2)
[2024-03-29 07:39] VITALS: BP 150/79
[2024-03-29] MEDS ORDERED: Potassium Chloride 20 MEQ TabCR PO SCH (13:00)
[2024-03-29 15:39] VITALS: BP 134/69
--- NOTE | 2024-03-29 18:17 | NUR ---
SHIFT SUMMARY PT IS A&OX2. PT ADMITTED DUE TO AMS. PT CAN'T RECAL REASONS FOR BEING ADMITTED. PT ON ROOM AIR. WOUND DRESSING WAS CHANGED TODAY. PT WAS MEDICATED FOR PAIN PRIOR TO WOUND DRESSING CHANGE. PT REPORTS PAIN ON R TOES AND BUTTOCKS. PT ON TELE. PT HAD EPISODES OF SVT AND SHORT RUN OF AFIB ACCORDING TO TELE REPORT. PT HAS NO REPORTED HX OF AFIB. MD NOTIFIED, NO NEW ORDERS WERE OBTAINED AT THIS TIME. PT WORKED WITH PHYSICAL THERAPY AND OCCUPATIONAL THERAPY TODAY. PT WAS EATING ADEQUATELY. PT MAKES NEEDS KNOWN, CALL LIGHT IN REACH. WAS AT BEDSIDE OFF AND ON TODAY. PLAN IS TO BE NPO AT MIDNIGHT AND HAVE A WOUND DEBRIEDEMENT IN AM. ELIQUIS D/C PRE-PROCEDURE AND NEEDS TO BE STARTED AGAIN POST OP PER MD. PT WAS REPOSITIONED Q2HRS. BEDALARM ON.
[2024-03-29 19:20] VITALS: BP 154/83
[2024-03-29] MEDS ORDERED: Metoprolol Tartrate 25 MG Tab PO ONE (20:00)
[2024-03-29] MEDS ORDERED: Potassium Chloride 10 Meq Tablet SA PO ONE (20:00)
[2024-03-29] MEDS ORDERED: Magnesium Sulf 2 GM/Water 50ML 50 ML IV SCH (20:30)
--- NOTE | 2024-03-29 23:48 | NUR ---
NOTIFIED BY [facility] THAT PT HAD 12 SEC RUN OF SVT 170'S HR. PT CHECKED AND ASYMPTOMATIC. HOSPITALIST NOTIFIED OF EPISODE AND THAT PT MG 1.5, K 3.3. ORDERS FOR 2G MG SULFATE IVPB, 20 MEQ KCL PO, AND ADDITIONAL 25 MG LOPRESSOR PO GIVEN.
[2024-03-30 04:56] VITALS: BP 145/73
[2024-03-30 06:06] LABS: Bun/Creatinine Ratio 17.9 (12.0-20.0); Calcium, Blood 8.1 mg/dL (8.5-10.1); Creatinine, Blood 0.5 mg/dL (0.40-1.00); Magnesium, Blood 1.9 mg/dL (1.6-2.4); Potassium, Blood 3.6 mmol/L (3.5-5.5)
--- NOTE | 2024-03-30 06:24 | NUR ---
SHIFT SUMMARY NOC PT A/O X 3. FORGETFUL AND CONFUSED AT TIMES, BUT PLEASANT AND COOPERATIVE WITH CARE. NPO SINCE MIDNIGHT IN PREPARATION OF I/D ON L BUTTOCK S2 PRESSURE ULCER TODAY. PT ON TELE SINUS RHYTHM IN 90'S. PT DID HAVE 12 SECOND RUN OF SVT WITH HR 170'S, PT ASYMPTOMATIC AND HOSPITALIST NOTIFIEDAND TOLD THAT PT MG 1.5, AND POSTASSIUM 3.3, SO ORDERS FOR IVPB 2G MG SULFATE, AND KCL 20 MEQ PO GIVEN ALONGWITH ADDITIONAL DOSE OF PO LOPRESSOR 25 MG. AM LABS MG 1.9, K 3.6 . PT HAS SUPRAPUBIC CATHETER IN PLACE FOR CHRONIC RETENTION. PT PAIN BEING MANAGED WITH PO PAIN RX. PT STILL VERY DECONDITIONED AND WEAK AND REQUIRING 2-3PA FOR CARE. PT CURRENTLY RESTING WITH BED IN LOWEST POSITION, AND CALL LIGHT WITHIN REACH.
[2024-03-30 07:32] VITALS: BP 162/89
[2024-03-30 14:59] VITALS: BP 140/75
--- NOTE | 2024-03-30 17:59 | NUR ---
SHIFT SUMMARY PT AOX3-4, CONFUSED AT TIMES. MAY NOT ANSWER YOUR QUESTION DIRECTLY. MEDICATED PER THE EMAR FOR PAIN. CALLS AND MAKES HER NEEDS KNOWN. REPOSITIONED THROUGHOUT THE SHIFT, BRIEF CHANGED NEEDED. DRESSING TO BUTTOCK CHANGED THIS SHIFT. SEE DR. ZUNIGA NOTE ABOUT NO I AND D TO THE BUTTOCK. NO RECENT EVENTS PER TELE. FAMILY AT THE BS THROUGHOUT THE SHIFT. CALL LIGHT WITHIN REACH, BED LOCKED AND IN THE LOWEST POSITION. WILL REPORT TO ONCOMING NURSE.
[2024-03-30 19:56] VITALS: BP 167/89
[2024-03-30] MEDS ORDERED: Apixaban 5 MG Tab PO SCH (21:00)
[2024-03-31 06:22] VITALS: BP 144/84
--- NOTE | 2024-03-31 07:38 | NUR ---
SHIFT SUMMARY NOC PT A/O X 3. FORGETFUL AT TIMES, BUT CCOPERATIVE WITH CARE. VSS. NO ACUTE CHANGES TO REPORT. PT ON TELE SINUS RHYTHM IN 80'S. SUPRAPUBIC CATHETER PATENT DRAINING TO GRAVITY. STAGE 2 PI ON L BUTTOCKS DRESSINGS CHANGED. PT HAD ONE INCONTINENT BM. NS INFUSING @ 125 ML/JHR. PT STATED CONCERNS ABOUT HER DIET AND HAS INTEREST IN SPEAKING WITH DROP COUNT ASSOCIATE PRIOR TO DISCHARGE. PT CURRENTLY RESTING WITH BED IN LOWEST POSITION, AND CALL LIGHT WITHIN REACH.
[2024-03-31 08:20] VITALS: BP 165/83
[2024-03-31 16:14] VITALS: BP 141/85
[2024-03-31] MEDS ORDERED: Amoxicillin/Clavulanate K 875 MG Tab PO SCH (18:00)
--- NOTE | 2024-03-31 18:06 | NUR ---
SHIFT SUMMARY PT A&OX3-4 AND ANSWERS QUESTIONS APPROPRIATELY. PT RECEIVED PRESCRIBED AND PRN MEDICATIONS. PT AND FAMILY DISCUSSED PLAN OF CARE WITH PROVIDER, PLAN IS TO D/C HOME WITH HOME HEALTH AND TO HAVE A HOSPITAL BED DELIVERED TO PT HOME. VSS, NO COMPLAINTS OF CP/PRESSURE OR SOB. PT HAD BMX2 DURING SHIFT, DRESSING CHANGED AFTERWARDS. PT REPOSITIONED Q2 HOURS. PT BECOMES TEARY AND AGITATED WITH CARE, THERAPEUTIC COMMUNICATION TECHNIQUES UTELIZED. NO ACUTE EVENTS AT THIS TIME. PT LEFT IN A POSITION OF SAFETY WITH FALL PRECAUTIONS IN PLACE AND CALL LIGHT IN REACH.
[2024-03-31] MEDS ORDERED: QUEtiapine Fumarate 25 MG Tab PO ONE (19:25)
[2024-03-31 20:12] VITALS: BP 136/91
[2024-04-01] VITALS (9 sets, daily range): BP systolic 110–163; BP diastolic 69–93
[2024-04-01] MEDS ORDERED: Metoprolol Tartrate 1 MG/ML 5 ML VIAL IV ONE ×2 (05:00→14:00)
--- NOTE | 2024-04-01 05:37 | NUR ---
NOTIFIED BY [facility] THAT PT WAS IN AFIB HR IN 120'S-130'S SINCE 414 AND NOTIFIED @ 444. PT CHECKED AND ASLEEP. HOSPITALIST NOTIFIED AND ORDER TO GIVE LOPRESSOR IV 5 MG X 1 ADMINSTERED.
--- NOTE | 2024-04-01 05:46 | NUR ---
SHIFT SUMMARY NOC PT A/O X 3-4. FORGETFUL AT TIMES, BUT PLEASANT AND COOPERATIVE WITH CARE. VSS. NO ACUTE CHANGES TO REPORT. PT PAIN BEING MANAGED PER EMAR. SUPRAPUBIC CATHETER IN PLACE DRAINING TO GRAVITY. STAGE 2 PI HAS XEROFORM AND MEPILEX IN PLACE C/D/I. PT WENT INTO AFIB @ 0415 HR 120'S-130'S, LOPRESSOR IV 5 MG GIVEN AND HR DECREASE TO 110'S. PT IS WAITING ON MEDICAL BED DELIVERY HOME AND COULD DISCHARGE TODAY IFBED IN DELIVERED. ON TELE SINUS RHYTHM IN 80'S. PT CURRENTLY RESTING WITH BED IN LOWEST POSITION, AND CALL LIGHT WITHIN REACH.
[2024-04-01 06:22] LABS: BASOPHILS ABSOLUTE AUTO 0.11 K/mm3 (0.00-0.23); BASOPHILS PERCENT AUTO 1 % (0-2); EOSINOPHILS ABSOLUTE AUTO 0.42 K/mm3 (0.00-0.68); EOSINOPHILS PERCENT AUTO 4 % (0-6); Hematocrit 34.6 % (33.0-51.0); Hemoglobin 11.3 g/dL (11.5-16.0); IMMATURE GRAN ABSOLUTE AUTO 0.15 K/mm3 (0.00-0.10); IMMATURE GRAN PERCENT AUTO 2 % (0-1); LYMPHOCYTES ABSOLUTE AUTO 3.52 K/mm3 (0.84-5.20); LYMPHOCYTES PERCENT AUTO 37 % (21-46); MONOCYTES ABSOLUTE AUTO 0.91 K/mm3 (0.16-1.47); MONOCYTES PERCENT AUTO 10 % (4-13); Mean Corpuscular HGB 30.5 pg (26.0-34.0); Mean Corpuscular HGB Conc 32.7 g/dL (31.5-36.5); Mean Corpuscular Volume 94 fL (80-100); Mean Platelet Volume 9.1 fL (9.1-12.4); NEUTROPHILS ABSOLUTE AUTO 4.36 K/mm3 (1.96-9.15); NEUTROPHILS PERCENT AUTO 46 % (41-73); Platelet Count 391 K/mm3 (150-400); RDW Coefficient Variation 17.9 % (11.7-14.2); RDW Standard Deviation 62.2 fL (35.1-46.3); White Blood Cell Count 9.47 K/mm3 (4.00-11.30)
[2024-04-01 06:44] LABS: Albumin, Blood 2.1 g/dL (3.4-5.0); Albumin/Globulin Ratio 0.5 (0.8-1.8); Bilirubin, Total 0.3 mg/dL (0.1-1.0); Bun/Creatinine Ratio 17.1 (12.0-20.0); Calcium, Blood 8.7 mg/dL (8.5-10.1); Creatinine, Blood 0.47 mg/dL (0.40-1.00); Globulin, Blood 4.1 g/dL (2.2-4.0); Potassium, Blood 3.5 mmol/L (3.5-5.5); Total Protein, Blood 6.2 g/dL (6.4-8.2)
[2024-04-01] MEDS ORDERED: Metoprolol Succinate 25 MG TABCR PO STA (12:08)
--- NOTE | 2024-04-01 13:44 | NUR ---
CALLED DR ARNOLD- PT HR HAS BEEN ELEVATED T/O THE SHIFT 130'S-140'S. HE IS AWARE. AM DOSE METOPROLOL WAS GIVEN WITH LITTLE TO NO IMPROVEMENT. SPOKE TO HIM AROUND 1200 AND A NOW DOSE WAS RECIEVED AND ADMINISTERED. HR STILL TRENDING 130-140'S. OT 5MG IV METOPROLOL DOSE WAS ORDERED. WILL ADMINISTER ONCE MED IS VERIFIED BY PHARMACY.
--- NOTE | 2024-04-01 14:21 | NUR ---
PT RECIEVED IV METOPROLOL TARTRATE- PER PHARMACY PUSH RATE IS OVER 1 MINUTE. PUSHED OVER 2 MINS, FLUSHED FOR ADDITIONAL MINUTE. HR 15 MINUTES AFTER PUSH IS REDUCED TO 110'S-120'S. TELE WILL CTM AND CALL IF HR TRENDS BACK UP TO THE 130-140 RANGE IT WAS PRIOR TO IV PUSH.
[2024-04-01 17:49] LABS: Calcium, Blood 8.5 mg/dL (8.5-10.1); Creatinine, Blood 0.63 mg/dL (0.40-1.00); Magnesium, Blood 1.7 mg/dL (1.6-2.4); Phosphorus, Blood 2.5 mg/dL (2.5-4.9); Potassium, Blood 4.1 mmol/L (3.5-5.5)
--- NOTE | 2024-04-01 18:11 | NUR ---
SHIFT SUMMARY- PT ALERT AND ORIENTED TO SELF AND FAMILY. THE PT HAS BEEN REPOSITIONED Q2, SHE HAS HAD A TACHY HR 120-150 OFF AND ON T/O THE SHIFT AFIB. SHE TRANSITIONED TO A-FIB AT 0400 THIS MORNING, SHE HAS RECIEVED 2 IV DOSES WELL HER PO DOSE AND AN ADDITIONAL PO, DOSE INCREASE, CATCH UP DOSE OF METOPROLOL. CALLED DR ARNOLD AFTER THE PT HAD 6 BEATS OF V-TACH AND RECIEVED LAB ORDERS. CALLED AT 1815 ABOUT THE LABS AND TO SEE IF HE WANTED ANOTHER PRN DOSE OF IV METOPROLOL. NO NEW ORDERS AT THIS TIME. DR AWARE PT HR TRENDING A-FIB 120-130. PT IS IN BED, CALL LIGHT IN REACH, SHE DENIES SOB (RESP RATE 22-24) O2 SATS 90-92%, VEWS SCORE 4-5. NO S&S OF DISTRESS. PT APPEARS COMFORTABLE AT THIS TIME.
[2024-04-01] MEDS ORDERED: Lidocaine 5% Ointment 35 gm TOP SCH (21:00)
[2024-04-01] MEDS ORDERED: Metoprolol Tartrate 25 MG Tab PO ONE (22:00)
[2024-04-02] VITALS (9 sets, daily range): BP systolic 121–149; BP diastolic 79–104
--- NOTE | 2024-04-02 04:15 | NUR ---
SHIFT SUMMARY ADMITTED FOR UTI/SEPSIS. FULL CODE. SUPRAPUBIC CATHETER IN PLACE. TELEMETRY: AFIB @ 130 BPM. LIFT PATIENT. SHE IS NONSENSICAL AT TIMES. STAGE 2 PRESSURE ULCER ON COCCYX. PLAN IS FOR DC HOME W/HH WHEN STABLE. ANTIB RX ARE NOW PO. SHE IS ON RA. SHE IS ON ELIQUIS. REGULAR DIET.
[2024-04-02 06:55] LABS: BASOPHILS ABSOLUTE AUTO 0.08 K/mm3 (0.00-0.23); BASOPHILS PERCENT AUTO 1 % (0-2); EOSINOPHILS ABSOLUTE AUTO 0.38 K/mm3 (0.00-0.68); EOSINOPHILS PERCENT AUTO 4 % (0-6); Hematocrit 36.4 % (33.0-51.0); Hemoglobin 11.6 g/dL (11.5-16.0); IMMATURE GRAN ABSOLUTE AUTO 0.15 K/mm3 (0.00-0.10); IMMATURE GRAN PERCENT AUTO 1 % (0-1); LYMPHOCYTES ABSOLUTE AUTO 4.42 K/mm3 (0.84-5.20); LYMPHOCYTES PERCENT AUTO 42 % (21-46); MONOCYTES ABSOLUTE AUTO 1.02 K/mm3 (0.16-1.47); MONOCYTES PERCENT AUTO 10 % (4-13); Mean Corpuscular HGB 29.9 pg (26.0-34.0); Mean Corpuscular HGB Conc 31.9 g/dL (31.5-36.5); Mean Corpuscular Volume 94 fL (80-100); Mean Platelet Volume 9.2 fL (9.1-12.4); NEUTROPHILS PERCENT AUTO 43 % (41-73); Platelet Count 433 K/mm3 (150-400); RDW Coefficient Variation 18.2 % (11.7-14.2); RDW Standard Deviation 62.7 fL (35.1-46.3); Red Blood Cell Count 3.88 M/mm3 (3.80-5.20); White Blood Cell Count 10.65 K/mm3 (4.00-11.30)
[2024-04-02 07:16] LABS: Bun/Creatinine Ratio 23.4 (12.0-20.0); Calcium, Blood 8.9 mg/dL (8.5-10.1); Creatinine, Blood 0.56 mg/dL (0.40-1.00); Potassium, Blood 3.7 mmol/L (3.5-5.5)
--- NOTE | 2024-04-02 07:42 | NUR ---
CALLED DR ARNOLD- PT HR CONTINUES TO BE 120-130'S AFIB. PER TACK CUTTER ISAAC PT HR HAS NOT DROPPED BELOW 100 SINCE SHE CONVERTED TO AFIB. DR ARNOLD IS AWARE. INCREASED DOSE FOR PO METOPROLOL ORDERED FOR THIS AM WILL ADMINISTER ONCE VERIFIED BY PHARMACY. PT CONTINUES TO DENY SOB, RESP RATE IS GREATER THAN 20 AND O2 SATS 90% ON ROOM AIR. PT SEEMS MORE EXHAUSTED THIS AM COMPARED TO YESTERDAY.
[2024-04-02] MEDS ORDERED: Metoprolol Succinate 50 MG TABCR PO SCH ×2 (09:00)
[2024-04-02] MEDS ORDERED: dilTIAZem HCL 30 MG TAB PO PRN (11:10)
[2024-04-02] MEDS ORDERED: dilTIAZem HCL 30 MG TAB PO SCH (12:00)
[2024-04-02] MEDS ORDERED: dilTIAZem HCL 60 MG TAB PO SCH (18:00)
--- NOTE | 2024-04-02 19:57 | NUR ---
SHIFT SUMMARY- PT ALERT AND ORIENTED, WOUND CARE COMPLETED, PT HAD A LARGE STOOL TODAY. RADHA CARE PERFORMED, PT SAYS INAPPROPRIATE THINGS TO STAFF WHEN SHE IS BEING CLEANED. SHE SAYS THOSE THINGS WHEN MEDS ARE BEING APPLIED ORDERED BY MD WELL. LIDOCAIN GEL WAS APPLIED ORDERED, HOWEVER 2 STAFF SHOULD BE PRESENT FOR THESE TASKS THE PT SAYS INAPPROPRIATE THINGS TO STAFF ATTEMPTING TO CARE FOR HER. PT HR CONTINUES TO BE ELEVATED 60MG CARDIZIEM PO WAS GIVEN PRIOR TO SHIFT CHANGE, HR RUNNING 110-120'S. MD AWARE MEDS ARE BEING ADJUSTED. ONCE THE PT AFIB RATE IS MANAGED THE PLAN IS FOR HER TO DC HOME WITH HOME HEALTH. PT REFUSES SNF.
[2024-04-02] MEDS ORDERED: Metoprolol Succinate 50 MG TABCR PO ONE (23:00)
[2024-04-03 00:03] VITALS: BP 128/103
--- NOTE | 2024-04-03 02:47 | NUR ---
*LATE ENTRY* MEDICATION ADMIN I DID CALL THE HOSPITALIST TO VERIFY THAT I SHOULD GIVE METOPROLOL (ONE TIME DOSE) AND CARDIZEM. VERIFIED WITH HIM VITALS AND TELEMETRY. DOSES APPROVED, MEDICATION GIVEN ORDERED.
--- NOTE | 2024-04-03 04:07 | NUR ---
SHIFT SUMMARY ADMITTED FOR UTI/SEPSIS. FULL CODE. PRESSURE ULCER ON LEFT BUTTOCK. CHRONIC SUPRAPUBIC CATHETER IN PLACE. TELEMETRY: AFIB @ 109 BPM AT THE TIME OF THIS WRITING. WE HAVE BEEN CHASING HR'S UP TO 130'S BPM SINCE ADMIT. COG EVAL PERFORMED ON 03/27/2024 SHOWS 10/09. NONSENSICAL AND/OR INAPPROPRIATE SPEECH AT TIMES. PLAN IS FOR DC HOME W/HH WHEN STABLE. LIFT PATIENT. PO ANTI B RX ARE SCHEDULED. ON RA. ON ELIQUIS.
[2024-04-03 04:58] VITALS: BP 150/86
[2024-04-03 04:59] VITALS: BP 150/86
[2024-04-03 05:37] LABS: BASOPHILS ABSOLUTE AUTO 0.08 K/mm3 (0.00-0.23); BASOPHILS PERCENT AUTO 1 % (0-2); EOSINOPHILS ABSOLUTE AUTO 0.41 K/mm3 (0.00-0.68); EOSINOPHILS PERCENT AUTO 4 % (0-6); Hematocrit 35.2 % (33.0-51.0); Hemoglobin 11.2 g/dL (11.5-16.0); IMMATURE GRAN ABSOLUTE AUTO 0.12 K/mm3 (0.00-0.10); IMMATURE GRAN PERCENT AUTO 1 % (0-1); LYMPHOCYTES ABSOLUTE AUTO 4.41 K/mm3 (0.84-5.20); LYMPHOCYTES PERCENT AUTO 44 % (21-46); MONOCYTES ABSOLUTE AUTO 0.97 K/mm3 (0.16-1.47); MONOCYTES PERCENT AUTO 10 % (4-13); Mean Corpuscular HGB 29.9 pg (26.0-34.0); Mean Corpuscular HGB Conc 31.8 g/dL (31.5-36.5); Mean Corpuscular Volume 94 fL (80-100); Mean Platelet Volume 9.2 fL (9.1-12.4); NEUTROPHILS ABSOLUTE AUTO 4.12 K/mm3 (1.96-9.15); NEUTROPHILS PERCENT AUTO 41 % (41-73); NRBC ABSOLUTE 0.02 K/mm3 (0.00-0.02); NRBC Auto 0.2 /100 WBC (0.0-0.2); Platelet Count 402 K/mm3 (150-400); RDW Standard Deviation 62.3 fL (35.1-46.3); Red Blood Cell Count 3.74 M/mm3 (3.80-5.20); White Blood Cell Count 10.11 K/mm3 (4.00-11.30)
[2024-04-03 06:00] LABS: Albumin, Blood 2.2 g/dL (3.4-5.0); Albumin/Globulin Ratio 0.6 (0.8-1.8); Bilirubin, Total 0.4 mg/dL (0.1-1.0); Creatinine, Blood 0.52 mg/dL (0.40-1.00); Globulin, Blood 3.9 g/dL (2.2-4.0); Potassium, Blood 3.9 mmol/L (3.5-5.5); Total Protein, Blood 6.1 g/dL (6.4-8.2)
[2024-04-03 07:13] VITALS: BP 132/75
[2024-04-03 12:04] VITALS: BP 153/86
[2024-04-03] MEDS ORDERED: AMOCLA875 PO (14:08)
[2024-04-03] MEDS ORDERED: METO25ER PO (14:08)
[2024-04-03] MEDS ORDERED: JUVEN PACKET1 EAC3 PO (14:09)
[2024-04-03] MEDS ORDERED: DILTIAZEM 24HR240 M4 PO (14:10)
--- NOTE | 2024-04-03 15:57 | NUR ---
DISCHARGE NOTE- PT WAS GIVEN VERBAL AND WRITTEN DISCHARGE INSTRUCTIONS. SPOUSE WAS PRESENT AT THE TIME OF DISCHARGE TEACHING. PT WAS TAKEN VIA GURNEY TRANSPORT TO HER HOME. NO S&S OF DISTRESS NOTED AT THE TIME OF DISCHARGE. IV AND TELE DC'D PRIOR TO DISCHARGE.
== END 2024-04-03 15:53 | disposition home health service (06) | DRG 981 ==
LOC: ER 12:33 → MEDS 18:50 → ENPENDDIS 04-03 13:22 → MEDS 04-03 15:53
PROVIDERS: Emergency Medicine; Internal Medicine; ADMIT Internal Medicine
PROC: 0YQ Anatomical Regions, Lower Extremities, Repair (ICD-10-PCS; principal; 2024-03-23)
PROC: 3E03329 Introduction of Other Anti-infective into Peripheral Vein, Percutaneous Approach (ICD-10-PCS; 2024-03-23)
DX: T83.510A Infection and inflammatory reaction due to cystostomy catheter, initial encounter (principal); A41.81 Sepsis due to Enterococcus; L89.153 Pressure ulcer of sacral region, stage 3; G93.41 Metabolic encephalopathy; A41.89 Other specified sepsis; Z68.43 Body mass index [BMI] 50.0-59.9, adult; N39.0 Urinary tract infection, site not specified; E87.20 Acidosis, unspecified; I50.32 Chronic diastolic (congestive) heart failure; D68.59 Other primary thrombophilia; L03.312 Cellulitis of back [any part except buttock and flank]; E11.9 Type 2 diabetes mellitus without complications; M19.90 Unspecified osteoarthritis, unspecified site; E78.5 Hyperlipidemia, unspecified; G89.4 Chronic pain syndrome; F03.90 Unspecified dementia, unspecified severity, without behavioral disturbance, psychotic disturbance, mood disturbance, and anxiety; S91.114A Laceration without foreign body of right lesser toe(s) without damage to nail, initial encounter; W07.XXXA Fall from chair, initial encounter; R33.9 Retention of urine, unspecified; I11.0 Hypertensive heart disease with heart failure; S92.501A Displaced unspecified fracture of right lesser toe(s), initial encounter for closed fracture; A60.04 Herpesviral vulvovaginitis; E66.01 Morbid (severe) obesity due to excess calories; M10.9 Gout, unspecified; B96.1 Klebsiella pneumoniae [K. pneumoniae] as the cause of diseases classified elsewhere; B96.4 Proteus (mirabilis) (morganii) as the cause of diseases classified elsewhere; I48.91 Unspecified atrial fibrillation; Z79.01 Long term (current) use of anticoagulants; Z79.899 Other long term (current) drug therapy; Z87.19 Personal history of other diseases of the digestive system; Z85.3 Personal history of malignant neoplasm of breast; Z90.12 Acquired absence of left breast and nipple; Z79.890 Hormone replacement therapy; Z86.19 Personal history of other infectious and parasitic diseases; Z88.5 Allergy status to narcotic agent; Z88.6 Allergy status to analgesic agent; Z86.711 Personal history of pulmonary embolism
CPT/HCPCS: 0241U; 36415; 70450; 71045; 74177; 80048; 80053; 81001; 83605; 83735; 84100; 84145; 85025; 87040; 87070; 87075; 87077; 87086; 87147; 87186; 87205; 93306; 94760; 96365-59; 97110; 97129; 97130; 97162; 97165; 97530; 99285-25; A9270; J0692; J0696; J2060; J2270; J2543; J3010; J3475; J7030; Q9967

== ENCOUNTER 2024-04-08 15:16 | Emergency (ER) | payer OTHER ==
[~2024-04-08] VITALS: Ht 162.6 cm; Wt 136.1 kg
[~2024-04-08 15:16] MED LIST changes: +DILTIAZEM 24HR240 M4 PO; +ELIQUIS5 M2 PO; +JUVEN PACKET1 EAC3 PO; +LORA10ER PO; +Norco 5-325 Ta1 EACH PO; +TOLT2 PO
[2024-04-08 16:38] LABS: BASOPHILS ABSOLUTE AUTO 0.13 K/mm3 (0.00-0.23); BASOPHILS PERCENT AUTO 1 % (0-2); EOSINOPHILS ABSOLUTE AUTO 0.19 K/mm3 (0.00-0.68); EOSINOPHILS PERCENT AUTO 1 % (0-6); Hematocrit 38.4 % (33.0-51.0); Hemoglobin 12.4 g/dL (11.5-16.0); IMMATURE GRAN ABSOLUTE AUTO 0.05 K/mm3 (0.00-0.10); IMMATURE GRAN PERCENT AUTO 0 % (0-1); LYMPHOCYTES PERCENT AUTO 32 % (21-46); MONOCYTES ABSOLUTE AUTO 1.09 K/mm3 (0.16-1.47); MONOCYTES PERCENT AUTO 8 % (4-13); Mean Corpuscular HGB Conc 32.3 g/dL (31.5-36.5); Mean Corpuscular Volume 93 fL (80-100); NEUTROPHILS ABSOLUTE AUTO 7.68 K/mm3 (1.96-9.15); NEUTROPHILS PERCENT AUTO 58 % (41-73); Platelet Count 479 K/mm3 (150-400); RDW Coefficient Variation 17.3 % (11.7-14.2); RDW Standard Deviation 60.4 fL (35.1-46.3); Red Blood Cell Count 4.13 M/mm3 (3.80-5.20); White Blood Cell Count 13.34 K/mm3 (4.00-11.30)
[2024-04-08 17:04] LABS: Albumin, Blood 2.7 g/dL (3.4-5.0); Albumin/Globulin Ratio 0.6 (0.8-1.8); Bilirubin, Total 0.6 mg/dL (0.1-1.0); Bun/Creatinine Ratio 13.6 (12.0-20.0); Calcium, Blood 8.6 mg/dL (8.5-10.1); Creatinine, Blood 0.66 mg/dL (0.40-1.00); Globulin, Blood 4.9 g/dL (2.2-4.0); Potassium, Blood 4.3 mmol/L (3.5-5.5); Total Protein, Blood 7.6 g/dL (6.4-8.2)
[2024-04-08] MEDS ORDERED: DOXY100 PO (19:03)
[2024-04-08] MEDS ORDERED: CEFP200 PO (19:03)
[2024-04-08 19:30] VITALS: BP 140/77
== END 2024-04-08 20:00 | disposition home or self-care (01) ==
LOC: ER 15:16
PROVIDERS: Student in an Organized Health Care Education/Training Program
DX: L89.313 Pressure ulcer of right buttock, stage 3 (principal); D72.829 Elevated white blood cell count, unspecified; E11.9 Type 2 diabetes mellitus without complications; I10 Essential (primary) hypertension; F03.90 Unspecified dementia, unspecified severity, without behavioral disturbance, psychotic disturbance, mood disturbance, and anxiety; Z88.5 Allergy status to narcotic agent; Z88.8 Allergy status to other drugs, medicaments and biological substances; Z79.890 Hormone replacement therapy; Z79.899 Other long term (current) drug therapy; Z79.01 Long term (current) use of anticoagulants; Z96.653 Presence of artificial knee joint, bilateral
CPT/HCPCS: 36415; 80053; 83605; 85025; 87040; 99283

== ENCOUNTER 2024-04-15 12:53 | Emergency (ER) | payer OTHER ==
[~2024-04-15] VITALS: Ht 170.2 cm; Wt 101.2 kg
[~2024-04-15 12:53] MED LIST changes: +CEFP200 PO; +DOXY100 PO
[2024-04-15 14:20] LABS: Hemoglobin 11.7 g/dL (11.5-16.0); Mean Corpuscular HGB Conc 32.5 g/dL (31.5-36.5); Mean Corpuscular Volume 92 fL (80-100); Mean Platelet Volume 10.1 fL (9.1-12.4); Platelet Count 360 K/mm3 (150-400); RDW Coefficient Variation 16.7 % (11.7-14.2); RDW Standard Deviation 56.4 fL (35.1-46.3); White Blood Cell Count 13.61 K/mm3 (4.00-11.30)
[2024-04-15 14:34] LABS: Albumin, Blood 2.6 g/dL (3.4-5.0); Albumin/Globulin Ratio 0.6 (0.8-1.8); Bilirubin, Total 0.4 mg/dL (0.1-1.0); Bun/Creatinine Ratio 20.5 (12.0-20.0); Creatinine, Blood 0.68 mg/dL (0.40-1.00); Globulin, Blood 4.5 g/dL (2.2-4.0); Potassium, Blood 4.7 mmol/L (3.5-5.5); Total Protein, Blood 7.1 g/dL (6.4-8.2)
[2024-04-15 15:08] LABS: BAND PERCENT MAN 1 % (0-8); BASOPHILS PERCENT MAN 0 % (0-2); EOSINOPHILS PERCENT MAN 0 % (0-6); LYMPHOCYTES ABSOLUTE MAN 4.49 K/mm3 (0.84-5.20); LYMPHOCYTES PERCENT MAN 33 % (21-46); MONOCYTES ABSOLUTE MAN 1.36 K/mm3 (0.16-1.47); MONOCYTES PERCENT MAN 10 % (4-13); NEUTROPHILS ABSOLUTE MAN 7.75 K/mm3 (1.96-9.15); SEG NEUTROPHILS PERCENT MAN 56 % (41-73); TOTAL CELLS COUNTED 100
[2024-04-15 18:30] VITALS: BP 105/62
== END 2024-04-15 18:47 | disposition home or self-care (01) ==
LOC: ER 12:53
PROVIDERS: Emergency Medicine
DX: L89.309 Pressure ulcer of unspecified buttock, unspecified stage (principal); E11.9 Type 2 diabetes mellitus without complications; I10 Essential (primary) hypertension; E78.5 Hyperlipidemia, unspecified; F03.90 Unspecified dementia, unspecified severity, without behavioral disturbance, psychotic disturbance, mood disturbance, and anxiety; Z88.6 Allergy status to analgesic agent; Z88.5 Allergy status to narcotic agent; Z79.01 Long term (current) use of anticoagulants; Z79.890 Hormone replacement therapy; Z79.899 Other long term (current) drug therapy
CPT/HCPCS: 36415; 80053; 83605; 85025; 99283

== ENCOUNTER 2024-04-22 16:22 | Inpatient (IN) | payer OTHER ==
[~2024-04-22] VITALS: Ht 167.6 cm; Wt 98.2 kg
[~2024-04-22 16:22] MED LIST changes: -TOLT2 PO; +TOLTERODINE TART1 MG PO; -ZESTRIL40 M1 PO
[2024-04-22 19:44] LABS: BASOPHILS ABSOLUTE AUTO 0.08 K/mm3 (0.00-0.23); BASOPHILS PERCENT AUTO 1 % (0-2); EOSINOPHILS ABSOLUTE AUTO 0.01 K/mm3 (0.00-0.68); EOSINOPHILS PERCENT AUTO 0 % (0-6); Hematocrit 38.5 % (33.0-51.0); Hemoglobin 12.5 g/dL (11.5-16.0); IMMATURE GRAN ABSOLUTE AUTO 0.09 K/mm3 (0.00-0.10); IMMATURE GRAN PERCENT AUTO 1 % (0-1); LYMPHOCYTES ABSOLUTE AUTO 2.78 K/mm3 (0.84-5.20); LYMPHOCYTES PERCENT AUTO 18 % (21-46); MONOCYTES ABSOLUTE AUTO 1.38 K/mm3 (0.16-1.47); MONOCYTES PERCENT AUTO 9 % (4-13); Mean Corpuscular HGB Conc 32.5 g/dL (31.5-36.5); Mean Corpuscular Volume 92 fL (80-100); Mean Platelet Volume 9.7 fL (9.1-12.4); NEUTROPHILS PERCENT AUTO 72 % (41-73); Platelet Count 365 K/mm3 (150-400); RDW Standard Deviation 54.1 fL (35.1-46.3); Red Blood Cell Count 4.17 M/mm3 (3.80-5.20); White Blood Cell Count 15.34 K/mm3 (4.00-11.30)
[2024-04-22] MEDS ORDERED: Piperacillin/Tazobactam Sod 3.375 GM in NS 100 ML IV ONE (20:00)
[2024-04-22 20:07] LABS: Albumin, Blood 2.3 g/dL (3.4-5.0); Albumin/Globulin Ratio 0.5 (0.8-1.8); Bilirubin, Total 0.4 mg/dL (0.1-1.0); Bun/Creatinine Ratio 29.4 (12.0-20.0); Calcium, Blood 8.7 mg/dL (8.5-10.1); Creatinine, Blood 0.58 mg/dL (0.40-1.00); Globulin, Blood 5.1 g/dL (2.2-4.0); Potassium, Blood 4.6 mmol/L (3.5-5.5); Total Protein, Blood 7.4 g/dL (6.4-8.2)
[2024-04-22] MEDS ORDERED: FLU VACC TS2024-25(6MOS UP)/PF 45 MCG/0.5 ML SYRINGE IM ONE (21:10)
[2024-04-22] MEDS ORDERED: HYDROcodone 5-APAP 325 TAB PO PRN (21:15)
[2024-04-22] MEDS ORDERED: Loratadine 10 MG Tab PO PRN (21:15)
[2024-04-22] MEDS ORDERED: Acetaminophen 325 MG TABLET PO PRN (21:15)
[2024-04-22] MEDS ORDERED: Lidocaine 5% Ointment 35 gm TOP PRN (21:20)
[2024-04-22] MEDS ORDERED: Albuterol HFA200 ACT/6.7 GM INH INH PRN (21:35)
[2024-04-22 21:48] LABS: C-REACTIVE PROTEIN, EXT RANGE 16.1 mg/dL (0.000-0.300)
[2024-04-22 21:50] LABS: Source, Urine Foley catheter
[2024-04-22 21:54] LABS: Bilirubin, Urine Neg (Neg); Blood, Urine 5+ (Neg); Glucose Qualitative, Urine Neg (Neg); Ketones, Urine 1+ (Neg); Leukocyte Esterase, Urine 3+ (Neg); Nitrite, Urine Neg (Neg); Protein, Urine 3+ (Neg); Urobilinogen, Urine NORM (Normal)
[2024-04-22] MEDS ORDERED: HYDROmorphone HCl/Pf 1MG SYR IV ONE (22:00)
[2024-04-22] MEDS ORDERED: HYDROmorphone HCl/Pf 1MG SYR IV PRN (22:00)
[2024-04-22 22:04] LABS: Appearance, Urine Cloudy (Clear); Color, Urine Yellow (P-Yellow)
[2024-04-22 22:05] LABS: Bacteria Many /hpf; Squamous Epithelial Cells Many /hpf (Few); White Blood Cells, Urine TNTC /hpf (0-5)
[2024-04-22 22:09] LABS: Thyroid Stimulating Hormone 1.2 uIU/mL (0.360-4.800)
[2024-04-23] VITALS (13 sets, daily range): BP systolic 94–158; BP diastolic 52–83
[2024-04-23] MEDS ORDERED: Insulin Regular 100 UNIT/ML 10ML Vial SC SCH
[2024-04-23 04:23] LABS: Source, Urine Suprapubic Cath
[2024-04-23 04:30] LABS: Bilirubin, Urine Neg (Neg); Blood, Urine 3+ (Neg); Glucose Qualitative, Urine Neg (Neg); Ketones, Urine Neg (Neg); Leukocyte Esterase, Urine 3+ (Neg); Nitrite, Urine Neg (Neg); Protein, Urine 2+ (Neg); Urobilinogen, Urine NORM (Normal)
[2024-04-23 04:53] LABS: Appearance, Urine Cloudy (Clear); Bacteria Many /hpf; Color, Urine Yellow (P-Yellow); Squamous Epithelial Cells Mod /hpf (Few); White Blood Cells, Urine TNTC /hpf (0-5); Yeast/Fungi Urine Mod /hpf
[2024-04-23] MEDS ORDERED: NS 250 ML IV PRN (04:55)
--- NOTE | 2024-04-23 05:11 | NUR ---
PT ARRIVED TO MEDICAL FLOOR @0245 VIA GURNEY AND TRANSPORTED BY ER STAFF MEMBER. PT TRANSFERRED TO HOSPITAL BED BY SLIDING. NO PERSONAL BELONINGS OR MEDICATIONS WITH HER. PT IS NPO AND ORDER IS Q6HRS BG MONITORING D/T SURGICAL CONSULTATION THIS AM. CHARGE NURSE MILVIA COMPLETED THE ADMISSION ASSESSMENT, SKIN CHECK WITH EMA SORIANO. PICTURES ARE IN CHART OPF THE DECUBITUS ULCER OF COCCYX/SACRAL AREA, TAKEN EARLY THIS AM. PT VOCALIZES PAIN BY SCREAMING WHEN GIVING CARE/ADL'S. PT MEDICATED FOR PAIN X2. SEE EMAR. PT IS NOT CONSOLABLE, NOR REDIRECTABLE AT THIS TIME WHEN ASSURING FOR SAFETY AND COMMUNICATING WITH THE PT. PT USES SARCASTIC HUMOR. PT'S SUPRAPUBIC CATHETER WAS CHANGED, URINE SAMPLE COLLECTED AND SENT TO LAB EARLY THIS AM. BED ALARM FOR SAFETY, PT IS A&O X2-3, HX OF DEMENTIA. NO ACUTE EVENTS THIS SHIFT. CALL LIGHT WITHIN REACH.
[2024-04-23 05:30] LABS: BASOPHILS ABSOLUTE AUTO 0.09 K/mm3 (0.00-0.23); BASOPHILS PERCENT AUTO 1 % (0-2); EOSINOPHILS ABSOLUTE AUTO 0.01 K/mm3 (0.00-0.68); EOSINOPHILS PERCENT AUTO 0 % (0-6); Hematocrit 34.9 % (33.0-51.0); Hemoglobin 11.3 g/dL (11.5-16.0); IMMATURE GRAN PERCENT AUTO 1 % (0-1); LYMPHOCYTES ABSOLUTE AUTO 2.98 K/mm3 (0.84-5.20); LYMPHOCYTES PERCENT AUTO 22 % (21-46); MONOCYTES ABSOLUTE AUTO 1.46 K/mm3 (0.16-1.47); MONOCYTES PERCENT AUTO 11 % (4-13); Mean Corpuscular HGB 29.7 pg (26.0-34.0); Mean Corpuscular HGB Conc 32.4 g/dL (31.5-36.5); Mean Corpuscular Volume 92 fL (80-100); NEUTROPHILS ABSOLUTE AUTO 8.83 K/mm3 (1.96-9.15); NEUTROPHILS PERCENT AUTO 66 % (41-73); Platelet Count 361 K/mm3 (150-400); RDW Coefficient Variation 15.9 % (11.7-14.2); RDW Standard Deviation 53.7 fL (35.1-46.3); Red Blood Cell Count 3.81 M/mm3 (3.80-5.20); White Blood Cell Count 13.47 K/mm3 (4.00-11.30)
[2024-04-23] MEDS ORDERED: Levothyroxine Sodium 0.075 MG Tab PO SCH (06:00)
[2024-04-23] MEDS ORDERED: Cefepime HCl 1,000 MG in NS 100 ML IV SCH (06:00)
[2024-04-23 06:17] LABS: Albumin, Blood 2.1 g/dL (3.4-5.0); Albumin/Globulin Ratio 0.4 (0.8-1.8); Bilirubin, Total 0.6 mg/dL (0.1-1.0); Bun/Creatinine Ratio 26.1 (12.0-20.0); Calcium, Blood 8.4 mg/dL (8.5-10.1); Creatinine, Blood 0.77 mg/dL (0.40-1.00); Globulin, Blood 4.7 g/dL (2.2-4.0); Potassium, Blood 4.4 mmol/L (3.5-5.5); Total Protein, Blood 6.8 g/dL (6.4-8.2)
[2024-04-23] MEDS ORDERED: Trospium Chloride 20 MG Tab PO SCH (07:00)
[2024-04-23] MEDS ORDERED: Arginine/Glutamine/Calcium Hmb 1 Packet PO SCH (09:00)
[2024-04-23] MEDS ORDERED: dilTIAZem HCL 240 MG CAP.CD PO SCH (09:00)
[2024-04-23] MEDS ORDERED: AmLODIPine Besylate 5 MG Tab PO SCH (09:00)
[2024-04-23] MEDS ORDERED: Metoprolol Succinate 50 MG TABCR PO SCH (09:00)
[2024-04-23] MEDS ORDERED: Allopurinol 100 MG Tab PO SCH (09:00)
[2024-04-23] MEDS ORDERED: Acyclovir 400 MG Tab PO SCH (09:00)
[2024-04-23] MEDS ORDERED: Spironolactone 12.5 MG TAB PO SCH (09:00)
[2024-04-23] MEDS ORDERED: Piperacillin/Tazobactam Sod 3.375 GM in NS 100 ML IV SCH (12:00)
--- NOTE | 2024-04-23 14:27 | NUR ---
LUDWIG AND AD OBTAINED FROM PRIMARY CARE OFFICE. COPY FAXED TO [facility].
[2024-04-23] MEDS ORDERED: Lactated Ringer's 1,000 ML IV SCH (15:55)
--- NOTE | 2024-04-23 18:35 | NUR ---
SHIFT SUMMARY PT A&O TO SELF ONLY, VSS, BEDRIDDEN AT THIS TIME, NPO, VOIDING, AND PAIN MANAGED PER EMAR. MEPILEX CHANGED SEVERAL TIMES T/O SHIFT. WOUND ODOROUS W/ MODERATE DRAINAGE. SURGERY CONSULTED AND PLAN FOR DIBRIDEMENT TONIGHT. PT ON 2L O2 NC DUE TO DESAT IN THE 80'S THIS AM. CALL LIGHT WITHIN REACH.
[2024-04-23] MEDS ORDERED: Lactated Ringer's 1,000 ML IV ONE (19:59)
[2024-04-23] MEDS ORDERED: Sodium Hypochlorite 0.125% 473 ML BTL TOP ONE (20:15)
--- NOTE | 2024-04-23 20:22 | NUR ---
PT BROUGHT DOWN TO DAY SURGERY/PACU TO BE MADE READY FOR SURGERY. PT AND VERIFIED PTS ID AND CONSENT VERIFIED. BLOOD CONSENT SIGNED. VSS, CHEM BG 114 @1952. PT APPEARS CONFUSED, HX OF DEMENTIA. PAINFUL WHEN MOVED OR TOUCHED. OVERALL SKIN IN POOR CONDITION. JOHNSON IN PLACE, IV RIGHT HAND FLUSHED AND CONNECTED TO 1L LR TKO PER ACP. SURGEON AND ACP IN TO SEE PT. BROUGHT TO BEDSIDE. WARM BLANKETS PROVIDED. JEWELERY REMOVED AND LABELED, GIVEN TO PTS TO TAKE. REPORT GIVEN TO OR NURSE.
[2024-04-23] MEDS ORDERED: propofoL 20 ML IV ONE (20:28)
[2024-04-23] MEDS ORDERED: FentaNYL Citrate 50 MCG/ML 2 ML Injection ONE (20:29)
[2024-04-23] MEDS ORDERED: Rocuronium Bromide 10 MG/ML 5ML Injection IV ONE (20:33)
[2024-04-23] MEDS ORDERED: Phenylephrine HCl 100 MCG/ML-NS 10MLSYR (1MG/10ML) ONE ×2 (20:57→21:16)
[2024-04-23] MEDS ORDERED: Lactobacil 2-S.Thermo-Bifido 1 1 Cap PO SCH (21:00)
[2024-04-23] MEDS ORDERED: Lisinopril 20 MG Tab PO SCH (21:00)
[2024-04-23] MEDS ORDERED: Ondansetron HCl 2 MG / ML 2ML Vial ONE (21:22)
[2024-04-23] MEDS ORDERED: Sugammadex Sodium 200 MG/2ML SDV (100 MG/ML) ONE ×2 (21:23→21:26)
[2024-04-24] VITALS (9 sets, daily range): BP systolic 90–119; BP diastolic 45–62
--- NOTE | 2024-04-24 02:58 | NUR ---
SHIFT SUMMARY PT RETURNED FROM ICU AFTER I&D PROCEDURE APPROXIMATELY 2345 DURING THIS SHIFT. PT ALERT, ORIENTED TO SELF (BASELINE.) BY THE BEDSIDE. PT ANGRY WITH WHO LEFT IN TEARS. PT MEDICATED POST OP WITH DILAUDID AND NORCO. FACE SCALE 8-9/10. VSS. O2 @2L VIA NASAL CANNULA (BASELINE RA), O2 SAT'S 95%. PT RESTING T/O THIS SHIFT, ALERT WHEN INTERACTING WITH STAFF. LOCALIZES PAIN. NO PO INTAKE BTW. [phone]. B. BED AT THE LOWEST POSITION, CALL LIGHT IN REACH. PT IS ABLE TO MAKE HER NEEDS KNOWN.
[2024-04-24 05:39] LABS: BASOPHILS ABSOLUTE AUTO 0.07 K/mm3 (0.00-0.23); BASOPHILS PERCENT AUTO 1 % (0-2); EOSINOPHILS ABSOLUTE AUTO 0.07 K/mm3 (0.00-0.68); EOSINOPHILS PERCENT AUTO 1 % (0-6); Hemoglobin 10.2 g/dL (11.5-16.0); IMMATURE GRAN ABSOLUTE AUTO 0.08 K/mm3 (0.00-0.10); IMMATURE GRAN PERCENT AUTO 1 % (0-1); LYMPHOCYTES ABSOLUTE AUTO 3.29 K/mm3 (0.84-5.20); LYMPHOCYTES PERCENT AUTO 28 % (21-46); MONOCYTES ABSOLUTE AUTO 1.21 K/mm3 (0.16-1.47); MONOCYTES PERCENT AUTO 10 % (4-13); Mean Corpuscular HGB 29.7 pg (26.0-34.0); Mean Corpuscular HGB Conc 31.9 g/dL (31.5-36.5); Mean Corpuscular Volume 93 fL (80-100); Mean Platelet Volume 9.7 fL (9.1-12.4); NEUTROPHILS ABSOLUTE AUTO 6.97 K/mm3 (1.96-9.15); NEUTROPHILS PERCENT AUTO 60 % (41-73); Platelet Count 366 K/mm3 (150-400); Red Blood Cell Count 3.44 M/mm3 (3.80-5.20); White Blood Cell Count 11.69 K/mm3 (4.00-11.30)
[2024-04-24 06:01] LABS: Bun/Creatinine Ratio 25.6 (12.0-20.0); Calcium, Blood 8.2 mg/dL (8.5-10.1); Creatinine, Blood 0.9 mg/dL (0.40-1.00); Potassium, Blood 4.4 mmol/L (3.5-5.5)
[2024-04-24] MEDS ORDERED: Insulin Regular 100 UNIT/ML 10ML Vial SC SCH (07:30)
--- NOTE | 2024-04-24 18:14 | NUR ---
SHIFT SUMMARY- PT OBTUNDED TODAY, WHEN SHE WAKES SHE SCREAMS THE WHOLE TIME UNTIL SHE DRIFTS OFF. IV DILAUDID WAS GIVEN FOR PAIN MANAGEMENT. PT WAS UNABLE TO UNDERSTAND HER PILLS THIS MORNING, SHE GOT ONE PILL THAT DISOLVED IN HER MOUTH, SHE DID NOT INTENTIONALLY SWALLOW IT. SHE IS EATING MINIMAL AMOUNTS IF ANY OF HER MEALS. IS AWARE. IF THE PT SHOWS NO IMPROVEMENT BY TOMORROW MORNING PLANS TO MEET WITH THE AND PALLIATIVE CARE TO DISCUSS POTENTIAL TRANSITION TO COMFORT MEASURES AND HOSPICE CARE.
--- NOTE | 2024-04-24 20:42 | NUR ---
PATIENT IS ALERT TO SELF ONLY, UNABLE TO ANSWER QUESTIONS APPROPRIATELY. PATIENT IN UNABLE TO FOLLOW COMMANDS. PATIENT UNABLE TO DO SPEECH EVAL D/T NOT ABLE TO FOLLOW DIRECTIONS. AT THIS TIME IT IS TO THE BEST OF MY CLINICAL JUDGEMENT BASED OFF OF THE PATIENTS STATUS TO HOLD MEDS-NIGHT TIME MEDS HELD.
[2024-04-24] MEDS ORDERED: Apixaban 5 MG Tab PO SCH (21:00)
--- NOTE | 2024-04-25 04:32 | NUR ---
SHIFT SUMMARY. PATIENT YELLING OUT THIS SHIFT. PATIENT IS TALKING NONSENSICAL AND AT TIMES DIFFICULT TO UNDERSTAND. PATIENT WILL SAY SHE NEEDS TO TALK TO YOU AND WHEN ASKED WHAT WE NEED TO TALK ABOUT SHE TELL YOU TO SHUT UP. PATIENT IS VERY CONFUSED. PATIENT IS UNABLE TO ANSWER SIMPLE QUESTIONS. PATIENT REPOSITIONED T/O NIGHT. PATIENT MEDICATED X1 FOR PAIN. PATIENTS BLOOD PRESSURE AT BEGINNING OF SHIFT WAS SOFT. PATIENT HAS SUPRAPUBIC CATHETER-CATHETER CARE COMPLETED. BED IS LOCKED IN THE LOWEST POSITION WITH CALL LIGHT IN REACH-PATIENT NOT USING CALL LIGHT-FREQUENT CHECKS DONE THIS SHIFT. PATIENT WOUND IS ODOROUS. PATIENTS BED IS LOCKED IN THE LOWEST POSITION WITH CALL LIGHT IN REACH. CARE IS ONGOING.
[2024-04-25 05:24] VITALS: BP 103/51
[2024-04-25 05:49] LABS: BASOPHILS ABSOLUTE AUTO 0.07 K/mm3 (0.00-0.23); BASOPHILS PERCENT AUTO 1 % (0-2); EOSINOPHILS ABSOLUTE AUTO 0.13 K/mm3 (0.00-0.68); EOSINOPHILS PERCENT AUTO 1 % (0-6); Hematocrit 32.4 % (33.0-51.0); Hemoglobin 10.1 g/dL (11.5-16.0); IMMATURE GRAN ABSOLUTE AUTO 0.05 K/mm3 (0.00-0.10); IMMATURE GRAN PERCENT AUTO 1 % (0-1); LYMPHOCYTES ABSOLUTE AUTO 3.15 K/mm3 (0.84-5.20); LYMPHOCYTES PERCENT AUTO 32 % (21-46); MONOCYTES ABSOLUTE AUTO 1.02 K/mm3 (0.16-1.47); MONOCYTES PERCENT AUTO 10 % (4-13); Mean Corpuscular HGB 29.3 pg (26.0-34.0); Mean Corpuscular HGB Conc 31.2 g/dL (31.5-36.5); Mean Corpuscular Volume 94 fL (80-100); Mean Platelet Volume 9.8 fL (9.1-12.4); NEUTROPHILS ABSOLUTE AUTO 5.37 K/mm3 (1.96-9.15); NEUTROPHILS PERCENT AUTO 55 % (41-73); Platelet Count 374 K/mm3 (150-400); RDW Standard Deviation 55.4 fL (35.1-46.3); Red Blood Cell Count 3.45 M/mm3 (3.80-5.20); White Blood Cell Count 9.79 K/mm3 (4.00-11.30)
--- NOTE | 2024-04-25 06:09 | NUR ---
WOUND CARE COMPLETED. PATIENTS WOUND TO SACRAL REGION WAS WEAPING AND SATURADTED. THIS RN CHANGED DRESSING. WOUND CLEANED AND IRRIGATED, PACKED WITH SMALL KERLEX GAUCE ROLL AND COVERED WITH EXUDRY. PATIENT MEDICATED WITH PRN PAIN MEDICATIONS PRIOR TO DRESSING CHNAGE, THIS APPEARED TO AID IN THE PATIENTS COMFORT PATIENT SCREAMED OUT T/O THE DRESSING CHANGE BUT WAS ABLE TO RELAX ONCE REPOSITIONED. PATIENT IS RESTING WELL AT THIS TIME WITH RESPIRATIONS EQUAL AND UNLABORED.
[2024-04-25 06:42] LABS: Calcium, Blood 8.4 mg/dL (8.5-10.1); Creatinine, Blood 0.89 mg/dL (0.40-1.00); Potassium, Blood 4.2 mmol/L (3.5-5.5)
[2024-04-25 07:43] VITALS: BP 133/60
--- NOTE | 2024-04-25 11:27 | NUR ---
MET WITH MANSI AND DR. GILBERT. HE EXPRESSED THAT ROSSY WAS UPSET THAT SHE HAD TO COME TO THE HOSPITAL FOR TREATEMNT THIS TIME AROUND BUT WAS AGREEABLE. SINCE BEING HER SHE WAS UPSET WITH MANSI AND EXPRESSED THAT SHE DIDNT WANT TO SEE HIM. HE REPORTED THAT HE IS NOT SURE EXACTLY WHY BUT HE KNOWS SHE DOES NOT WANT TO BE HERE. HE SAID THAT THEY WERE CONSIDERING HOSPICE BEFORE THIS HOSPITILIZATION. DR. GILBERT AND I AGREED THAT IT WOULD BE APPROPRIATE AND DR. GILBERT REPORTED THAT SHE HAD SPOKEN TO DR. VILLASENOR (PATIENTS PRIMARY CARE PROVIDER) AND SHE HAD MENTIONED THE PATIENT WAS APPROPRIATE FOR HOSPICE. IS AGREEABLE TO HER COMING HOME WITH HOSPICE. I LET HIM KNOW THAT THIS SHOUNDS LIKE IT WOULD BE MORE INLINE WITH HER WISHES AND HOW SHE WANTS TO PROCEED WITH HER CARE. IS SUSPISIOUS THAT SHE MAY HAVE SOME UNDIAGNOSED DEMENTIA. I TOLD HIM IT WAS A POSSIBLILITY AND COULD EXPLAIN SOME OF HER BEHAVIORS. RELAYED INFORMATION TO BEDSIDE RN AND SPECTRAL SCIENTIST
--- NOTE | 2024-04-25 16:10 | NUR ---
RN CALLED AND LEFT VOICEMAIL FOR DR. THAKKAR AT [phone], REQUESTING RETURN CALL WITH WOUND CARE ORDERS.
[2024-04-25 17:43] VITALS: BP 102/53
[2024-04-25] MEDS ORDERED: FUROSEMIDE20 MG PO (18:46)
[2024-04-25 19:45] VITALS: BP 116/66
--- NOTE | 2024-04-25 19:54 | NUR ---
SHIFT SUMMARY- PT WAS MEDICATED FOR PAIN AT AROUND 1600. SHE WAS GIVEN A NEW IV PRIOR TO PAIN MEDS HERS WAS NO LONGER PATENT. PT WAS GIVEN A FULL BED BATH AND WUND DRESSINGS WERE CHANGED THEY WERE SATURATED. WOUND CARE ORDERS WERE PLACED BY DR FRANCES. DRESSING CHANGE AND BATH COMPLETED BY 1730 AND THE PT WAS REPOSITIONED ONTO HER RIGHT SIDE. SHE WENT TO SLEEP SOUNDLY THERE, NO MOANING NOTED, FOR THE FIRST TIME THIS SHIFT. BEDSIDE REPORT COMPLETED WITH NIGHT RN. PT WOKE AND SAID SHE WAS OK RIGHT NOW. PLAN IS FOR HER TO DC HOME WITH HOSPICE CARE. HER SPOUSE CAME IN TO SEE HER BRIEFLY AND SHE TOLD HIM TO LEAVE AND NOT COME BACK. SPOUSE IS BESIDE HIMSELF, HE WANTS TO DO WHAT IS NEEDED, BUT THE PT WONT LET HIM IN THE ROOM. THIS MAY CAUSE AN ISSUE FOR DISCHARGE. PT IN BED LAYING ON HER RIGHT SIDE, NC IN PLACE AT 3L NO S&S OF DISTRESS AT THE TIME OF BEDSIDE RPEORT.
--- NOTE | 2024-04-26 04:34 | NUR ---
SHIFT SUMMARY. PATIENT ALERT TO SELF ONLY. PATIENT HAS NONSENSICAL SPEECH WITH MINIMAL SENSICAL REPLIES 1-2 WORDS BEFORE RETURNING TO NONSENSICAL SPEECH. PATIENT IS BEDREST AT THIS TIME WITH A DECUB WOUND TO HER BUTTOCKS THAT RECEIVED AN I&D ON 04/23/24, PATIENT HAS AN ORDER FOR DAILY WOUND DRESSING TO BE DONE. PATIENT HAS RECIEVED A DOSE OF PAIN MEDICATIONS UP TO THIS POINT OF THE SHIFT. PATIENT RESTING OFF AND ON T/O NIGHT WITH RESPIRATIONS EQUAL AND UNLABORED. PATIENT REPOSITIONED. PATIENTS BED IS LOCKED IN THE LOWEST POSITION WITH CALL LIGHT IN REACH. CARE IS ONGOING.
[2024-04-26 05:56] VITALS: BP 109/53
[2024-04-26 07:13] VITALS: BP 117/61
[2024-04-26 08:51] LABS: BASOPHILS ABSOLUTE AUTO 0.08 K/mm3 (0.00-0.23); BASOPHILS PERCENT AUTO 1 % (0-2); EOSINOPHILS ABSOLUTE AUTO 0.17 K/mm3 (0.00-0.68); EOSINOPHILS PERCENT AUTO 2 % (0-6); Hematocrit 31.1 % (33.0-51.0); Hemoglobin 9.8 g/dL (11.5-16.0); IMMATURE GRAN ABSOLUTE AUTO 0.07 K/mm3 (0.00-0.10); IMMATURE GRAN PERCENT AUTO 1 % (0-1); LYMPHOCYTES ABSOLUTE AUTO 3.24 K/mm3 (0.84-5.20); LYMPHOCYTES PERCENT AUTO 34 % (21-46); MONOCYTES ABSOLUTE AUTO 0.76 K/mm3 (0.16-1.47); MONOCYTES PERCENT AUTO 8 % (4-13); Mean Corpuscular HGB 29.5 pg (26.0-34.0); Mean Corpuscular HGB Conc 31.5 g/dL (31.5-36.5); Mean Corpuscular Volume 94 fL (80-100); Mean Platelet Volume 9.2 fL (9.1-12.4); NEUTROPHILS ABSOLUTE AUTO 5.15 K/mm3 (1.96-9.15); NEUTROPHILS PERCENT AUTO 55 % (41-73); Platelet Count 384 K/mm3 (150-400); RDW Coefficient Variation 15.9 % (11.7-14.2); RDW Standard Deviation 54.5 fL (35.1-46.3); Red Blood Cell Count 3.32 M/mm3 (3.80-5.20); White Blood Cell Count 9.47 K/mm3 (4.00-11.30)
--- NOTE | 2024-04-26 09:00 | NUR ---
pt laying in bed yells out regularly, is not redirectable, does not follow commands, oriented to herself and spouce, lungs are clear t/o, dim in bases, resp even and unlabored, no cough noted, hrr, 1-2+ edema noted to b/l le, ppp faint, cap refill <3 sec, vs stable, afebrile, piv to lh, site is clear and patent, btx4 hypoactive, abd round soft, suprapubic cath in place draining cloudy yellow urine, skin has large decub to sacral area, I&D was done a few days ago, is bed bound, brandon, call light in reach.
[2024-04-26 09:17] LABS: Bun/Creatinine Ratio 27.4 (12.0-20.0); Calcium, Blood 8.5 mg/dL (8.5-10.1); Creatinine, Blood 0.73 mg/dL (0.40-1.00); Potassium, Blood 4.1 mmol/L (3.5-5.5)
[2024-04-26 15:14] VITALS: BP 168/89
[2024-04-26 16:53] VITALS: BP 107/71
--- NOTE | 2024-04-26 17:46 | NUR ---
PATIENT IS ALERT AND ORIENTED TO SELF AND HER . PATIENT MOANS IN PAIN, ASSESSED USING FLACC. MEDICATED PER EMAR. PT SWALLOWED HER PAIN PILL WITH WATER WITHOUT A PROBLEM THIS AFTERNOON. YELLS IN PAIN WITH REPOSITIONING. SHE WAS ABLE TO TALK ON THE PHONE WITH HER TODAY AND HE VISITED FOR A SHORT TIME. JOHNSON IN PLACE AND DRAINING DARK YELLOW URINE. STAFF PLACED THE PATIENT ON A BEDPAN WITHOUT A BM. SHE IS CALM AND RESTING AT THIS TIME
[2024-04-26 19:34] VITALS: BP 132/57
[2024-04-27 02:40] VITALS: BP 154/79
--- NOTE | 2024-04-27 06:31 | NUR ---
SHIFT SUMMARY PT ADMITTED FOR DUCUBITAL ULCER. PT HAS GENITAL HERPES. PT IS ALERT AND ORIENTED TIMES 1. PT DNR, ON ROOM AIR, NO TELE, AND HAS SUBRAPUBIC CATHETER. PT IS COOPERATIVE WITH CARE.. BED IN LOW POSITION, CALL LIGHT WITHIN REACH, RAILS TIMES 2.
[2024-04-27 07:39] VITALS: BP 135/64
[2024-04-27] MEDS ORDERED: AMOCLA875 PO (09:44)
[2024-04-27] MEDS ORDERED: VISBIOME 112.51 EACH PO (09:44)
--- NOTE | 2024-04-27 11:15 | NUR ---
DISCHARGE NOTE MS HADLEY IS VERY CONFUSED, OFF ON A TANGENT WITH LONG CONFUSED CONVERSATIONS THIS MORNING. SHE TOOK HER 0700 PO MED WITH [facility] BUT REFUSED TO TAKE ANY OF HER 9AM MEDS DESPITE TRYING FOR A LOG TIME. HER WAS THERE AND SAID THIS IS HOW SHE IS AT HOME AND SHE OFTEN DOES NOT TAKE HER MEDICATIONS. COMMUNITY LIAISON OFFICER AT BEDSIDE THIS AM DISCUSSING PLAN OF CARE WITH PT AND . MS HADLEY MAKES A LOT OF VERBAL NOISES, CALLING OUT WHEN TOUCHED, MOANING. REPOSITIONED Q2HRS, PADDED WITH PILLOWS AND HEEL PROTECTORS IN PLACE. IV ANALGESICS GIVEN THIS AM, SHE SEEMED A LITTLE MORE SETTLED AFTERARDS. DRESSING TO COCCYX/LOWER BACK WOUND WAS CLEAN AND DRY. UNFORTUNATELY I WAS UNABLE TO CHANGE THE DRESSING THIS AM BEFORE DISCHARGE. MEDICAL TRANSPORT PICKED HER UP AT 1045 AND SHE LEFT BY 1100HRS. PIV REMOVED PRIOR TO DISCHARGE.
== END 2024-04-27 11:02 | disposition hospice, home (50) | DRG 264 ==
LOC: ER 16:22 → MEDS 16:23 → ERHOLD 16:23 → MEDS 04-23 02:48
PROVIDERS: Emergency Medicine; Family Medicine; Internal Medicine; Surgery; ADMIT Student in an Organized Health Care Education/Training Program
PROC: 0KBP0ZZ Excision of Left Hip Muscle, Open Approach (ICD-10-PCS; principal; 2024-04-23 17:00)
DX: I96 Gangrene, not elsewhere classified (principal); L89.154 Pressure ulcer of sacral region, stage 4; I50.32 Chronic diastolic (congestive) heart failure; N39.0 Urinary tract infection, site not specified; Z66 Do not resuscitate; I48.91 Unspecified atrial fibrillation; E11.9 Type 2 diabetes mellitus without complications; E78.5 Hyperlipidemia, unspecified; I11.0 Hypertensive heart disease with heart failure; F03.90 Unspecified dementia, unspecified severity, without behavioral disturbance, psychotic disturbance, mood disturbance, and anxiety; D72.829 Elevated white blood cell count, unspecified; E03.9 Hypothyroidism, unspecified; G89.4 Chronic pain syndrome; M10.9 Gout, unspecified; A60.00 Herpesviral infection of urogenital system, unspecified; B96.4 Proteus (mirabilis) (morganii) as the cause of diseases classified elsewhere; E66.9 Obesity, unspecified; Z88.8 Allergy status to other drugs, medicaments and biological substances; Z88.5 Allergy status to narcotic agent; Z79.51 Long term (current) use of inhaled steroids; Z79.01 Long term (current) use of anticoagulants; Z79.890 Hormone replacement therapy; Z79.899 Other long term (current) drug therapy; Z90.89 Acquired absence of other organs; Z90.710 Acquired absence of both cervix and uterus; Z85.3 Personal history of malignant neoplasm of breast; Z90.12 Acquired absence of left breast and nipple; Z90.49 Acquired absence of other specified parts of digestive tract; Z98.890 Other specified postprocedural states; Z90.722 Acquired absence of ovaries, bilateral; Z86.711 Personal history of pulmonary embolism
CPT/HCPCS: 36415; 74177; 80048; 80053; 81001; 82947; 83036; 83605; 84443; 85025; 85651; 86140; 87040; 87070; 87071; 87075; 87076; 87077; 87086; 87106; 87185; 87186; 87205; 93005; 93010; 94762; 96365; 96375; 96376; 99284-25; A9270; G0378; J0692; J1171; J1815; J2371; J2405; J2543; J2704; J3010; J7050; J7120; Q9967